=== PATIENT | male | born 1950 | race Two or more races ===

== ENCOUNTER 2017-03-24 13:59 | Emergency (ER) | payer MEDICARE, OTHER ==
[~2017-03-24] VITALS: Ht 162.6 cm; Wt 81.6 kg
[~2017-03-24 13:59] MED LIST: NOVALOG INSULIN
[2017-03-24] MEDS ORDERED: SILVER SULFADIAZINE 1% CREAM 50 GM TP ONE (14:15)
--- NOTE | 2017-03-24 14:20 | NUR ---
dressing applied to LT foot per md order.
[2017-03-24] MEDS ORDERED: SILVER SULFADIAZINE 1% CREAM 25 GM TUBE TP ONE (14:25)
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
== END 2017-03-24 14:34 | disposition home or self-care (01) ==
LOC: ER 14:02
DX: T25.232A Burn of second degree of left toe(s) (nail), initial encounter (principal); I10 Essential (primary) hypertension; F32.9 Major depressive disorder, single episode, unspecified; E11.9 Type 2 diabetes mellitus without complications; Z79.4 Long term (current) use of insulin; Z88.1 Allergy status to other antibiotic agents; Z94.0 Kidney transplant status; X11.8XXA Contact with other hot tap-water, initial encounter; Y93.G3 Activity, cooking and baking; Y92.009 Unspecified place in unspecified non-institutional (private) residence as the place of occurrence of the external cause; Y99.8 Other external cause status
CPT/HCPCS: 16020; A4663

== ENCOUNTER 2017-09-16 20:19 | Emergency (ER) | payer MEDICARE, MEDICAID ==
[~2017-09-16] VITALS: Ht 160 cm; Wt 81.6 kg
[2017-09-16] MEDS ORDERED: [UNRECOGNIZED DRUG - OTHER] (20:39)
[2017-09-16] MEDS ORDERED: PROPRANOLOL 20 MG (20:39)
[2017-09-16] MEDS ORDERED: GENGRAF (20:39)
[2017-09-16] MEDS ORDERED: SIMVASTATIN (20:39)
[2017-09-16] MEDS ORDERED: CYCLOSPORINE 25 MG (20:39)
[2017-09-16] MEDS ORDERED: EZETIMIBE (20:39)
[2017-09-16] MEDS ORDERED: MOD (20:39)
[2017-09-16] MEDS ORDERED: RANITIDINE 150 MG (20:39)
[2017-09-16] MEDS ORDERED: NIFEDIPINE 30 MG (20:39)
[2017-09-16] MEDS ORDERED: LEVEMIR (20:39)
--- NOTE | 2017-09-16 21:55 | NUR ---
PT DECIDED TO LEAVE . STATED HE WAS TIRED OF WAITING.
== END 2017-09-16 21:55 | disposition left against medical advice (07) ==
LOC: ER 20:19
DX: Z53.21 Procedure and treatment not carried out due to patient leaving prior to being seen by health care provider (principal)
CPT/HCPCS: A4663

== ENCOUNTER 2017-09-28 23:38 | Emergency (ER) | payer MEDICARE, MEDICAID ==
[~2017-09-28] VITALS: Ht 162.6 cm; Wt 81.6 kg
[~2017-09-28 23:38] MED LIST changes: +CYCLOSPORINE 25 MG; +EZETIMIBE; +GENGRAF; +LEVEMIR; +MOD; +NIFEDIPINE 30 MG; +PROPRANOLOL 20 MG; +RANITIDINE 150 MG; +SIMVASTATIN; +[UNRECOGNIZED DRUG - OTHER]
--- NOTE | 2017-09-29 00:01 | NUR ---
[id number] who stated she will dispatch officers to come take a report from the pt.
[2017-09-29] MEDS ORDERED: HYDROCODONE/APAP 10-325 MG TABLET PO ONE (00:15)
[2017-09-29] MEDS ORDERED: ONDANSETRON ODT 4 MG TAB.RAPDIS SL ONE (00:15)
[2017-09-29] MEDS ORDERED: HYDROCODONE/APAP 10-325 MG TABLET ONE (00:32)
[2017-09-29] MEDS ORDERED: ONDANSETRON ODT 4 MG TAB.RAPDIS ONE (00:32)
--- NOTE | 2017-09-29 01:24 | NUR ---
Patient does not wish to proceed with medical care recommended by Dr. Pena. Patient given information related to possible complications, up to and including , which could occur as a result of leaving the hospital at this time. Patient verbalizes understanding of risks involved due to leaving against medical advice. Patient has signed AMA form. Written and verbal after care instructions given. Patient verbalizes understanding of instructions.
== END 2017-09-29 01:33 | disposition home or self-care (01) ==
LOC: ER 23:43
DX: M54.2 Cervicalgia (principal); M25.561 Pain in right knee; I10 Essential (primary) hypertension; E66.9 Obesity, unspecified; E11.9 Type 2 diabetes mellitus without complications; Z79.4 Long term (current) use of insulin; Z88.2 Allergy status to sulfonamides; Z98.890 Other specified postprocedural states; V03.10XA Pedestrian on foot injured in collision with car, pick-up truck or van in traffic accident, initial encounter; Y92.410 Unspecified street and highway as the place of occurrence of the external cause; Y93.89 Activity, other specified; Y99.8 Other external cause status
CPT/HCPCS: 72125; 72170; 73551; 73560; A4663; Q0162

== ENCOUNTER 2017-10-15 23:24 | Inpatient (IN) | payer MEDICARE, MEDICAID ==
[~2017-10-15] VITALS: Ht 152.4 cm; Wt 95.3 kg
[2017-10-16] VITALS (23 sets, daily range): BP systolic 95–179; BP diastolic 52–96
[2017-10-16] MEDS ORDERED: LABETALOL HCL 100 MG/20 ML VIAL IV ONE ×2 (00:15→03:15)
[2017-10-16] MEDS ORDERED: IV NORMAL SALINE 500 ML BAG IV ONE (00:15)
[2017-10-16] MEDS ORDERED: ONDANSETRON IV *ER 4 MG/2 ML VIAL IV ONE (00:15)
[2017-10-16] MEDS ORDERED: TAMSULOSIN CAP 0.4MG (00:18)
[2017-10-16] MEDS ORDERED: PANTOPRAZOLE TAB 40MG (00:18)
--- NOTE | 2017-10-16 00:20 | NUR ---
ASKED FOR LIST OF MEDICATIONS AND SHE DOESN'T HAVE A LIST.WILL BRING IN MEDS
[2017-10-16 00:22] LABS: BASOPHILS # (AUTO) 0.1 K/uL (0.0-8.0); BASOPHILS % (AUTO) 0.9 % (0.0-2.0); EOSINOPHILS # (AUTO) 0.1 K/uL (0.0-0.7); EOSINOPHILS % (AUTO) 1.5 % (0.0-7.0); HEMATOCRIT 43.5 % (36.7-47.1); HEMOGLOBIN 14.2 g/dL (12.5-16.3); LYMPHOCYTES # (AUTO) 1.2 K/uL (20.0-40.0); LYMPHOCYTES % (AUTO) 22.7 % (20.5-51.5); MEAN CORPUSCULAR HEMOGLOBIN 28.4 uug (23.8-33.4); MEAN CORPUSCULAR HGB CONC 33 g/dL (32.5-36.3); MEAN CORPUSCULAR VOLUME 86.8 fL (73.0-96.2); MONOCYTES # (AUTO) 0.5 K/uL (2.0-10.0); MONOCYTES % (AUTO) 8.2 % (0.0-11.0); NEUTROPHILS # (AUTO) 3.7 K/uL (1.8-8.9); NEUTROPHILS % (AUTO) 66.7 % (38.5-71.5); PLATELET COUNT (AUTO) 194 K/uL (152-348); RED BLOOD CELL COUNT(AUTO) 5.01 MIL/uL (4.06-5.63); WHITE BLOOD COUNT (AUTO) 5.5 K/uL (3.6-10.2)
[2017-10-16] MEDS ORDERED: LORAZEPAM 2 MG/1 ML VIAL IV ONE ×3 (00:30→02:45)
[2017-10-16] MEDS ORDERED: LABETALOL HCL 100 MG/20 ML VIAL ONE (00:31)
[2017-10-16] MEDS ORDERED: ONDANSETRON 4 MG/2 ML VIAL ONE (00:31)
--- NOTE | 2017-10-16 00:33 | NUR ---
Pt seen by Dr. Mcgill. IV established, labs drawn and sent. Pt medicated for discomfort, will monitor for effects of medication. Fluid bolus infusing freely to gravity. Pt to CT via sergio
[2017-10-16 00:37] LABS: BILIRUBIN,DIRECT 0.1 mg/dL (0.0-0.2); BILIRUBIN,TOTAL 0.7 mg/dL (0.2-1.0); CREATININE 2.5 mg/dL (0.6-1.3); TOTAL PROTEIN, SERUM 7.4 g/dL (6.4-8.2)
[2017-10-16] MEDS ORDERED: LORAZEPAM 2 MG/1 ML VIAL ONE ×3 (00:37→02:49)
--- NOTE | 2017-10-16 00:45 | NUR ---
Pt returned from CT via gurney. Pt continues to be confused. Attempting to climb out of bed, pulling at lines and wires. Unable to re-direct, family at bedside. Pt placed in soft wrists restraints.
[2017-10-16 00:59] LABS: *AMPHETAMINE, URINE NEGATIVE (NEGATIVE); *BARBITURATE, URINE NEGATIVE (NEGATIVE); *CANNABINOID, URINE NEGATIVE (NEGATIVE); *COCCAINE, URINE NEGATIVE (NEGATIVE); *OPIATE, URINE NEGATIVE (NEGATIVE); *PHENCYCLIDINE SCREEN,URINE NEGATIVE (NEGATIVE)
[2017-10-16] MEDS ORDERED: INSULIN REGULAR, HUMAN 100 UNITS in IV NORMAL SALINE 100 ML IV ONE ×2 (01:00)
--- NOTE | 2017-10-16 01:00 | NUR ---
Unable to obtain accurate blood pressure due to pt moving, restless and cont pulling at lines. MD notified, awaiting further orders.
[2017-10-16] MEDS ORDERED: IV NORMAL SALINE 1000 ML BAG IV ONE (01:15)
[2017-10-16] MEDS ORDERED: diphenhydrAMINE 50 MG/1 ML VIAL IV ONE (01:30)
[2017-10-16] MEDS ORDERED: HALOPERIDOL LACTATE 5 MG/1 ML VIAL IV ONE (01:30)
--- NOTE | 2017-10-16 01:35 | NUR ---
After multiple medications, repositioning and restraints remain in place a bp was obtained. MD notified awaiting further orders.
[2017-10-16] MEDS ORDERED: HALOPERIDOL LACTATE 5 MG/1 ML VIAL ONE (01:37)
[2017-10-16] MEDS ORDERED: diphenhydrAMINE 50 MG/1 ML VIAL ONE (01:45)
[2017-10-16 01:53] LABS: ABG BASE EXCESS -3.1 mmol/L; ABG HCO3 22.6 mmol/L; ABG PCO2 42.8 mmHg (35.0-45.0); ABG PH 7.341 (7.350-7.450); ABG PO2 59.2 mmHg (75.0-100.0); ABG SITE RIGHT RADIAL; ABG TOTAL HEMOGLOBIN 14.1 G/dL (13.5-18.0); COHb 1.5 % (0.5-1.5); MetHb 0.3 % (0.0-1.5); O2Hb 87.4 % (94.0-97.0); VENT MODE ROOM AIR
[2017-10-16 01:58] LABS: *BILIRUBIN,URIN NEGATIVE (NEGATIVE); *BLOOD, URINE Trace-lysed (NEGATIVE); *CLARITY,URINE CLEAR (CLEAR); *COLOR,URINE STRAW (YELLOW); *KETONES,URINE NEGATIVE (NEGATIVE); *PROTEIN,URINE 2+ (NEGATIVE); *UROBILINOGEN,URINE 0.2 E.U./dl (NORMAL); LEUKOCYTE ESTERASE ,URINE NEGATIVE (NEGATIVE); NITRITE, URINE NEGATIVE (NEGATIVE)
[2017-10-16 02:06] LABS: UGLUCOSE 2+ (NEGATIVE)
[2017-10-16 02:08] LABS: BACTERIA,URINE NONE SEEN /HPF (NONE SEEN); RBC,URINE 0-3 /HPF (0-3); SQUAMOUS EPITHELIAL CELL,UR FEW /HPF (NONE SEEN); WBC,URINE NONE SEEN /HPF (0-3)
[2017-10-16] MEDS ORDERED: INSULIN REGULAR, HUMAN 300 UNIT/3 ML VIAL ONE (02:50)
--- NOTE | 2017-10-16 03:05 | NUR ---
Dr. Mcgill notified of pt's cont elevated bp and pt was medicated, will monitor for effects.
--- NOTE | 2017-10-16 03:25 | NUR ---
initial blood sugar from lab draw was 827. Finger stick prior to starting insulin drip was "hi"
--- NOTE | 2017-10-16 04:05 | NUR ---
Report called to JESSENIA Fowler. Preparing to transfer pt to the CCU
--- NOTE | 2017-10-16 04:48 | NUR ---
f/s done and result was 536 on insulin drip at 10 units/hr received from ER , called md service .on insulin pre -printed physician orders . PATIENT VERY CONFUSED RESTRAINTS protocol observed followed and implemented . patient maex4. doesn't follow commands .Andres to bsd . 02 nasal cannula at 3 l/min . no family noted .no belongings noted .
[2017-10-16] MEDS ORDERED: INSULIN REGULAR, HUMAN 100 UNIT in IV NORMAL SALINE 99 ML IV PRN ×2 (05:00)
--- NOTE | 2017-10-16 05:00 | NUR ---
spoked with doctor HAQUE and informed about patient mentation .,confused and fs of 536 with order to increase insulin drip to 12 units /hr and continue to follow insulin iv drip protocol .
[2017-10-16] MEDS ORDERED: ACETAMINOPHEN ES 500 MG TABLET PO PRN (05:15)
[2017-10-16] MEDS ORDERED: ONDANSETRON 4 MG/2 ML VIAL IV PRN (05:15)
[2017-10-16] MEDS ORDERED: hydrALAZINE HCL 20 MG/1 ML VIAL IV PRN (05:15)
[2017-10-16] MEDS ORDERED: IV NS 1000 ML 1,000 ML IV SCH (05:15)
[2017-10-16] MEDS ORDERED: hydrALAZINE HCL 20 MG/1 ML VIAL ONE (05:36)
[2017-10-16] MEDS: BLOOD SUGAR DIAGNOSTIC 1 EACH STRIP VI SCH ×19 (06:00→23:00)
[2017-10-16 06:32] LABS: CREATININE 2.3 mg/dL (0.6-1.3); POTASSIUM 4.5 mmol/L (3.5-5.1)
--- NOTE | 2017-10-16 07:00 | NUR ---
CONCERNING THE EMAR WITH THE ACCU CHECK AT 0600AM AND 0700AM STILL APPEARING MAGENTA. PT IS ON INSULIN DRIP. WORKERS COMPENSATION CLAIMS SPECIALIST RN DOCUMENTED THE FINGERSTICKS RESULT ON BOTH 0600A WHICH IS 408 IN HER NURSING NOTES AND HAD A COVERAGE EXTRA ORDER FROM THE MD TO CONTINUE INSULIN DRIP TO 12UNITS. AT 0700AM FS IS 232, AND WITH INSULIN DRIP PROTOCOL, THE RATE DROPPED DOWN TO 2UNITS WITH 2 RN'S SIGNATURES.
--- NOTE | 2017-10-16 07:00 | NUR ---
0448- FINGERSTICK DONE B/S IS 536 CALLED MD ,WITH ORDER TO INCREASE TO 12 UNITS/HR . 0600-FINGERSTICK B/S 408 CONTINUE WITH 12 UNITS /HR. 0700- FINGERSTICK B/S 232 DECREASE TO 2 UNITS /HR .
--- NOTE | 2017-10-16 07:25 | NUR ---
pt is noted to be agitated. Restraints are noted on the pt, open restraints to check for circulation, circulation is good. Noted insulin drip at 2 units per hour is programed in the pump. Blood sugar check being done by arelis kent. Will continue to monitor. Addendum: 10/16/17 at 1140 by BROCK VASQUES RN PT IS ON 3L NC, NO S/S OF RESPIRATORY DISTRESS NOTED. NO PAIN NOTED. ALL SAFETY NEEDS ARE MET.
--- NOTE | 2017-10-16 08:18 | NUR ---
DR CHESTER IS HERE TO ASSESS THE PT, PER DR. CHESTER PUT PICC LINE ORDER IN, POSSIBLE PLACEMENT OF NG TOMORROW.
[2017-10-16] MEDS ORDERED: ACETAMINOPHEN 650 MG SUPP.RECT RC PRN (08:30)
[2017-10-16] MEDS: IV NS 1000 ML 1,000 ML IV PRN (08:49)
--- NOTE | 2017-10-16 09:00 | NUR ---
PICC IS INSERTED BY A PICC LINE NURSE JACQUE. CONTRERAS S/S OF BLEEDING NOTED.
--- NOTE | 2017-10-16 10:24 | NUR ---
talked to the pt's stephanie bacon, asked in regards of dosage of the pt's home medication. Per the , "I will fax it over", provided Med Surg number due to the fact that CCU fax is not working
--- NOTE | 2017-10-16 11:45 | NUR ---
PER Jared LUNA "CONTINUE EVERYTHING FROM THE LIST".
--- NOTE | 2017-10-16 11:54 | NUR ---
RECEIVED FAX FROM THE PT'S WITH PT'S MEDICATIONS. PAGED COMBINATION MACHINE TENDER IN REGARDS OF THE MEDICATIONS, AWAITING RESPONSE. Addendum: 10/16/17 at 1223 by BROCK VASQUES RN the medication list is incomplete, some medication's dosage varies in its strength. Addendum: 10/16/17 at 1232 by BROCK VASQUES RN TALKED TO THE , PER "I WILL BE COMING OVER WITH HIS MEDICATIONS, THERE ARE TWO BOTTLES [OF THE SAME MEDICATION, WITH DIFFERENT DOSAGE]". "I WILL BE THERE BEFORE VISITATION HOURS IS OVER.'
[2017-10-16] MEDS ORDERED: EZET1TAB27 PO (12:01)
[2017-10-16] MEDS ORDERED: CYCL100C PO (12:01)
[2017-10-16] MEDS ORDERED: DONE10TA11 PO (12:01)
[2017-10-16] MEDS ORDERED: MYCO250C PO (12:01)
[2017-10-16] MEDS ORDERED: METO50TA16 PO (12:03)
[2017-10-16] MEDS ORDERED: PROP20TA7 PO (12:03)
[2017-10-16] MEDS ORDERED: EZET1TAB31 PO (12:03)
[2017-10-16] MEDS ORDERED: CITA20TA19 PO (12:03)
[2017-10-16] MEDS ORDERED: PRED-170 PO (12:05)
[2017-10-16] MEDS ORDERED: NIFE30TA2 PO (12:05)
[2017-10-16] MEDS ORDERED: HYDR-3326 PO (12:05)
[2017-10-16] MEDS ORDERED: CYCL25CA13 PO (12:06)
[2017-10-16] MEDS ORDERED: SULF1TAB47 PO (12:06)
[2017-10-16 12:40] LABS: CREATININE 2.3 mg/dL (0.6-1.3); POTASSIUM 3.7 mmol/L (3.5-5.1)
[2017-10-16] MEDS ORDERED: RANI150T12 PO (14:17)
[2017-10-16] MEDS ORDERED: TAMS-3 PO (14:17)
[2017-10-16] MEDS ORDERED: METO50TA7 PO (14:17)
[2017-10-16] MEDS ORDERED: INSU100V10 SQ (14:17)
[2017-10-16] MEDS ORDERED: INSU100V11 SQ (14:19)
[2017-10-16] MEDS ORDERED: LIRA0.6P2 SUBCUT (14:19)
[2017-10-16] MEDS ORDERED: HYDROCODONE/APAP 5-325MG TABLET PO PRN (15:00)
[2017-10-16] MEDS ORDERED: INSULIN ASPART 1000 UNITS/10 ML VIAL(NOVOLOG) SQ PRN (15:00)
--- NOTE | 2017-10-16 19:00 | NUR ---
restraints are removed, no skin breakdown noted Addendum: 10/16/17 at 1901 by BROCK VASQUES RN occurred at 1620
[2017-10-16] MEDS: CYCLOSPORINE 25 MG PO SCH (21:04)
[2017-10-16] MEDS: [UNRECOGNIZED DRUG - OTHER] PO SCH (21:04)
[2017-10-17] VITALS (24 sets, daily range): BP systolic 96–157; BP diastolic 41–94
[2017-10-17] MEDS: BLOOD SUGAR DIAGNOSTIC 1 EACH STRIP VI SCH ×13 (00:04→21:01)
[2017-10-17] MEDS: LORAZEPAM 2 MG/1 ML VIAL IV PRN (00:48)
[2017-10-17] MEDS: IV NS 1000 ML 1,000 ML IV PRN ×3 (02:40→23:15)
[2017-10-17 04:45] LABS: CREATININE 1.7 mg/dL (0.6-1.3); MAGNESIUM 1.9 mg/dL (1.8-2.4); PHOSPHOROUS 4.1 mg/dL (2.5-4.9); POTASSIUM 3.8 mmol/L (3.5-5.1)
[2017-10-17 05:24] LABS: BASOPHILS # (AUTO) 0.1 K/uL (0.0-8.0); BASOPHILS % (AUTO) 0.8 % (0.0-2.0); EOSINOPHILS # (AUTO) 0.1 K/uL (0.0-0.7); HEMATOCRIT 38.9 % (36.7-47.1); HEMOGLOBIN 13.1 g/dL (12.5-16.3); LYMPHOCYTES # (AUTO) 1.9 K/uL (20.0-40.0); LYMPHOCYTES % (AUTO) 25.1 % (20.5-51.5); MEAN CORPUSCULAR HEMOGLOBIN 28.5 uug (23.8-33.4); MEAN CORPUSCULAR HGB CONC 34 g/dL (32.5-36.3); MEAN CORPUSCULAR VOLUME 84.7 fL (73.0-96.2); MONOCYTES # (AUTO) 0.7 K/uL (2.0-10.0); MONOCYTES % (AUTO) 10.1 % (0.0-11.0); NEUTROPHILS # (AUTO) 4.6 K/uL (1.8-8.9); PLATELET COUNT (AUTO) 182 K/uL (152-348); RED BLOOD CELL COUNT(AUTO) 4.59 MIL/uL (4.06-5.63); WHITE BLOOD COUNT (AUTO) 7.4 K/uL (3.6-10.2)
[2017-10-17] MEDS: NIFEdipine XL 30 MG TABSR PO SCH (08:20)
[2017-10-17] MEDS: CITALOPRAM 20 MG TABLET PO SCH (08:20)
[2017-10-17] MEDS: METOPROLOL SUCCINATE XL 50 MG TAB.SR.24H PO SCH (08:21)
[2017-10-17] MEDS: DONEPEZIL 10 MG TABLET PO SCH (08:23)
[2017-10-17] MEDS: TAMSULOSIN HCL 0.4 MG CAP.SR.24H PO SCH (08:24)
[2017-10-17] MEDS: MYCOPHENOLATE MOFETIL 250 MG CAPSULE PO SCH ×2 (08:34→20:49)
[2017-10-17] MEDS: [UNRECOGNIZED DRUG - OTHER] PO SCH ×2 (08:35→20:49)
[2017-10-17] MEDS: CYCLOSPORINE PO SCH ×2 (08:35→20:49)
[2017-10-17] MEDS ORDERED: INSULIN GLARGINE,HUM 300 UNITS/3 ML CARTRIDGE SQ SCH (09:00)
[2017-10-17] MEDS ORDERED: predniSONE 5 MG TABLET PO SCH (09:00)
[2017-10-17] MEDS: [UNRECOGNIZED DRUG - OTHER] PO SCH ×2 (09:20→20:51)
[2017-10-17] MEDS: CYCLOSPORINE 25 MG PO SCH ×2 (09:20→20:51)
[2017-10-17] MEDS ORDERED: INSULIN REGULAR, HUMAN 300 UNIT/3 ML VIAL SQ ONE (12:30)
--- NOTE | 2017-10-17 12:30 | NUR ---
dr rebollar is here to assess the pt, pt report given
[2017-10-17] MEDS ORDERED: DEXTROSE 50% 50 ML DISP.SYRIN IV PRN (12:45)
[2017-10-17] MEDS: predniSONE 5 MG TABLET PO SCH (15:00)
[2017-10-17] MEDS: INSULIN REGULAR, HUMAN 300 UNIT/3 ML VIAL SQ PRN (16:59)
[2017-10-17] MEDS: [UNRECOGNIZED DRUG - OTHER] PO SCH (20:48)
[2017-10-17] MEDS: SIMVASTATIN PO SCH (20:48)
[2017-10-17] MEDS: EZETIMIBE PO SCH (20:48)
[2017-10-17] MEDS: FAMOTIDINE 20 MG TABLET PO SCH (20:51)
[2017-10-17] MEDS: INSULIN REGULAR, HUMAN 300 UNITS/3 ML VIAL SQ PRN (21:02)
[2017-10-18] VITALS (10 sets, daily range): BP systolic 103–145; BP diastolic 55–74
[2017-10-18 05:13] LABS: CREATININE 1.3 mg/dL (0.6-1.3); MAGNESIUM 1.9 mg/dL (1.8-2.4); POTASSIUM 4.7 mmol/L (3.5-5.1)
[2017-10-18 05:22] LABS: BASOPHILS % (AUTO) 0.5 % (0.0-2.0); EOSINOPHILS # (AUTO) 0.1 K/uL (0.0-0.7); EOSINOPHILS % (AUTO) 1.2 % (0.0-7.0); HEMATOCRIT 39.3 % (36.7-47.1); HEMOGLOBIN 12.8 g/dL (12.5-16.3); LYMPHOCYTES # (AUTO) 1.4 K/uL (20.0-40.0); MEAN CORPUSCULAR HEMOGLOBIN 28.1 uug (23.8-33.4); MEAN CORPUSCULAR HGB CONC 33 g/dL (32.5-36.3); MEAN CORPUSCULAR VOLUME 85.8 fL (73.0-96.2); MONOCYTES # (AUTO) 0.5 K/uL (2.0-10.0); MONOCYTES % (AUTO) 7.9 % (0.0-11.0); NEUTROPHILS # (AUTO) 4.7 K/uL (1.8-8.9); NEUTROPHILS % (AUTO) 69.4 % (38.5-71.5); PLATELET COUNT (AUTO) 179 K/uL (152-348); RED BLOOD CELL COUNT(AUTO) 4.57 MIL/uL (4.06-5.63); WHITE BLOOD COUNT (AUTO) 6.7 K/uL (3.6-10.2)
[2017-10-18] MEDS: TAMSULOSIN HCL 0.4 MG CAP.SR.24H PO SCH (07:50)
[2017-10-18] MEDS: CITALOPRAM 20 MG TABLET PO SCH (07:50)
[2017-10-18] MEDS: predniSONE 5 MG TABLET PO SCH (07:52)
[2017-10-18] MEDS: NIFEdipine XL 30 MG TABSR PO SCH (07:52)
[2017-10-18] MEDS: METOPROLOL SUCCINATE XL 50 MG TAB.SR.24H PO SCH (07:53)
[2017-10-18] MEDS: DONEPEZIL 10 MG TABLET PO SCH (07:53)
[2017-10-18] MEDS: CYCLOSPORINE 25 MG PO SCH ×2 (07:54→21:07)
[2017-10-18] MEDS: [UNRECOGNIZED DRUG - OTHER] PO SCH ×2 (07:54→21:07)
[2017-10-18] MEDS: MYCOPHENOLATE MOFETIL 250 MG CAPSULE PO SCH ×2 (07:54→20:52)
[2017-10-18] MEDS: [UNRECOGNIZED DRUG - OTHER] PO SCH ×2 (07:55→21:07)
[2017-10-18] MEDS: CYCLOSPORINE PO SCH ×2 (07:55→21:07)
[2017-10-18] MEDS: BLOOD SUGAR DIAGNOSTIC 1 EACH STRIP VI SCH ×4 (08:23→21:04)
[2017-10-18] MEDS: INSULIN REGULAR, HUMAN 300 UNIT/3 ML VIAL SQ PRN ×3 (08:25→16:05)
--- NOTE | 2017-10-18 08:55 | NUR ---
Dr. Worthy here to see pt. Full report given. New orders received. stated that it was okay to downgrade pt to telemetry status.
[2017-10-18] MEDS ORDERED: SULFAMETH/TRIMETH 800/160 MG TABLET PO SCH (09:00)
--- NOTE | 2017-10-18 09:30 | NUR ---
Physical therapy here to see pt.
[2017-10-18] MEDS: LIRAGLUTIDE SQ SCH (09:37)
[2017-10-18] MEDS: [UNRECOGNIZED DRUG - OTHER] SQ SCH (09:37)
--- NOTE | 2017-10-18 13:25 | NUR ---
Full telephone SBAR report given to BENJAMIN Mills. Pt wheeled and transferred to 220-T with telemetry box. Pt stable and nad noted upon transferring to the unit.
--- NOTE | 2017-10-18 13:30 | NUR ---
PT RECEIVED FROM CCU VIA WHEELCHAIR IN STABLE CONDITION.V/S ARE STABLE.
--- NOTE | 2017-10-18 20:15 | NUR ---
nsg: called Dr. Worthy to verify inpatient status, whether tele or regan. per Dr. Worthy, pt is a regan status.
[2017-10-18] MEDS: SIMVASTATIN PO SCH (20:53)
[2017-10-18] MEDS: FAMOTIDINE 20 MG TABLET PO SCH (20:53)
[2017-10-18] MEDS: [UNRECOGNIZED DRUG - OTHER] PO SCH (20:53)
[2017-10-18] MEDS: EZETIMIBE PO SCH (20:53)
--- NOTE | 2017-10-18 21:00 | NUR ---
nsg: pt had episode of projectile vomiting. medicated with zofran. will monitor. hs meds on hold at this time until n/v subsided.
[2017-10-18] MEDS: INSULIN REGULAR, HUMAN 300 UNITS/3 ML VIAL SQ PRN (21:05)
--- NOTE | 2017-10-18 22:00 | NUR ---
nsg: pt feels better. no episode of vomiting. gave all hs po meds.
[2017-10-18] MEDS: LORAZEPAM 2 MG/1 ML VIAL IV PRN (22:13)
[2017-10-19 00:08] VITALS: BP 132/63
[2017-10-19] MEDS: LORAZEPAM 2 MG/1 ML VIAL IV PRN (03:52)
[2017-10-19 04:00] VITALS: BP 186/81
--- NOTE | 2017-10-19 05:30 | NUR ---
NSG: pt awake but confused. a/o x 1, needs reorientation that he is in the hospital. received 2mg ativan ivp. pt unsteady, needs a sitter for safety. called , talked to pt but refused to come at this time. per to just medicate pt so he wont be anxious. explained to that ativan has been given, and that pt still wanders in the hallway, unsteady, wants to leave the hospital. cont to monitor. notified charge nurse and metal hanging supervisor that pt needs a 1:1 sitter for safety.
[2017-10-19 06:20] VITALS: BP 156/62
--- NOTE | 2017-10-19 06:55 | NUR ---
nsg: pt is still confused, a/o x 1. spoke with , upset that she's been called several times. pt also called 911. pt needs sitter.
[2017-10-19] MEDS: BLOOD SUGAR DIAGNOSTIC 1 EACH STRIP VI SCH ×2 (07:46→11:07)
[2017-10-19] MEDS: INSULIN REGULAR, HUMAN 300 UNIT/3 ML VIAL SQ PRN ×2 (07:48→11:08)
[2017-10-19 08:00] VITALS: BP 138/82
--- NOTE | 2017-10-19 08:10 | NUR ---
SEEN BY DR JIMENEZ MADE AWARE ABOUT SEVERE CONFUSION AND WONDERS AROUND CONTINUE 1:1 SITTER, CHANGE STATUS TO TELE, PLAN DC TODAY IF LESS CONFUSE
[2017-10-19] MEDS: NIFEdipine XL 30 MG TABSR PO SCH (08:30)
[2017-10-19] MEDS: TAMSULOSIN HCL 0.4 MG CAP.SR.24H PO SCH (08:30)
[2017-10-19] MEDS: CITALOPRAM 20 MG TABLET PO SCH (08:30)
[2017-10-19] MEDS: DONEPEZIL 10 MG TABLET PO SCH (08:30)
[2017-10-19] MEDS: METOPROLOL SUCCINATE XL 50 MG TAB.SR.24H PO SCH (08:30)
[2017-10-19] MEDS: predniSONE 5 MG TABLET PO SCH (08:30)
[2017-10-19] MEDS: [UNRECOGNIZED DRUG - OTHER] PO SCH (08:31)
[2017-10-19] MEDS: CYCLOSPORINE PO SCH (08:31)
[2017-10-19] MEDS: [UNRECOGNIZED DRUG - OTHER] PO SCH (08:32)
[2017-10-19] MEDS: CYCLOSPORINE 25 MG PO SCH (08:32)
[2017-10-19 09:44] LABS: BILIRUBIN,TOTAL 0.9 mg/dL (0.2-1.0); CREATININE 1.5 mg/dL (0.6-1.3); MAGNESIUM 1.8 mg/dL (1.8-2.4); PHOSPHOROUS 3.1 mg/dL (2.5-4.9); POTASSIUM 4.2 mmol/L (3.5-5.1); TOTAL PROTEIN, SERUM 6.9 g/dL (6.4-8.2)
[2017-10-19 09:58] LABS: BASOPHILS % (AUTO) 0.4 % (0.0-2.0); EOSINOPHILS # (AUTO) 0.1 K/uL (0.0-0.7); EOSINOPHILS % (AUTO) 1.9 % (0.0-7.0); HEMATOCRIT 40.9 % (36.7-47.1); HEMOGLOBIN 13.3 g/dL (12.5-16.3); LYMPHOCYTES # (AUTO) 1.4 K/uL (20.0-40.0); LYMPHOCYTES % (AUTO) 19.5 % (20.5-51.5); MEAN CORPUSCULAR HEMOGLOBIN 27.8 uug (23.8-33.4); MEAN CORPUSCULAR HGB CONC 32 g/dL (32.5-36.3); MEAN CORPUSCULAR VOLUME 85.9 fL (73.0-96.2); MONOCYTES # (AUTO) 0.7 K/uL (2.0-10.0); MONOCYTES % (AUTO) 9.8 % (0.0-11.0); NEUTROPHILS # (AUTO) 4.9 K/uL (1.8-8.9); NEUTROPHILS % (AUTO) 68.4 % (38.5-71.5); PLATELET COUNT (AUTO) 197 K/uL (152-348); RED BLOOD CELL COUNT(AUTO) 4.76 MIL/uL (4.06-5.63); WHITE BLOOD COUNT (AUTO) 7.2 K/uL (3.6-10.2)
[2017-10-19] MEDS: MYCOPHENOLATE MOFETIL 250 MG CAPSULE PO SCH (11:05)
[2017-10-19] MEDS: [UNRECOGNIZED DRUG - OTHER] SQ SCH (11:07)
[2017-10-19] MEDS: LIRAGLUTIDE SQ SCH (11:07)
[2017-10-19 11:47] VITALS: BP 149/87
--- NOTE | 2017-10-19 12:00 | NUR ---
UPDATED OF PATIENT STATUS WITH DISCHARGE ORDER
--- NOTE | 2017-10-19 13:00 | NUR ---
MADE DC ORDER SO WITH SCOUT SNIPER
[2017-10-19 16:00] VITALS: BP 167/97
--- NOTE | 2017-10-19 16:08 | NUR ---
DISCHARGED HOME STABLE ACCOMPANIED BY WITH HOME INSTRUCTION
== END 2017-10-19 16:08 | disposition home or self-care (01) | DRG 637 ==
LOC: ER 23:26 → CCU 10-16 04:00 → TELE 10-18 13:24 → TELE-TD 10-18 20:15 → TELE 10-19 08:02
PROVIDERS: ADMIT Internal Medicine Nephrology; ATTEND Internal Medicine Nephrology
PROC: 02HV33Z Insertion of Infusion Device into Superior Vena Cava, Percutaneous Approach (ICD-10-PCS; principal; 2017-10-16)
PROC: B548ZZA Ultrasonography of Superior Vena Cava, Guidance (ICD-10-PCS; 2017-10-16)
DX: E11.00 Type 2 diabetes mellitus with hyperosmolarity without nonketotic hyperglycemic-hyperosmolar coma (NKHHC) (principal); G93.41 Metabolic encephalopathy; T86.12 Kidney transplant failure; E66.01 Morbid (severe) obesity due to excess calories; R13.10 Dysphagia, unspecified; Z68.41 Body mass index [BMI] 40.0-44.9, adult; E87.1 Hypo-osmolality and hyponatremia; Z79.4 Long term (current) use of insulin; E86.9 Volume depletion, unspecified; D64.9 Anemia, unspecified; Z79.899 Other long term (current) drug therapy; R09.02 Hypoxemia; R47.1 Dysarthria and anarthria; K29.70 Gastritis, unspecified, without bleeding
CPT/HCPCS: 36415; 36569; 36600; 70030-TC; 70450; 71045; 80307; 83735; 84100; 85025; 85730; 87040; 92507; 92523; 93005; 97116; A4663; J0360; J1200; J1630; J1815; J2060; J2405; J3490; J7030; J7040; J7512; J7515; J7517

== ENCOUNTER 2019-05-13 00:09 | Emergency (ER) | payer MEDICARE, MEDICAID ==
[~2019-05-13] VITALS: Ht 162.6 cm; Wt 86.2 kg
[~2019-05-13 00:09] MED LIST changes: +CITA20TA19 PO; +CYCL100C PO; +CYCL25CA13 PO; -CYCLOSPORINE 25 MG; +DONE10TA11 PO; +EZET1TAB27 PO; -EZETIMIBE; -GENGRAF; +HYDR-3326 PO; +INSU100V11 SQ; -LEVEMIR; +LIRA0.6P2 SUBCUT; +METO50TA7 PO; -MOD; +MYCO250C PO; +NIFE30TA2 PO; -NIFEDIPINE 30 MG; -NOVALOG INSULIN; +PRED-170 PO; -PROPRANOLOL 20 MG; +RANI-655 PO; -RANITIDINE 150 MG; -SIMVASTATIN; +SULF1TAB47 PO; +TAMS-3 PO; -[UNRECOGNIZED DRUG - OTHER]
--- NOTE | 2019-05-13 00:32 | NUR ---
Patient ambulated with stable gait. Speech clear, speaks in complete sentences. No neuro deficits noted. Patient came for c/o n/v since this AM. Respiratory even and unlabored no cough no sob. No cardiovascular distress noted, all pulses palpable. Denies any constipation and has been able to move his bowels.
[2019-05-13] MEDS ORDERED: ONDANSETRON 4 MG/2 ML VIAL ONE ×2 (00:40→02:56)
[2019-05-13] MEDS ORDERED: PANTOPRAZOLE SODIUM 40 MG VIAL ONE (00:41)
[2019-05-13] MEDS: ONDANSETRON 4 MG/2 ML VIAL IV ONE ×2 (00:56→02:56)
[2019-05-13] MEDS: IV NORMAL SALINE 1000 ML BAG IV ONE ×2 (00:56→01:41)
[2019-05-13] MEDS: PANTOPRAZOLE SODIUM 40 MG VIAL IV ONE (00:56)
[2019-05-13 01:02] LABS: CREATININE 1.8 mg/dL (0.6-1.3); POTASSIUM 4.7 mmol/L (3.5-5.1)
[2019-05-13 01:10] LABS: BASOPHILS # (AUTO) 0.1 K/uL (0.0-8.0); BASOPHILS % (AUTO) 0.7 % (0.0-2.0); EOSINOPHILS # (AUTO) 0.1 K/uL (0.0-0.7); HEMOGLOBIN 14.2 g/dL (12.5-16.3); LYMPHOCYTES # (AUTO) 1.3 K/uL (20.0-40.0); LYMPHOCYTES % (AUTO) 16.8 % (20.5-51.5); MEAN CORPUSCULAR HEMOGLOBIN 27.2 uug (23.8-33.4); MEAN CORPUSCULAR HGB CONC 33 g/dL (32.5-36.3); MEAN CORPUSCULAR VOLUME 82.1 fL (73.0-96.2); MONOCYTES # (AUTO) 0.6 K/uL (2.0-10.0); MONOCYTES % (AUTO) 7.7 % (0.0-11.0); NEUTROPHILS # (AUTO) 5.8 K/uL (1.8-8.9); NEUTROPHILS % (AUTO) 73.8 % (38.5-71.5); PLATELET COUNT (AUTO) 237 K/uL (152-348); RED BLOOD CELL COUNT(AUTO) 5.24 MIL/uL (4.06-5.63); WHITE BLOOD COUNT (AUTO) 7.9 K/uL (3.6-10.2)
[2019-05-13 01:13] LABS: BILIRUBIN,DIRECT 0.1 mg/dL (0.0-0.2); BILIRUBIN,TOTAL 0.8 mg/dL (0.2-1.0); TOTAL PROTEIN, SERUM 7.7 g/dL (6.4-8.2)
--- NOTE | 2019-05-13 03:09 | NUR ---
PO challenge initiated, few spoonfuls of ice provided to patient. Awaiting to re-evaluate patient progress.
[2019-05-13 03:18] LABS: *BILIRUBIN,URIN NEGATIVE (NEGATIVE); *BLOOD, URINE 1+ (NEGATIVE); *CLARITY,URINE CLEAR (CLEAR); *COLOR,URINE YELLOW (YELLOW); *KETONES,URINE NEGATIVE (NEGATIVE); *UROBILINOGEN,URINE 0.2 E.U./dl (NORMAL); LEUKOCYTE ESTERASE ,URINE NEGATIVE (NEGATIVE); NITRITE, URINE NEGATIVE (NEGATIVE); UGLUCOSE NEGATIVE (NEGATIVE)
[2019-05-13 03:26] LABS: BACTERIA,URINE NONE SEEN /HPF (NONE SEEN); SQUAMOUS EPITHELIAL CELL,UR NONE SEEN /HPF (NONE SEEN); WBC,URINE 0-3 /HPF (0-3)
--- NOTE | 2019-05-13 03:32 | NUR ---
Patient discharged to home in stable conditon. Written and verbal after care instructions given. Patient verbalizes understanding of instructions. Denies any NAD, no n/v. Patient ambulated with stable gait.
[2019-05-13 03:53] VITALS: BP 139/85
== END 2019-05-13 03:40 | disposition home or self-care (01) ==
LOC: ER 00:13
DX: N28.9 Disorder of kidney and ureter, unspecified (principal); R11.2 Nausea with vomiting, unspecified; E11.9 Type 2 diabetes mellitus without complications; Z87.891 Personal history of nicotine dependence; Z88.8 Allergy status to other drugs, medicaments and biological substances; Z79.4 Long term (current) use of insulin; Z79.899 Other long term (current) drug therapy
CPT/HCPCS: 36415; 80048; 80076; 81000; 81001; 84484; 85025; 87086; 93005; 96361; 96374; 96375; 96376; 99284; C9113; J2405 ×2; 70030-TC; A4663; J7030

== ENCOUNTER 2019-07-06 11:53 | Inpatient (IN) | payer MEDICARE, MEDICAID ==
[~2019-07-06] VITALS: Ht 160 cm; Wt 86.2 kg
[2019-07-06 12:44] LABS: BASOPHILS # (AUTO) 0.1 K/uL (0.0-8.0); EOSINOPHILS # (AUTO) 0.2 K/uL (0.0-0.7); EOSINOPHILS % (AUTO) 2.9 % (0.0-7.0); HEMATOCRIT 36.9 % (36.7-47.1); HEMOGLOBIN 11.8 g/dL (12.5-16.3); LYMPHOCYTES # (AUTO) 1.3 K/uL (20.0-40.0); LYMPHOCYTES % (AUTO) 20.2 % (20.5-51.5); MEAN CORPUSCULAR HEMOGLOBIN 27.4 uug (23.8-33.4); MEAN CORPUSCULAR HGB CONC 32 g/dL (32.5-36.3); MEAN CORPUSCULAR VOLUME 85.8 fL (73.0-96.2); MONOCYTES # (AUTO) 0.6 K/uL (2.0-10.0); NEUTROPHILS # (AUTO) 4.2 K/uL (1.8-8.9); NEUTROPHILS % (AUTO) 65.9 % (38.5-71.5); PLATELET COUNT (AUTO) 185 K/uL (152-348); RED BLOOD CELL COUNT(AUTO) 4.31 MIL/uL (4.06-5.63); WHITE BLOOD COUNT (AUTO) 6.4 K/uL (3.6-10.2)
[2019-07-06 12:53] LABS: CREATININE 2.2 mg/dL (0.6-1.3); POTASSIUM 4.6 mmol/L (3.5-5.1)
[2019-07-06] MEDS ORDERED: ASPIRIN 81 MG TAB.CHEW PO ONE (13:00)
[2019-07-06] MEDS ORDERED: NITROGLYCERIN OINT 1 GM PACKET TP ONE ×2 (13:00→13:16)
[2019-07-06 13:06] LABS: BILIRUBIN,DIRECT 0.1 mg/dL (0.0-0.2); BILIRUBIN,TOTAL 0.6 mg/dL (0.2-1.0); TOTAL PROTEIN, SERUM 6.9 g/dL (6.4-8.2)
[2019-07-06] MEDS ORDERED: ASPIRIN 81 MG TAB.CHEW ONE (13:15)
[2019-07-06] MEDS ORDERED: FUROSEMIDE 40 MG/4 ML VIAL IV ONE (13:30)
[2019-07-06] MEDS ORDERED: FUROSEMIDE 40 MG/4 ML VIAL ONE (13:48)
[2019-07-06 14:17] VITALS: BP 152/66
[2019-07-06 16:00] VITALS: BP 155/61
[2019-07-06] MEDS ORDERED: INSULIN ASPART 1000 UNITS/10 ML VIAL(NOVOLOG) SQ PRN (17:30)
[2019-07-06] MEDS ORDERED: HYDROCODONE/APAP 5-325MG TABLET PO PRN (17:30)
[2019-07-06] MEDS ORDERED: CORT25TA LEFTEYE (17:49)
[2019-07-06] MEDS ORDERED: [UNRECOGNIZED DRUG - OTHER] LEFTEYE (17:49)
[2019-07-06] MEDS ORDERED: ASPI-605 PO (17:49)
[2019-07-06] MEDS ORDERED: PRED5DRO16 LEFTEYE (18:48)
[2019-07-06] MEDS ORDERED: CYCL25CA PO (18:49)
[2019-07-06] MEDS ORDERED: BROM3DRO LEFTEYE (18:50)
[2019-07-06] MEDS ORDERED: INSU100V10 SQ (18:51)
[2019-07-06] MEDS ORDERED: NIFE60TA2 PO (19:00)
[2019-07-06] MEDS ORDERED: INSULIN REGULAR, HUMAN 300 UNITS/3 ML VIAL SQ PRN (19:00)
[2019-07-06] MEDS ORDERED: DEXTROSE 50% 50 ML DISP.SYRIN IV PRN (19:00)
[2019-07-06] MEDS ORDERED: CYCL100C PO (19:50)
[2019-07-06 20:05] VITALS: BP 135/68
[2019-07-06] MEDS ORDERED: EZETIMIBE PO SCH (21:00)
[2019-07-06] MEDS ORDERED: SIMVASTATIN PO SCH (21:00)
[2019-07-06] MEDS: prednisoLONE ACET 1% OPHT DROP 5 ML BOTTLE LEFTEYE SCH (21:08)
[2019-07-06] MEDS: BLOOD SUGAR DIAGNOSTIC 1 EACH STRIP VI SCH (21:08)
[2019-07-06] MEDS: EZETIMIBE 10 MG TABLET PO SCH (21:08)
[2019-07-06] MEDS: MYCOPHENOLATE MOFETIL 250 MG CAPSULE PO SCH (21:08)
[2019-07-06] MEDS: INSULIN GLARGINE,HUM 300 UNITS/3 ML CARTRIDGE SQ SCH (21:18)
[2019-07-06] MEDS ORDERED: cycloSPORINE 25 MG CAPSULE PO ONE (22:45)
[2019-07-07 00:20] VITALS: BP 165/83
[2019-07-07] MEDS ORDERED: NIFEdipine XL 60 MG TABSR PO ONE (00:30)
[2019-07-07 04:00] VITALS: BP 140/72
[2019-07-07] MEDS: BLOOD SUGAR DIAGNOSTIC 1 EACH STRIP VI SCH ×4 (06:39→21:05)
[2019-07-07 06:47] LABS: CREATININE 2.2 mg/dL (0.6-1.3); POTASSIUM 4.3 mmol/L (3.5-5.1)
[2019-07-07 06:48] LABS: BASOPHILS # (AUTO) 0.1 K/uL (0.0-8.0); BASOPHILS % (AUTO) 0.8 % (0.0-2.0); EOSINOPHILS # (AUTO) 0.2 K/uL (0.0-0.7); EOSINOPHILS % (AUTO) 3.1 % (0.0-7.0); HEMATOCRIT 35.9 % (36.7-47.1); HEMOGLOBIN 11.5 g/dL (12.5-16.3); LYMPHOCYTES # (AUTO) 1.6 K/uL (20.0-40.0); LYMPHOCYTES % (AUTO) 21.9 % (20.5-51.5); MEAN CORPUSCULAR HEMOGLOBIN 27.5 uug (23.8-33.4); MEAN CORPUSCULAR HGB CONC 32 g/dL (32.5-36.3); MEAN CORPUSCULAR VOLUME 85.5 fL (73.0-96.2); MONOCYTES # (AUTO) 0.6 K/uL (2.0-10.0); MONOCYTES % (AUTO) 8.5 % (0.0-11.0); NEUTROPHILS # (AUTO) 4.9 K/uL (1.8-8.9); NEUTROPHILS % (AUTO) 65.7 % (38.5-71.5); PLATELET COUNT (AUTO) 192 K/uL (152-348); WHITE BLOOD COUNT (AUTO) 7.5 K/uL (3.6-10.2)
[2019-07-07] MEDS: INSULIN REGULAR, HUMAN 300 UNIT/3 ML VIAL SQ PRN ×3 (08:29→17:12)
[2019-07-07] MEDS: CITALOPRAM 20 MG TABLET PO SCH (08:30)
[2019-07-07] MEDS: predniSONE 5 MG TABLET PO SCH (08:30)
[2019-07-07] MEDS: ASPIRIN EC 81 MG TABLET.DR PO SCH (08:30)
[2019-07-07] MEDS: FAMOTIDINE 20 MG TABLET PO SCH (08:31)
[2019-07-07] MEDS: prednisoLONE ACET 1% OPHT DROP 5 ML BOTTLE LEFTEYE SCH ×4 (08:35→20:55)
[2019-07-07] MEDS: NIFEdipine XL 60 MG TABSR PO SCH (08:39)
[2019-07-07] MEDS ORDERED: HOME MED MISCELLANEOUS LEFTEYE SCH (09:00)
[2019-07-07] MEDS ORDERED: CYCLOSPORINE MODIFIED 100 MG PO SCH (09:00)
[2019-07-07] MEDS ORDERED: VICTOZA 1.8 MG SQ SCH (09:00)
[2019-07-07] MEDS ORDERED: cycloSPORINE 25 MG CAPSULE PO ONE (09:00)
[2019-07-07] MEDS ORDERED: NIFEdipine XL 30 MG TABSR PO SCH (09:00)
[2019-07-07] MEDS: MYCOPHENOLATE MOFETIL 250 MG CAPSULE PO SCH ×2 (09:27→20:55)
[2019-07-07 11:49] VITALS: BP 128/50
[2019-07-07] MEDS ORDERED: FUROSEMIDE 40 MG/4 ML VIAL IV ONE ×2 (13:45→20:00)
[2019-07-07 16:09] VITALS: BP 117/48
[2019-07-07 20:00] VITALS: BP 138/62
[2019-07-07] MEDS: EZETIMIBE 10 MG TABLET PO SCH (20:56)
[2019-07-07] MEDS: INSULIN GLARGINE,HUM 300 UNITS/3 ML CARTRIDGE SQ SCH (21:04)
[2019-07-08 00:16] VITALS: BP 147/67
[2019-07-08 05:09] VITALS: BP 114/57
[2019-07-08] MEDS: BLOOD SUGAR DIAGNOSTIC 1 EACH STRIP VI SCH ×4 (06:36→21:15)
[2019-07-08] MEDS ORDERED: BUMETANIDE INJ 2 MG in IV DEXTROSE 5% 32 ML IV ONE (08:30)
[2019-07-08] MEDS: prednisoLONE ACET 1% OPHT DROP 5 ML BOTTLE LEFTEYE SCH ×4 (09:00→21:27)
[2019-07-08] MEDS: MYCOPHENOLATE MOFETIL 250 MG CAPSULE PO SCH ×2 (09:39→21:27)
[2019-07-08] MEDS: CITALOPRAM 20 MG TABLET PO SCH (09:39)
[2019-07-08] MEDS: ASPIRIN EC 81 MG TABLET.DR PO SCH (09:40)
[2019-07-08] MEDS: predniSONE 5 MG TABLET PO SCH (09:41)
[2019-07-08] MEDS: FAMOTIDINE 20 MG TABLET PO SCH (09:41)
[2019-07-08] MEDS: NIFEdipine XL 60 MG TABSR PO SCH (09:42)
[2019-07-08 11:44] VITALS: BP 146/65
[2019-07-08 15:33] VITALS: BP 135/67
[2019-07-08 15:35] VITALS: BP 135/67
[2019-07-08] MEDS: INSULIN REGULAR, HUMAN 300 UNIT/3 ML VIAL SQ PRN ×2 (17:43→21:31)
[2019-07-08 20:57] VITALS: BP 144/72
[2019-07-08] MEDS ORDERED: SIMVASTATIN 20 MG TABLET PO SCH (21:00)
[2019-07-08] MEDS: EZETIMIBE 10 MG TABLET PO SCH (21:26)
[2019-07-08] MEDS: INSULIN GLARGINE,HUM 300 UNITS/3 ML CARTRIDGE SQ SCH (21:29)
[2019-07-09 00:48] VITALS: BP 159/76
[2019-07-09 05:01] VITALS: BP 135/69
[2019-07-09] MEDS: BLOOD SUGAR DIAGNOSTIC 1 EACH STRIP VI SCH ×2 (06:16→11:47)
[2019-07-09 07:17] LABS: BASOPHILS # (AUTO) 0.1 K/uL (0.0-8.0); BASOPHILS % (AUTO) 1.2 % (0.0-2.0); EOSINOPHILS # (AUTO) 0.2 K/uL (0.0-0.7); EOSINOPHILS % (AUTO) 3.1 % (0.0-7.0); HEMATOCRIT 40.1 % (36.7-47.1); HEMOGLOBIN 13.1 g/dL (12.5-16.3); LYMPHOCYTES # (AUTO) 1.9 K/uL (20.0-40.0); LYMPHOCYTES % (AUTO) 33.6 % (20.5-51.5); MEAN CORPUSCULAR HEMOGLOBIN 27.6 uug (23.8-33.4); MEAN CORPUSCULAR HGB CONC 33 g/dL (32.5-36.3); MEAN CORPUSCULAR VOLUME 84.3 fL (73.0-96.2); MONOCYTES # (AUTO) 0.7 K/uL (2.0-10.0); MONOCYTES % (AUTO) 11.4 % (0.0-11.0); NEUTROPHILS # (AUTO) 2.9 K/uL (1.8-8.9); NEUTROPHILS % (AUTO) 50.7 % (38.5-71.5); PLATELET COUNT (AUTO) 222 K/uL (152-348); RED BLOOD CELL COUNT(AUTO) 4.76 MIL/uL (4.06-5.63); WHITE BLOOD COUNT (AUTO) 5.8 K/uL (3.6-10.2)
[2019-07-09 07:40] LABS: CREATININE 2.3 mg/dL (0.6-1.3); MAGNESIUM 1.5 mg/dL (1.8-2.4); PHOSPHOROUS 5.7 mg/dL (2.5-4.9); POTASSIUM 4.6 mmol/L (3.5-5.1)
[2019-07-09] MEDS: prednisoLONE ACET 1% OPHT DROP 5 ML BOTTLE LEFTEYE SCH (09:00)
[2019-07-09] MEDS ORDERED: PROLENSA 0.07% LEFTEYE SCH (09:00)
[2019-07-09] MEDS: MYCOPHENOLATE MOFETIL 250 MG CAPSULE PO SCH (09:40)
[2019-07-09] MEDS: CITALOPRAM 20 MG TABLET PO SCH (09:40)
[2019-07-09] MEDS: ASPIRIN EC 81 MG TABLET.DR PO SCH (09:41)
[2019-07-09] MEDS: FAMOTIDINE 20 MG TABLET PO SCH (09:41)
[2019-07-09] MEDS: predniSONE 5 MG TABLET PO SCH (09:41)
[2019-07-09] MEDS: NIFEdipine XL 60 MG TABSR PO SCH (09:42)
[2019-07-09 11:10] VITALS: BP 151/70
[2019-07-09] MEDS ORDERED: INFLUENZA VACCINE 2019-2020 0.5 ML DISP.SYRIN IM ONE (11:30)
[2019-07-09] MEDS: INSULIN REGULAR, HUMAN 300 UNIT/3 ML VIAL SQ PRN (11:49)
== END 2019-07-09 12:45 | disposition home or self-care (01) | DRG 291 ==
LOC: ER 11:53 → TELE3 13:55
PROVIDERS: ADMIT Internal Medicine Nephrology; ATTEND Internal Medicine Nephrology
DX: I13.0 Hypertensive heart and chronic kidney disease with heart failure and stage 1 through stage 4 chronic kidney disease, or unspecified chronic kidney disease (principal); I50.33 Acute on chronic diastolic (congestive) heart failure; Z94.0 Kidney transplant status; T86.12 Kidney transplant failure; E11.22 Type 2 diabetes mellitus with diabetic chronic kidney disease; N18.9 Chronic kidney disease, unspecified; Z79.4 Long term (current) use of insulin; Z87.891 Personal history of nicotine dependence; Z86.73 Personal history of transient ischemic attack (TIA), and cerebral infarction without residual deficits; Z79.899 Other long term (current) drug therapy; Z79.52 Long term (current) use of systemic steroids; E78.5 Hyperlipidemia, unspecified
CPT/HCPCS: 36415; 70030-TC; 71045; 71046; 83605; 83735; 84100; 85025; 87040; 90686; 93005; 93307; A4663; G0378; J1815; J1940; J2650; J3490; J7050; J7060; J7512; J7515; J7517

== ENCOUNTER 2019-09-26 12:27 | Inpatient (IN) | payer MEDICARE, OTHER ==
[~2019-09-26] VITALS: Ht 162.6 cm; Wt 81.6 kg
[~2019-09-26 12:27] MED LIST changes: +ASPI-605 PO; +BROM3DRO LEFTEYE; -CYCL25CA13 PO; -DONE10TA11 PO; +INSU100V10 SQ; -METO50TA7 PO; -NIFE30TA2 PO; +NIFE60TA2 PO; +PRED5DRO16 LEFTEYE; -SULF1TAB47 PO; -TAMS-3 PO
--- NOTE | 2019-09-26 12:50 | NUR ---
Patient BIB RA100 from home for c/o hypoglycemia. On the field patient B/S was reported 41, EMS administered D10 and B/S upon recheck ADVANCED CLINICAL SPECIALIST was 141. Respiratory even and unlabored no cough no sob. Patient A/Ox3. Speech is clear, speaks in complete sentences. No acute neuro deficits noted.
[2019-09-26] MEDS ORDERED: IV NORMAL SALINE 500 ML BAG IV ONE (13:15)
[2019-09-26 13:29] LABS: BASOPHILS # (AUTO) 0.1 K/uL (0.0-8.0); BASOPHILS % (AUTO) 0.8 % (0.0-2.0); EOSINOPHILS # (AUTO) 0.1 K/uL (0.0-0.7); EOSINOPHILS % (AUTO) 0.6 % (0.0-7.0); HEMATOCRIT 39.4 % (36.7-47.1); HEMOGLOBIN 12.3 g/dL (12.5-16.3); LYMPHOCYTES # (AUTO) 1.1 K/uL (20.0-40.0); LYMPHOCYTES % (AUTO) 13.3 % (20.5-51.5); MEAN CORPUSCULAR HEMOGLOBIN 27.3 uug (23.8-33.4); MEAN CORPUSCULAR HGB CONC 31 g/dL (32.5-36.3); MEAN CORPUSCULAR VOLUME 87.2 fL (73.0-96.2); MONOCYTES # (AUTO) 0.6 K/uL (2.0-10.0); MONOCYTES % (AUTO) 7.6 % (0.0-11.0); NEUTROPHILS # (AUTO) 6.4 K/uL (1.8-8.9); NEUTROPHILS % (AUTO) 77.7 % (38.5-71.5); PLATELET COUNT (AUTO) 231 K/uL (152-348); RED BLOOD CELL COUNT(AUTO) 4.52 MIL/uL (4.06-5.63); WHITE BLOOD COUNT (AUTO) 8.3 K/uL (3.6-10.2)
[2019-09-26 13:34] LABS: CARBON DIOXIDE 22 mmol/L (21-32); CHLORIDE 106 mmol/L (98-107); CREATININE 2.3 mg/dL (0.6-1.3); GLUCOSE 92 mg/dL (74-106); POTASSIUM 6.1 mmol/L (3.5-5.1); UREA NITROGEN, BLOOD 43 mg/dL (7-18)
[2019-09-26 13:40] LABS: ALANINE AMINOTRANSFERASE 14 U/L (16-63); ALKALINE PHOSPHATASE 104 U/L (50-136); ASPARTATE AMINOTRANSFERASE 9 U/L (15-37); BILIRUBIN,DIRECT 0.1 mg/dL (0.0-0.2); BILIRUBIN,TOTAL 0.4 mg/dL (0.2-1.0); TOTAL PROTEIN, SERUM 7.5 g/dL (6.4-8.2)
[2019-09-26] MEDS ORDERED: FUROSEMIDE 20 MG/2 ML VIAL ONE (13:55)
[2019-09-26] MEDS ORDERED: SODIUM POLYSTYRENE SULF POWDER 15 GM UDC ONE (13:55)
[2019-09-26] MEDS ORDERED: LOVA20TA2 PO (13:57)
[2019-09-26] MEDS ORDERED: FUROSEMIDE 20 MG/2 ML VIAL IV ONE (14:00)
[2019-09-26] MEDS ORDERED: SODIUM POLYSTYRENE SULFONATE 15 G/60 ML LIQUID UDC PO ONE (14:00)
[2019-09-26 14:47] LABS: *BILIRUBIN,URIN NEGATIVE (NEGATIVE); *CLARITY,URINE CLEAR (CLEAR); *COLOR,URINE YELLOW (YELLOW); *KETONES,URINE NEGATIVE (NEGATIVE); *UROBILINOGEN,URINE 0.2 E.U./dl (NORMAL); LEUKOCYTE ESTERASE ,URINE NEGATIVE (NEGATIVE); NITRITE, URINE NEGATIVE (NEGATIVE); PH,URINE 5.5 (5.0-8.0); UGLUCOSE NEGATIVE (NEGATIVE)
[2019-09-26 14:49] LABS: *BLOOD, URINE TRACE (NEGATIVE)
[2019-09-26 14:53] LABS: BACTERIA,URINE NONE SEEN /HPF (NONE SEEN); RBC,URINE 0-3 /HPF (0-3); SQUAMOUS EPITHELIAL CELL,UR FEW /HPF (NONE SEEN); WBC,URINE 0-3 /HPF (0-3)
[2019-09-26 14:54] LABS: MUCUS,URINE FEW /LPF (0-FEW)
[2019-09-26] MEDS ORDERED: ASPIRIN 81 MG TAB.CHEW PO ONE (15:00)
--- NOTE | 2019-09-26 15:09 | NUR ---
Report given to JESSENIA Gunn
[2019-09-26 16:13] VITALS: BP 186/83
--- NOTE | 2019-09-26 16:16 | NUR ---
Patient transported to TELE in stable condition.
[2019-09-26] MEDS ORDERED: ASPIRIN 81 MG TAB.CHEW ONE (16:17)
[2019-09-26] MEDS ORDERED: HOME MED MISCELLANEOUS XX SCH ×2 (18:45→21:00)
--- NOTE | 2019-09-26 19:00 | NUR ---
PATIENT ALERT ORIENTED, IN THE ROOM RESTING NO SOB NO CHEST PAIN, TELE MONITOR SINUS RHYTHM NO S/S OF HYPOGLYCEMIA NOTED. CONT TO MONITOR.
[2019-09-26] MEDS ORDERED: DEXTROSE 50% 50 ML DISP.SYRIN IV PRN (19:15)
[2019-09-26] MEDS ORDERED: INSULIN REGULAR, HUMAN 300 UNIT/3 ML VIAL SQ PRN (19:15)
[2019-09-26 20:29] VITALS: BP 175/84
--- NOTE | 2019-09-26 20:54 | NUR ---
PATIENT ALERT ORIENTED, NO SOB NO CHEST PAIN, BS 229 REFUSED INSULIN COVERAGE, STATED HE WILL TAKE HIS INSULIN AT HOME. PATIENT WANTS TO GO HOME, CALLED DR. ETHAN Bojorquez AND LEFT MESSAGE TO EXCHANGE. PATIENT STATED HE WILL BE RN HOSPICE BY HIS , IV LINE WAS REMOVED.
[2019-09-26] MEDS ORDERED: BLOOD SUGAR DIAGNOSTIC 1 EACH STRIP VI SCH (21:00)
[2019-09-26] MEDS ORDERED: prednisoLONE ACET 1% OPHT DROP 5 ML BOTTLE LEFTEYE SCH (21:00)
[2019-09-26] MEDS ORDERED: MYCOPHENOLATE MOFETIL 250 MG CAPSULE PO SCH (21:00)
--- NOTE | 2019-09-26 22:55 | NUR ---
PATIENT WENT AMA, ELECTRIC BLASTING CAP ASSEMBLER BY VIA PRIVATE CAR.
[2019-09-27] MEDS ORDERED: [UNRECOGNIZED DRUG - OTHER] SQ SCH (09:00)
[2019-09-27] MEDS ORDERED: LOVASTATIN 60 MG PO SCH (09:00)
[2019-09-27] MEDS ORDERED: predniSONE 5 MG TABLET PO SCH (09:00)
[2019-09-27] MEDS ORDERED: CITALOPRAM 20 MG TABLET PO SCH (09:00)
[2019-09-27] MEDS ORDERED: FAMOTIDINE 20 MG TABLET PO SCH (09:00)
[2019-09-27] MEDS ORDERED: ASPIRIN EC 81 MG TABLET.DR PO SCH (09:00)
[2019-09-27] MEDS ORDERED: BROMFENAC LEFTEYE SCH (09:00)
== END 2019-09-26 21:00 | disposition left against medical advice (07) | DRG 637 ==
LOC: ER 12:29 → TELE3 15:54
PROVIDERS: ADMIT Internal Medicine; ATTEND Internal Medicine Nephrology
DX: E11.649 Type 2 diabetes mellitus with hypoglycemia without coma (principal); G93.41 Metabolic encephalopathy; T86.12 Kidney transplant failure; Z79.4 Long term (current) use of insulin; E11.22 Type 2 diabetes mellitus with diabetic chronic kidney disease; E87.5 Hyperkalemia; Z79.899 Other long term (current) drug therapy; I67.2 Cerebral atherosclerosis; Z87.891 Personal history of nicotine dependence; Z86.73 Personal history of transient ischemic attack (TIA), and cerebral infarction without residual deficits
CPT/HCPCS: 36415; 70030-TC; 70450; 71045; 85025; 85730; 93005; A4663; G0378; J1815; J1940; J2650; J7040; J7515; J7517

== ENCOUNTER 2019-10-08 17:09 | Inpatient (IN) | payer MEDICARE, OTHER ==
[~2019-10-08] VITALS: Ht 165.1 cm; Wt 79.4 kg
[~2019-10-08 17:09] MED LIST changes: -EZET1TAB27 PO; -HYDR-3326 PO; -INSU100V10 SQ; -INSU100V11 SQ; +LOVA20TA2 PO; -NIFE60TA2 PO
[2019-10-08] MEDS ORDERED: MORPHINE SULFATE 2 MG/1 ML DISP.SYRIN IV ONE (18:15)
[2019-10-08] MEDS ORDERED: PANTOPRAZOLE SODIUM 40 MG VIAL IV ONE (18:15)
[2019-10-08] MEDS ORDERED: ONDANSETRON 4 MG/2 ML VIAL IV ONE (18:15)
[2019-10-08] MEDS ORDERED: ONDANSETRON 4 MG/2 ML VIAL ONE (18:33)
[2019-10-08] MEDS ORDERED: MORPHINE SULFATE 2 MG/1 ML DISP.SYRIN ONE (18:34)
[2019-10-08] MEDS ORDERED: PANTOPRAZOLE SODIUM 40 MG VIAL ONE (18:34)
[2019-10-08 18:35] LABS: BASOPHILS # (AUTO) 0.1 K/uL (0.0-8.0); BASOPHILS % (AUTO) 1.3 % (0.0-2.0); EOSINOPHILS # (AUTO) 0.2 K/uL (0.0-0.7); EOSINOPHILS % (AUTO) 3.1 % (0.0-7.0); HEMATOCRIT 35.8 % (36.7-47.1); HEMOGLOBIN 11.6 g/dL (12.5-16.3); LYMPHOCYTES # (AUTO) 1.8 K/uL (20.0-40.0); LYMPHOCYTES % (AUTO) 24.7 % (20.5-51.5); MEAN CORPUSCULAR HEMOGLOBIN 28.1 uug (23.8-33.4); MEAN CORPUSCULAR HGB CONC 33 g/dL (32.5-36.3); MEAN CORPUSCULAR VOLUME 86.5 fL (73.0-96.2); MONOCYTES # (AUTO) 0.6 K/uL (2.0-10.0); MONOCYTES % (AUTO) 7.7 % (0.0-11.0); NEUTROPHILS # (AUTO) 4.7 K/uL (1.8-8.9); NEUTROPHILS % (AUTO) 63.2 % (38.5-71.5); PLATELET COUNT (AUTO) 190 K/uL (152-348); RED BLOOD CELL COUNT(AUTO) 4.14 MIL/uL (4.06-5.63); WHITE BLOOD COUNT (AUTO) 7.4 K/uL (3.6-10.2)
[2019-10-08 18:48] LABS: CARBON DIOXIDE 24 mmol/L (21-32); CHLORIDE 105 mmol/L (98-107); CREATININE 2.5 mg/dL (0.6-1.3); GLUCOSE 196 mg/dL (74-106); UREA NITROGEN, BLOOD 54 mg/dL (7-18)
[2019-10-08 18:51] LABS: POTASSIUM 6.2 mmol/L (3.5-5.1)
--- NOTE | 2019-10-08 18:52 | NUR ---
PT IS IN ROOM #1A. DR JUSTICE EVALUATED THE PT.
[2019-10-08 18:54] LABS: ALANINE AMINOTRANSFERASE 18 U/L (16-63); ALKALINE PHOSPHATASE 107 U/L (50-136); ASPARTATE AMINOTRANSFERASE 14 U/L (15-37); BILIRUBIN,DIRECT 0.1 mg/dL (0.0-0.2); BILIRUBIN,TOTAL 0.4 mg/dL (0.2-1.0); LIPASE 207 U/L (73-393)
[2019-10-08] MEDS ORDERED: FUROSEMIDE 40 MG/4 ML VIAL IV ONE ×2 (19:00→19:15)
[2019-10-08] MEDS ORDERED: SODIUM POLYSTYRENE SULFONATE 15 G/60 ML LIQUID UDC PO ONE (19:00)
[2019-10-08] MEDS ORDERED: FUROSEMIDE 40 MG/4 ML VIAL ONE (19:12)
[2019-10-08] MEDS ORDERED: SODIUM POLYSTYRENE SULFONATE 15 G/60 ML LIQUID UDC ONE (19:14)
--- NOTE | 2019-10-08 19:14 | NUR ---
PT TRANSPORTED TO CT BY MEDICAL PRACTICE ADMINISTRATOR VIA [facility]
[2019-10-08 20:44] LABS: *BILIRUBIN,URIN NEGATIVE (NEGATIVE); *BLOOD, URINE NEGATIVE (NEGATIVE); *CLARITY,URINE CLEAR (CLEAR); *COLOR,URINE YELLOW (YELLOW); *KETONES,URINE NEGATIVE (NEGATIVE); *UROBILINOGEN,URINE 0.2 E.U./dl (NORMAL); LEUKOCYTE ESTERASE ,URINE NEGATIVE (NEGATIVE); NITRITE, URINE NEGATIVE (NEGATIVE); UGLUCOSE NEGATIVE (NEGATIVE)
--- NOTE | 2019-10-08 21:29 | NUR ---
HAND OFF AND SBAR GIVEN TO SOCO RN PT TO ADMIT TO TELE RM 312 DX: CHF/RENAL FAILURE/HYPERKALEMIA UNDER : DR LONG ORDERS GIVEN
--- NOTE | 2019-10-08 21:38 | NUR ---
TRANSPORTED BY DANIELA VIA [facility]
[2019-10-08] MEDS ORDERED: DEXTROSE 50% 50 ML DISP.SYRIN IV PRN ×2 (21:45→22:00)
[2019-10-08 21:55] VITALS: BP 175/75
[2019-10-08] MEDS ORDERED: INSULIN REGULAR, HUMAN 300 UNIT/3 ML VIAL SQ PRN (22:00)
[2019-10-08] MEDS ORDERED: BLOOD SUGAR DIAGNOSTIC 1 EACH STRIP VI SCH (22:00)
[2019-10-08] MEDS: INSULIN REGULAR, HUMAN 300 UNIT/3 ML VIAL SQ PRN (22:17)
[2019-10-08] MEDS: BLOOD SUGAR DIAGNOSTIC 1 EACH STRIP VI SCH (22:22)
[2019-10-08] MEDS ORDERED: NITROGLYCERIN OINT 1 GM PACKET TP PRN (22:30)
[2019-10-08] MEDS ORDERED: ACETAMINOPHEN 325 MG TABLET PO PRN (22:30)
[2019-10-08] MEDS ORDERED: ONDANSETRON 4 MG/2 ML VIAL IV PRN (22:30)
[2019-10-08] MEDS ORDERED: TEMAZEPAM 7.5 MG CAPSULE PO PRN (22:30)
[2019-10-08] MEDS: MYCOPHENOLATE MOFETIL 250 MG CAPSULE PO SCH (23:38)
[2019-10-08] MEDS: TRAZODONE 50 MG TABLET PO SCH (23:59)
[2019-10-09 00:44] VITALS: BP 173/76
[2019-10-09 04:56] VITALS: BP 145/77
[2019-10-09] MEDS ORDERED: HOME MED MISCELLANEOUS XX SCH ×2 (07:00)
[2019-10-09] MEDS ORDERED: MISCELLANEOUS MED XX PRN (07:00)
--- NOTE | 2019-10-09 07:16 | NUR ---
ADMITTED TO ROOM 312 VIA GURNEY; PT AAOX4 AMBULATORY; NO ACUTE DISTRESS; BP ELEVATED AND REFERRED TO DR LONG WITH ORDERS FOR PRNS AND NITROPASTE; SBP BETTER AT 140s BUT C/O HEADACHE; NITROPASTE REMOVED AND TYLENOL GIVEN; CONTINUE TO MONITOR; CONTINUE PLAN OF CARE.
[2019-10-09] MEDS: BLOOD SUGAR DIAGNOSTIC 1 EACH STRIP VI SCH ×4 (07:19→21:11)
--- NOTE | 2019-10-09 07:37 | NUR ---
RECEIVED PATIENT AWAKE ALERT AND ORIENTED AMBULATORY SEEN IN THE HALLWAY WALKING BY SELF WITH SLOW STEADY GAIT ON ROOM AIR AT THIS TIME WITH NO SHORTNESS OF BREATH. CALL LIGHTS AND PERSONAL BELONGINGS PLACED WITHIN EASY REACH WILL CONTINUE TO OBSERVE.
[2019-10-09] MEDS: INSULIN REGULAR, HUMAN 300 UNIT/3 ML VIAL SQ PRN ×4 (08:07→21:13)
[2019-10-09] MEDS: CITALOPRAM 20 MG TABLET PO SCH (08:09)
[2019-10-09] MEDS: ASPIRIN EC 81 MG TABLET.DR PO SCH (08:09)
[2019-10-09] MEDS: prednisoLONE ACET 1% OPHT DROP 5 ML BOTTLE LEFTEYE SCH ×4 (08:09→21:14)
[2019-10-09] MEDS: predniSONE 5 MG TABLET PO SCH (08:09)
[2019-10-09] MEDS: MYCOPHENOLATE MOFETIL 250 MG CAPSULE PO SCH ×2 (08:10→21:14)
[2019-10-09] MEDS ORDERED: MYCOPHENOLATE MOFETIL 250 MG CAPSULE PO SCH (09:00)
[2019-10-09] MEDS: PROLENSA EYE LEFTEYE SCH (09:25)
--- NOTE | 2019-10-09 11:29 | NUR ---
DR LONG HERE TO SEE PATIENT AWARE OF BLOOD PRESSURE BEING ELEVATED AT 167/80 WITH NEW ORDERS AND NOTED
[2019-10-09] MEDS: NIFEdipine XL 60 MG TABSR PO SCH (11:42)
[2019-10-09 12:08] VITALS: BP 167/80
[2019-10-09 12:31] LABS: BASOPHILS # (AUTO) 0.1 K/uL (0.0-8.0); BASOPHILS % (AUTO) 0.8 % (0.0-2.0); EOSINOPHILS # (AUTO) 0.2 K/uL (0.0-0.7); EOSINOPHILS % (AUTO) 2.2 % (0.0-7.0); HEMATOCRIT 33.5 % (36.7-47.1); HEMOGLOBIN 10.9 g/dL (12.5-16.3); LYMPHOCYTES # (AUTO) 1.1 K/uL (20.0-40.0); MEAN CORPUSCULAR HEMOGLOBIN 28.4 uug (23.8-33.4); MEAN CORPUSCULAR HGB CONC 33 g/dL (32.5-36.3); MONOCYTES # (AUTO) 0.4 K/uL (2.0-10.0); MONOCYTES % (AUTO) 5.9 % (0.0-11.0); NEUTROPHILS # (AUTO) 5.3 K/uL (1.8-8.9); NEUTROPHILS % (AUTO) 76.1 % (38.5-71.5); PLATELET COUNT (AUTO) 173 K/uL (152-348); RED BLOOD CELL COUNT(AUTO) 3.85 MIL/uL (4.06-5.63)
--- NOTE | 2019-10-09 12:56 | NUR ---
RESTING EATING LUNCH DENIES PAIN OR DISCOMFORTS NO S/S OF HYPERGLYCEMIC REACTIONS AT THIS TIME.
[2019-10-09 13:31] LABS: CARBON DIOXIDE 23 mmol/L (21-32); CHLORIDE 98 mmol/L (98-107); CREATININE 2.4 mg/dL (0.6-1.3); MAGNESIUM 1.4 mg/dL (1.8-2.4); PHOSPHOROUS 5.6 mg/dL (2.5-4.9); POTASSIUM 5.2 mmol/L (3.5-5.1); UREA NITROGEN, BLOOD 53 mg/dL (7-18)
[2019-10-09 13:35] LABS: GLUCOSE 331 mg/dL (74-106)
[2019-10-09 15:50] VITALS: BP 133/69
--- NOTE | 2019-10-09 16:22 | NUR ---
CALLED AND NOTIFIED DR LONG RE MAG LEVEL IS 1.4 WITH NEW ORDERS AND NOTED
[2019-10-09] MEDS ORDERED: MAGNESIUM SULFATE 2 GM in IV DEXTROSE 5% 100 ML IV ONE (16:30)
[2019-10-09] MEDS: MAGNESIUM SULFATE/D5W 100 ML IV SCH ×2 (16:48→18:13)
--- NOTE | 2019-10-09 17:47 | NUR ---
RESTING EATING DINNER INSULIN PER SLIDING SCALE NO S/S OF HYPERGLYCEMIC REACTIONS AT THIS TIME WILL CONTINUE TO OBSERVE.
[2019-10-09 20:00] VITALS: BP 128/62
--- NOTE | 2019-10-09 20:00 | NUR ---
RECEIVED PATIENT AWAKE IN BED. A/O X4. DENIES PAIN OR DISCOMFORT. NO RESP. DISTRESS NOTED. H/L INTACT AND PATENT. VS WNL. ON TELE SR. CALL LIGHT IN REACH. ALL NEEDS ATTENDED. WILL CONTINUE TO MONITOR AND ASSESS.
[2019-10-09] MEDS: TRAZODONE 50 MG TABLET PO SCH (21:13)
[2019-10-09] MEDS: ATORVASTATIN 10 MG TABLET PO SCH (21:13)
[2019-10-10] VITALS: BP 134/67
[2019-10-10 04:00] VITALS: BP 140/65
--- NOTE | 2019-10-10 05:44 | NUR ---
PATIENT ASLEEP IN BED. SLEPT AT SMALL INTERVALS. VSS. DENIES PAIN OR DISCOMFORT. NO RESP. DISTRESS NOTED. ON TELE SR. CALL LIGHT IN REACH. ALL NEEDS ATTENDED. WILL CONTINUE TO MONITOR AND ASSESS.
[2019-10-10] MEDS: PANTOPRAZOLE SODIUM 40 MG TABLET.DR PO SCH (06:08)
[2019-10-10] MEDS: BLOOD SUGAR DIAGNOSTIC 1 EACH STRIP VI SCH ×4 (06:30→21:03)
--- NOTE | 2019-10-10 07:34 | NUR ---
RECEIVED PATIENT IN BED AWAKE ALERT AND ORIENTED HE IS ON ROOM AIR WITH NO SHORTNESS OF BREATH DENIES PAIN OR DISCOMFORTS AT THIS TIME CALL LIGHTS AND PERSONAL BELONGINGS ARE WITHIN EASY REACH MADE COMFORTABLE AND WILL CONTINUE TO OBSERVE.
[2019-10-10] MEDS: ASPIRIN EC 81 MG TABLET.DR PO SCH (08:38)
[2019-10-10] MEDS: CITALOPRAM 20 MG TABLET PO SCH (08:38)
[2019-10-10] MEDS: predniSONE 5 MG TABLET PO SCH (08:38)
[2019-10-10] MEDS: MYCOPHENOLATE MOFETIL 250 MG CAPSULE PO SCH ×2 (08:39→20:43)
[2019-10-10] MEDS: NIFEdipine XL 60 MG TABSR PO SCH (08:39)
[2019-10-10] MEDS: PROLENSA EYE LEFTEYE SCH (08:41)
[2019-10-10] MEDS: prednisoLONE ACET 1% OPHT DROP 5 ML BOTTLE LEFTEYE SCH ×4 (08:41→21:00)
--- NOTE | 2019-10-10 09:54 | NUR ---
PATIENT SEEN AND EXAMINED BY DR GRADY WITH ORDER TO DISCHARGE PATIENT HOME TODAY PATIENT AWARE AND STATED WILL LEAVE AFTER LUNCH. Addendum: 10/10/19 at 1254 by JULIA ZHU RN ERROR IN CHARTING WRONG PATIENT
[2019-10-10 11:32] VITALS: BP 126/74
[2019-10-10 12:03] LABS: BASOPHILS % (AUTO) 0.7 % (0.0-2.0); EOSINOPHILS # (AUTO) 0.1 K/uL (0.0-0.7); HEMATOCRIT 33.7 % (36.7-47.1); HEMOGLOBIN 10.8 g/dL (12.5-16.3); LYMPHOCYTES % (AUTO) 16.7 % (20.5-51.5); MEAN CORPUSCULAR HEMOGLOBIN 27.7 uug (23.8-33.4); MEAN CORPUSCULAR HGB CONC 32 g/dL (32.5-36.3); MEAN CORPUSCULAR VOLUME 86.7 fL (73.0-96.2); MONOCYTES # (AUTO) 0.4 K/uL (2.0-10.0); MONOCYTES % (AUTO) 5.8 % (0.0-11.0); NEUTROPHILS # (AUTO) 4.5 K/uL (1.8-8.9); NEUTROPHILS % (AUTO) 74.8 % (38.5-71.5); PLATELET COUNT (AUTO) 165 K/uL (152-348); RED BLOOD CELL COUNT(AUTO) 3.88 MIL/uL (4.06-5.63)
[2019-10-10] MEDS: INSULIN REGULAR, HUMAN 300 UNIT/3 ML VIAL SQ PRN ×2 (12:06→16:15)
[2019-10-10 12:14] LABS: CARBON DIOXIDE 23 mmol/L (21-32); CHLORIDE 100 mmol/L (98-107); CREATININE 2.3 mg/dL (0.6-1.3); MAGNESIUM 1.8 mg/dL (1.8-2.4); PHOSPHOROUS 5.8 mg/dL (2.5-4.9); UREA NITROGEN, BLOOD 55 mg/dL (7-18)
--- NOTE | 2019-10-10 12:55 | NUR ---
LAB CALLED TO COME AND DRAW BLOOD ON THIS PATIENT BECAUSE HE HAD REFUSED EARLIER SO LABS DONE NOW AWAITING FOR RESULTS.
[2019-10-10 12:58] LABS: GLUCOSE 306 mg/dL (74-106)
[2019-10-10] MEDS ORDERED: ZOLPIDEM 5 MG TABLET PO PRN (13:15)
[2019-10-10] MEDS ORDERED: FUROSEMIDE 20 MG/2 ML VIAL IV SCH ×2 (13:15→17:00)
--- NOTE | 2019-10-10 13:45 | NUR ---
DR JIMENEZ HERE TO SEE PATIENT WITH NEW ORDERS AND NOTED.
--- NOTE | 2019-10-10 15:00 | NUR ---
DR POLLARD HERE AND SEEN PATIENT WITH NEW ORDERS AND NOTED.
[2019-10-10 15:39] VITALS: BP 136/70
--- NOTE | 2019-10-10 18:00 | NUR ---
PATIENT IS WALKING AROUND IN THE HALLWAY WITH NO SOB AT THIS TIME WILL CONTINUE TO OBSERVE.
--- NOTE | 2019-10-10 19:00 | NUR ---
PATIENT ALERT ORIENTED, NO SOB NO CHEST PAIN. PATIENT ON TELE MONITOR. SINUS RHYTHM AT THIS TIME. PATIENT ON ROOM AIR TOLERATE WELL, PATIENT AMBULATE IN HALLWAYS, CONT TO MONITOR.
[2019-10-10 20:00] VITALS: BP 157/75
[2019-10-10] MEDS: FUROSEMIDE 40 MG/4 ML VIAL IVP SCH (20:42)
[2019-10-10] MEDS: TRAZODONE 50 MG TABLET PO SCH (20:44)
[2019-10-10] MEDS: ATORVASTATIN 10 MG TABLET PO SCH (20:44)
[2019-10-10] MEDS ORDERED: INSULIN GLARGINE,HUM 300 UNITS/3 ML CARTRIDGE SQ SCH (21:00)
--- NOTE | 2019-10-10 21:04 | NUR ---
PATIENT REFUSED PRED FORTE EYE DROP AND REGULAR INSULIN SLIDING SCALE.
[2019-10-11] VITALS: BP 140/65
[2019-10-11 05:00] VITALS: BP 153/74
[2019-10-11] MEDS: PANTOPRAZOLE SODIUM 40 MG TABLET.DR PO SCH (06:15)
[2019-10-11] MEDS: BLOOD SUGAR DIAGNOSTIC 1 EACH STRIP VI SCH ×4 (06:32→16:36)
--- NOTE | 2019-10-11 06:45 | NUR ---
PATIENT SLEPT APROX 4 TP 5 HRS, PATIENT GIVEN SNACK BEFORE GOING TO SLEEP, BLOOD SUGAR 58, GIVEN OJ, PATIENT ASYMPTOMATIC, NO HEADACHES, NO SWEATING, NOT IN COLD CLAMMY SKIN, CONT TO MONITOR.
[2019-10-11 07:14] LABS: BASOPHILS % (AUTO) 0.9 % (0.0-2.0); EOSINOPHILS # (AUTO) 0.2 K/uL (0.0-0.7); EOSINOPHILS % (AUTO) 3.2 % (0.0-7.0); HEMATOCRIT 34.1 % (36.7-47.1); HEMOGLOBIN 11.1 g/dL (12.5-16.3); LYMPHOCYTES # (AUTO) 1.5 K/uL (20.0-40.0); LYMPHOCYTES % (AUTO) 30.6 % (20.5-51.5); MEAN CORPUSCULAR HGB CONC 32 g/dL (32.5-36.3); MEAN CORPUSCULAR VOLUME 83.4 fL (73.0-96.2); MONOCYTES # (AUTO) 0.5 K/uL (2.0-10.0); NEUTROPHILS # (AUTO) 2.7 K/uL (1.8-8.9); NEUTROPHILS % (AUTO) 55.3 % (38.5-71.5); PLATELET COUNT (AUTO) 188 K/uL (152-348); RED BLOOD CELL COUNT(AUTO) 4.09 MIL/uL (4.06-5.63); WHITE BLOOD COUNT (AUTO) 4.9 K/uL (3.6-10.2)
[2019-10-11 07:33] LABS: ALANINE AMINOTRANSFERASE 13 U/L (16-63); ALKALINE PHOSPHATASE 89 U/L (50-136); ASPARTATE AMINOTRANSFERASE 7 U/L (15-37); BILIRUBIN,TOTAL 0.4 mg/dL (0.2-1.0); CARBON DIOXIDE 25 mmol/L (21-32); CHLORIDE 105 mmol/L (98-107); CREATININE 2.2 mg/dL (0.6-1.3); GLUCOSE 62 mg/dL (74-106); MAGNESIUM 1.7 mg/dL (1.8-2.4); POTASSIUM 3.7 mmol/L (3.5-5.1); TOTAL PROTEIN, SERUM 6.8 g/dL (6.4-8.2); UREA NITROGEN, BLOOD 56 mg/dL (7-18)
--- NOTE | 2019-10-11 08:00 | NUR ---
RECEIVED PATIENT IN BED AWAKE ALERT AND ORIENTED. PT IS ON ROOM AIR WITH SATS OF 95%. NO SHORTNESS OF BREATH OR ACUTE DISTRESS NOTED. DENIES PAIN OR DISCOMFORT AT THIS TIME. CALL LIGHT AND PERSONAL BELONGINGS ARE WITHIN EASY REACH. PT COMFORTABLE. PT ON TELEMETRY MONITORING WITH SINUS RHYTHM. WILL CONTINUE TO MONITOR FOR SAFETY AND COMFORT.
[2019-10-11] MEDS: PROLENSA EYE LEFTEYE SCH (08:53)
[2019-10-11] MEDS: prednisoLONE ACET 1% OPHT DROP 5 ML BOTTLE LEFTEYE SCH ×3 (08:53→17:19)
[2019-10-11] MEDS: CITALOPRAM 20 MG TABLET PO SCH (08:57)
[2019-10-11] MEDS: ASPIRIN EC 81 MG TABLET.DR PO SCH (08:57)
[2019-10-11] MEDS: MYCOPHENOLATE MOFETIL 250 MG CAPSULE PO SCH (08:57)
[2019-10-11] MEDS: predniSONE 5 MG TABLET PO SCH (08:57)
[2019-10-11] MEDS: NIFEdipine XL 60 MG TABSR PO SCH (08:59)
[2019-10-11] MEDS: FUROSEMIDE 40 MG/4 ML VIAL IVP SCH (08:59)
[2019-10-11 11:46] VITALS: BP 151/73
[2019-10-11] MEDS ORDERED: MAGNESIUM SULFATE/D5W 100 ML IV SCH (12:00)
[2019-10-11] MEDS ORDERED: POTASSIUM CHLORIDE 20 MEQ POWDER PACKET GT ONE (12:00)
[2019-10-11] MEDS: INSULIN REGULAR, HUMAN 300 UNIT/3 ML VIAL SQ PRN ×2 (12:17→16:40)
[2019-10-11 15:32] VITALS: BP 134/63
[2019-10-11] MEDS ORDERED: NIFE60TA2 PO (17:08)
[2019-10-11] MEDS ORDERED: POTA10CA43 PO (17:08)
[2019-10-11] MEDS ORDERED: Insulin Glargine,Hum SQ (17:08)
[2019-10-11] MEDS ORDERED: FURO-151 PO (17:08)
--- NOTE | 2019-10-11 18:07 | NUR ---
PT'S BG POC WAS 377. 10 UNITS OF INSULIN GIVEN PER SLIDING SCALE. DR ZIMMERMAN AWARE. ORDER FOR DISCHARGE GIVEN. AT THIS TIME AWAITING FINALIZATION OF MEDS PER DR ZIMMERMAN. PT ALERT AND ORIENTED X4. PT PLEASANT AND COOPERATIVE. NO ACUTE DISTRESS OR SOB NOTED. WILL GIVE REPORT ACCORDINGLY.
--- NOTE | 2019-10-11 19:36 | NUR ---
1899 received patient alert oriented, no sob no chest pain, patient ready for discharge. 1935 Dr Babcock discharge the patient, given all discharge papers, and patient eye gtss, took out the tele monitor and iv heplock, patient drive himself to go home, patient accompanied by gunner's mate m to his car. took all belongings.
== END 2019-10-11 19:36 | disposition home or self-care (01) | DRG 291 ==
LOC: ER 17:19 → TELE3 20:55
PROVIDERS: ADMIT Internal Medicine Nephrology; ATTEND Internal Medicine Nephrology
DX: I13.2 Hypertensive heart and chronic kidney disease with heart failure and with stage 5 chronic kidney disease, or end stage renal disease (principal); I50.33 Acute on chronic diastolic (congestive) heart failure; N17.0 Acute kidney failure with tubular necrosis; T86.12 Kidney transplant failure; E11.22 Type 2 diabetes mellitus with diabetic chronic kidney disease; N18.9 Chronic kidney disease, unspecified; I50.9 Heart failure, unspecified; Z79.4 Long term (current) use of insulin; E87.5 Hyperkalemia; M89.8X9 Other specified disorders of bone, unspecified site; Z86.73 Personal history of transient ischemic attack (TIA), and cerebral infarction without residual deficits; K21.9 Gastro-esophageal reflux disease without esophagitis; Z79.899 Other long term (current) drug therapy; E11.649 Type 2 diabetes mellitus with hypoglycemia without coma
CPT/HCPCS: 36415; 70030-TC; 71045; 83690; 83735; 84100; 85025; 85730; 87086; 93005; A4663; C9113; G0378; J1815; J1940; J2270; J2405; J2650; J3475; J7050; J7512; J7515; J7517

== ENCOUNTER 2020-03-10 00:09 | Inpatient (IN) | payer MEDICARE, OTHER ==
[2020-03-10] VITALS (7 sets, daily range): BP systolic 117–188; BP diastolic 48–84
[~2020-03-10] VITALS: Ht 162.6 cm; Wt 84.8 kg
[~2020-03-10 00:09] MED LIST changes: +FURO-151 PO; +Insulin Glargine,Hum SQ; +NIFE60TA2 PO; +POTA10CA43 PO
--- NOTE | 2020-03-10 00:24 | NUR ---
Dr. Bower at bedside for MSE.
[2020-03-10 00:39] LABS: BASOPHILS # (AUTO) 0.1 K/uL (0.0-8.0); BASOPHILS % (AUTO) 0.8 % (0.0-2.0); EOSINOPHILS % (AUTO) 0.4 % (0.0-7.0); HEMATOCRIT 37.2 % (36.7-47.1); LYMPHOCYTES # (AUTO) 0.8 K/uL (20.0-40.0); LYMPHOCYTES % (AUTO) 9.8 % (20.5-51.5); MEAN CORPUSCULAR HEMOGLOBIN 28.1 uug (23.8-33.4); MEAN CORPUSCULAR HGB CONC 32 g/dL (32.5-36.3); MEAN CORPUSCULAR VOLUME 86.9 fL (73.0-96.2); MONOCYTES # (AUTO) 0.6 K/uL (2.0-10.0); MONOCYTES % (AUTO) 7.4 % (0.0-11.0); NEUTROPHILS # (AUTO) 6.8 K/uL (1.8-8.9); NEUTROPHILS % (AUTO) 81.6 % (38.5-71.5); PLATELET COUNT (AUTO) 214 K/uL (152-348); RED BLOOD CELL COUNT(AUTO) 4.28 MIL/uL (4.06-5.63); WHITE BLOOD COUNT (AUTO) 8.3 K/uL (3.6-10.2)
--- NOTE | 2020-03-10 00:44 | NUR ---
Patient provided urine sample, sent to lab.
[2020-03-10] MEDS ORDERED: IV NORMAL SALINE 1000 ML BAG IV ONE ×2 (00:45→01:15)
--- NOTE | 2020-03-10 00:45 | NUR ---
Xray at bedside.
[2020-03-10 00:52] LABS: ALANINE AMINOTRANSFERASE 15 U/L (16-63); ALKALINE PHOSPHATASE 122 U/L (50-136); ASPARTATE AMINOTRANSFERASE 17 U/L (15-37); BILIRUBIN,DIRECT < 0.1 mg/dL (0.0-0.2); BILIRUBIN,TOTAL 0.4 mg/dL (0.2-1.0); CARBON DIOXIDE 21 mmol/L (21-32); CHLORIDE 95 mmol/L (98-107); CREATININE 2.9 mg/dL (0.6-1.3); POTASSIUM 5.8 mmol/L (3.5-5.1); TOTAL PROTEIN, SERUM 6.9 g/dL (6.4-8.2); UREA NITROGEN, BLOOD 57 mg/dL (7-18)
[2020-03-10 00:56] LABS: GLUCOSE 499 mg/dL (74-106)
[2020-03-10 01:02] LABS: *BILIRUBIN,URIN NEGATIVE (NEGATIVE); *BLOOD, URINE 1+ (NEGATIVE); *CLARITY,URINE CLEAR (CLEAR); *COLOR,URINE YELLOW (YELLOW); *KETONES,URINE NEGATIVE (NEGATIVE); *UROBILINOGEN,URINE 0.2 E.U./dl (NORMAL); LEUKOCYTE ESTERASE ,URINE NEGATIVE (NEGATIVE); NITRITE, URINE NEGATIVE (NEGATIVE); UGLUCOSE 1+ (NEGATIVE)
[2020-03-10 01:10] LABS: BACTERIA,URINE NONE SEEN /HPF (NONE SEEN); SQUAMOUS EPITHELIAL CELL,UR FEW /HPF (NONE SEEN); WBC,URINE 0-3 /HPF (0-3)
[2020-03-10] MEDS ORDERED: INSULIN REGULAR, HUMAN 300 UNIT/3 ML VIAL IV ONE (01:15)
[2020-03-10] MEDS ORDERED: INSULIN REGULAR, HUMAN 300 UNIT/3 ML VIAL ONE (01:27)
[2020-03-10 02:09] LABS: CARBON DIOXIDE 22 mmol/L (21-32); CHLORIDE 96 mmol/L (98-107); CREATININE 2.8 mg/dL (0.6-1.3); POTASSIUM 5.7 mmol/L (3.5-5.1); UREA NITROGEN, BLOOD 57 mg/dL (7-18)
[2020-03-10 02:13] LABS: GLUCOSE 453 mg/dL (74-106)
[2020-03-10] MEDS ORDERED: SODIUM POLYSTYRENE SULFONATE 15 G/60 ML LIQUID UDC PO ONE (02:15)
[2020-03-10] MEDS ORDERED: SODIUM POLYSTYRENE SULFONATE 15 G/60 ML LIQUID UDC ONE (02:22)
--- NOTE | 2020-03-10 02:27 | NUR ---
Called [facility] Nephrology to page Dr. Barba.
--- NOTE | 2020-03-10 02:29 | NUR ---
Dr. Bower speaking with Dr. Barba.
--- NOTE | 2020-03-10 02:35 | NUR ---
Patient accepted by Dr. Barba for admission to [facility], diagnosis: acute/chronic renal insufficiency.
--- NOTE | 2020-03-10 03:09 | NUR ---
Report given to Phyllis RUELAS Medsurg.
[2020-03-10 03:41] LABS: ABG BASE EXCESS -7.4 mmol/L; ABG HCO3 18.2 mmol/L; ABG PCO2 37.4 mmHg (35.0-45.0); ABG PH 7.306 (7.350-7.450); ABG PO2 92.6 mmHg (75.0-100.0); ABG SITE RIGHT RADIAL; ABG TOTAL HEMOGLOBIN 12.8 G/dL (13.5-18.0); COHb 0.8 % (0.5-1.5); MetHb 0.3 % (0.0-1.5); VENT MODE ROOM AIR
--- NOTE | 2020-03-10 04:14 | NUR ---
Pt arrived in the unit at 0315. No acute distress noted. No dizziness. Denies pain/ discomfort. Notified Dr. Barba of admission, MD will put in admission orders, and new order for Renal diet, Accucheck with regular insulin moderate sliding scale, and to continue home meds. Faxed home meds paper to the pharmacy. Pt is AAO x4. Ambulatory. Pt requested to put money in the safe, counted money in front of the patient with witness, paper signed, and gave copy to the pt. Pertinent assessment done. Safety measures maintained. Call light and personal items within reach. Will continue to monitor.
[2020-03-10] MEDS ORDERED: DEXTROSE 50% 50 ML DISP.SYRIN IV PRN ×2 (04:15→04:30)
[2020-03-10] MEDS ORDERED: INSULIN REGULAR, HUMAN 300 UNITS/3 ML VIAL SQ PRN ×2 (04:15→04:30)
[2020-03-10] MEDS ORDERED: INSULIN REGULAR, HUMAN 300 UNIT/3 ML VIAL SQ PRN (04:15)
[2020-03-10] MEDS ORDERED: HOME MED MISCELLANEOUS XX SCH ×2 (06:15)
[2020-03-10] MEDS: BLOOD SUGAR DIAGNOSTIC 1 EACH STRIP VI SCH ×4 (06:36→20:47)
[2020-03-10] MEDS ORDERED: BLOOD SUGAR DIAGNOSTIC 1 EACH STRIP VI SCH (07:30)
[2020-03-10] MEDS: ASPIRIN EC 81 MG TABLET.DR PO SCH (08:03)
[2020-03-10] MEDS: CITALOPRAM 20 MG TABLET PO SCH (08:03)
[2020-03-10] MEDS: predniSONE 5 MG TABLET PO SCH (08:03)
[2020-03-10] MEDS: MYCOPHENOLATE MOFETIL 250 MG CAPSULE PO SCH ×2 (08:04→20:38)
[2020-03-10] MEDS: INSULIN REGULAR, HUMAN 300 UNIT/3 ML VIAL SQ PRN ×3 (08:06→20:42)
[2020-03-10] MEDS ORDERED: prednisoLONE ACET 1% OPHT DROP 5 ML BOTTLE LEFTEYE SCH (09:00)
[2020-03-10] MEDS ORDERED: IV NS 1000 ML 1,000 ML IV PRN (10:49)
[2020-03-10] MEDS: SODIUM BICARBONATE 8.4% 100 MEQ in IV 1/2NS 1000 ML 1,000 ML IV PRN (20:12)
[2020-03-10] MEDS: ATORVASTATIN 10 MG TABLET PO SCH (20:36)
[2020-03-10] MEDS: FAMOTIDINE 20 MG TABLET PO SCH (20:36)
[2020-03-10] MEDS: AMLODIPINE 5 MG TABLET PO SCH (20:37)
[2020-03-10] MEDS: INSULIN GLARGINE,HUM 300 UNITS/3 ML CARTRIDGE SQ SCH (20:42)
[2020-03-10] MEDS ORDERED: INSULIN GLARGINE,HUM 300 UNITS/3 ML CARTRIDGE SQ SCH (21:00)
[2020-03-10] MEDS: LORAZEPAM 0.5 MG TABLET PO PRN (23:50)
[2020-03-11] VITALS (7 sets, daily range): BP systolic 158–185; BP diastolic 67–88
[2020-03-11] MEDS: AMLODIPINE 5 MG TABLET PO SCH ×2 (06:18→20:53)
[2020-03-11] MEDS: BLOOD SUGAR DIAGNOSTIC 1 EACH STRIP VI SCH ×4 (06:36→20:55)
[2020-03-11] MEDS: SODIUM BICARBONATE 8.4% 100 MEQ in IV 1/2NS 1000 ML 1,000 ML IV PRN ×2 (06:59→21:43)
[2020-03-11 07:26] LABS: BASOPHILS # (AUTO) 0.1 K/uL (0.0-8.0); BASOPHILS % (AUTO) 0.8 % (0.0-2.0); EOSINOPHILS # (AUTO) 0.2 K/uL (0.0-0.7); EOSINOPHILS % (AUTO) 3.1 % (0.0-7.0); HEMATOCRIT 36.4 % (36.7-47.1); HEMOGLOBIN 12.2 g/dL (12.5-16.3); LYMPHOCYTES # (AUTO) 1.4 K/uL (20.0-40.0); LYMPHOCYTES % (AUTO) 21.4 % (20.5-51.5); MEAN CORPUSCULAR HEMOGLOBIN 28.5 uug (23.8-33.4); MEAN CORPUSCULAR HGB CONC 34 g/dL (32.5-36.3); MONOCYTES # (AUTO) 0.5 K/uL (2.0-10.0); MONOCYTES % (AUTO) 7.2 % (0.0-11.0); NEUTROPHILS # (AUTO) 4.5 K/uL (1.8-8.9); NEUTROPHILS % (AUTO) 67.5 % (38.5-71.5); PLATELET COUNT (AUTO) 200 K/uL (152-348); RED BLOOD CELL COUNT(AUTO) 4.28 MIL/uL (4.06-5.63); WHITE BLOOD COUNT (AUTO) 6.7 K/uL (3.6-10.2)
[2020-03-11 07:37] LABS: ALANINE AMINOTRANSFERASE 13 U/L (16-63); ALKALINE PHOSPHATASE 86 U/L (50-136); ASPARTATE AMINOTRANSFERASE 12 U/L (15-37); BILIRUBIN,TOTAL 0.3 mg/dL (0.2-1.0); CARBON DIOXIDE 27 mmol/L (21-32); CHLORIDE 104 mmol/L (98-107); CREATINE KINASE, TOTAL 314 U/L (39-308); CREATININE 1.9 mg/dL (0.6-1.3); GLUCOSE 155 mg/dL (74-106); MAGNESIUM 1.8 mg/dL (1.8-2.4); PHOSPHOROUS 4.3 mg/dL (2.5-4.9); POTASSIUM 3.8 mmol/L (3.5-5.1); TOTAL PROTEIN, SERUM 6.3 g/dL (6.4-8.2); UREA NITROGEN, BLOOD 36 mg/dL (7-18)
[2020-03-11 07:45] LABS: THYROID STIMULATING HORMONE 0.965 mIU/mL (0.358-3.740)
[2020-03-11 08:02] LABS: URIC ACID 8.1 mg/dL (3.5-7.2)
[2020-03-11] MEDS: predniSONE 5 MG TABLET PO SCH (08:38)
[2020-03-11] MEDS: ASPIRIN EC 81 MG TABLET.DR PO SCH (08:38)
[2020-03-11] MEDS: CITALOPRAM 20 MG TABLET PO SCH (08:38)
[2020-03-11] MEDS: MYCOPHENOLATE MOFETIL 250 MG CAPSULE PO SCH ×2 (08:41→20:54)
[2020-03-11] MEDS: INSULIN REGULAR, HUMAN 300 UNIT/3 ML VIAL SQ PRN ×3 (08:43→16:42)
[2020-03-11] MEDS: LOSARTAN POTASSIUM 25 MG TABLET PO SCH (10:01)
[2020-03-11] MEDS: LORAZEPAM 0.5 MG TABLET PO PRN (12:17)
--- NOTE | 2020-03-11 18:51 | NUR ---
PATIENT CALM AND COMFORTABLE THROUGH OUT SHIFT WITH NO SIGNS OF DISTRESS ; PATIENT WITH NO SIGNS OF DISTRESS; PATIENT WILL CONTINUE TO MONITORED.
--- NOTE | 2020-03-11 19:30 | NUR ---
RECEIVED PT AWAKE, ALERT AND ORIENTEDX4. PT IN NO ACUTE DISTRESS.IV INTACT. SAFETY AND COMFORT PROVIDED. WILL CONTINUE TO MONITOR.
[2020-03-11] MEDS: FAMOTIDINE 20 MG TABLET PO SCH (20:52)
[2020-03-11] MEDS: ATORVASTATIN 10 MG TABLET PO SCH (20:53)
[2020-03-11] MEDS: INSULIN GLARGINE,HUM 300 UNITS/3 ML CARTRIDGE SQ SCH (20:58)
[2020-03-12] MEDS: LORAZEPAM 0.5 MG TABLET PO PRN (01:32)
--- NOTE | 2020-03-12 02:35 | NUR ---
AT 0132H ATIVAN GIVEN TO PT . PT IS ANXIOUS AND WANTS TO SLEEP. PT TOLERATED IT WELL. PT NOW RESTING AND SLEEPING. PT IN NO ACUTE DISTRESS. WILL CONTINUE TO MONITOR.
[2020-03-12 06:11] VITALS: BP 145/62
--- NOTE | 2020-03-12 06:14 | NUR ---
PT SLEPT INTERMITTENTLY. PRESCRIBED MEDICATION GIVEN AND PT TOLERATED IT WELL. SAFETY AND COMFORT PROVIDED. ALL NEEDS ARE MET. WILL ENDORSE TO INCOMING NURSE FOR CONTINUITY OF CARE.
[2020-03-12 06:41] LABS: BASOPHILS # (AUTO) 0.1 K/uL (0.0-8.0); EOSINOPHILS # (AUTO) 0.2 K/uL (0.0-0.7); EOSINOPHILS % (AUTO) 3.8 % (0.0-7.0); HEMATOCRIT 35.9 % (36.7-47.1); HEMOGLOBIN 11.8 g/dL (12.5-16.3); LYMPHOCYTES # (AUTO) 1.6 K/uL (20.0-40.0); LYMPHOCYTES % (AUTO) 26.5 % (20.5-51.5); MEAN CORPUSCULAR HEMOGLOBIN 27.9 uug (23.8-33.4); MEAN CORPUSCULAR HGB CONC 33 g/dL (32.5-36.3); MEAN CORPUSCULAR VOLUME 85.1 fL (73.0-96.2); MONOCYTES # (AUTO) 0.6 K/uL (2.0-10.0); MONOCYTES % (AUTO) 9.3 % (0.0-11.0); NEUTROPHILS # (AUTO) 3.6 K/uL (1.8-8.9); NEUTROPHILS % (AUTO) 59.4 % (38.5-71.5); PLATELET COUNT (AUTO) 186 K/uL (152-348); RED BLOOD CELL COUNT(AUTO) 4.22 MIL/uL (4.06-5.63)
[2020-03-12] MEDS: BLOOD SUGAR DIAGNOSTIC 1 EACH STRIP VI SCH ×4 (06:41→21:48)
[2020-03-12 06:43] LABS: ALANINE AMINOTRANSFERASE 13 U/L (16-63); ALKALINE PHOSPHATASE 91 U/L (50-136); ASPARTATE AMINOTRANSFERASE 13 U/L (15-37); BILIRUBIN,TOTAL 0.3 mg/dL (0.2-1.0); CARBON DIOXIDE 34 mmol/L (21-32); CHLORIDE 107 mmol/L (98-107); CREATININE 1.8 mg/dL (0.6-1.3); GLUCOSE 78 mg/dL (74-106); MAGNESIUM 1.7 mg/dL (1.8-2.4); POTASSIUM 4.4 mmol/L (3.5-5.1); TOTAL PROTEIN, SERUM 6.1 g/dL (6.4-8.2); UREA NITROGEN, BLOOD 28 mg/dL (7-18)
[2020-03-12] MEDS: CITALOPRAM 20 MG TABLET PO SCH (08:42)
[2020-03-12] MEDS: predniSONE 5 MG TABLET PO SCH (08:43)
[2020-03-12] MEDS: AMLODIPINE 5 MG TABLET PO SCH (08:43)
[2020-03-12] MEDS: LOSARTAN POTASSIUM 25 MG TABLET PO SCH (08:43)
[2020-03-12] MEDS: ASPIRIN EC 81 MG TABLET.DR PO SCH (08:43)
[2020-03-12] MEDS: MYCOPHENOLATE MOFETIL 250 MG CAPSULE PO SCH ×2 (08:44→21:43)
[2020-03-12 11:30] VITALS: BP 172/78
[2020-03-12] MEDS ORDERED: MAGNESIUM OXIDE 400 MG TABLET PO ONE (11:30)
[2020-03-12] MEDS ORDERED: CLONIDINE HCL 0.1 MG TABLET PO PRN (11:30)
[2020-03-12] MEDS ORDERED: LOSARTAN POTASSIUM 25 MG TABLET PO ONE (12:15)
[2020-03-12] MEDS ORDERED: AMLODIPINE 5 MG TABLET PO ONE (12:15)
[2020-03-12] MEDS: INSULIN REGULAR, HUMAN 300 UNIT/3 ML VIAL SQ PRN ×3 (12:36→20:57)
[2020-03-12] MEDS: SODIUM BICARBONATE 8.4% 100 MEQ in IV 1/2NS 1000 ML 1,000 ML IV PRN (12:37)
[2020-03-12 16:00] VITALS: BP 176/85
[2020-03-12] MEDS: NIFEdipine XL 60 MG TABSR PO SCH (18:34)
[2020-03-12 20:00] VITALS: BP 154/68
--- NOTE | 2020-03-12 20:27 | NUR ---
awake,alertx4 ,ambulatory no complaints made,in an acute ditress,
[2020-03-12] MEDS: INSULIN GLARGINE,HUM 300 UNITS/3 ML CARTRIDGE SQ SCH (20:59)
[2020-03-12] MEDS: ATORVASTATIN 10 MG TABLET PO SCH (21:43)
[2020-03-12] MEDS: FAMOTIDINE 20 MG TABLET PO SCH (21:44)
[2020-03-13] MEDS: SODIUM BICARBONATE 8.4% 100 MEQ in IV 1/2NS 1000 ML 1,000 ML IV PRN (01:43)
[2020-03-13 05:06] LABS: A/G RATIO 1.1 (0.7-1.7); ALPHA-1-GLOBULIN 0.2 g/dL (0.0-0.4); ALPHA-2-GLOBULIN 0.8 g/dL (0.4-1.0); BETA GLOBULIN 0.9 g/dL (0.7-1.3); GAMMA GLOBULIN 0.7 g/dL (0.4-1.8); GLOBULIN, TOTAL 2.7 g/dL (2.2-3.9); M-SPIKE Not Observed g/dL (Not Observed)
[2020-03-13 05:33] VITALS: BP 135/69
--- NOTE | 2020-03-13 05:42 | NUR ---
slept at short intervals
[2020-03-13] MEDS: BLOOD SUGAR DIAGNOSTIC 1 EACH STRIP VI SCH ×2 (06:28→11:44)
[2020-03-13 06:47] LABS: BASOPHILS # (AUTO) 0.1 K/uL (0.0-8.0); BASOPHILS % (AUTO) 0.9 % (0.0-2.0); EOSINOPHILS # (AUTO) 0.2 K/uL (0.0-0.7); EOSINOPHILS % (AUTO) 2.9 % (0.0-7.0); HEMATOCRIT 35.8 % (36.7-47.1); HEMOGLOBIN 11.8 g/dL (12.5-16.3); LYMPHOCYTES # (AUTO) 1.6 K/uL (20.0-40.0); LYMPHOCYTES % (AUTO) 28.8 % (20.5-51.5); MEAN CORPUSCULAR HEMOGLOBIN 28.1 uug (23.8-33.4); MEAN CORPUSCULAR HGB CONC 33 g/dL (32.5-36.3); MEAN CORPUSCULAR VOLUME 85.1 fL (73.0-96.2); MONOCYTES # (AUTO) 0.5 K/uL (2.0-10.0); MONOCYTES % (AUTO) 8.6 % (0.0-11.0); NEUTROPHILS # (AUTO) 3.3 K/uL (1.8-8.9); NEUTROPHILS % (AUTO) 58.8 % (38.5-71.5); PLATELET COUNT (AUTO) 197 K/uL (152-348); RED BLOOD CELL COUNT(AUTO) 4.21 MIL/uL (4.06-5.63); WHITE BLOOD COUNT (AUTO) 5.5 K/uL (3.6-10.2)
[2020-03-13 06:56] LABS: CARBON DIOXIDE 29 mmol/L (21-32); CHLORIDE 102 mmol/L (98-107); CREATININE 1.9 mg/dL (0.6-1.3); GLUCOSE 208 mg/dL (74-106); MAGNESIUM 1.7 mg/dL (1.8-2.4); POTASSIUM 3.8 mmol/L (3.5-5.1); UREA NITROGEN, BLOOD 30 mg/dL (7-18)
[2020-03-13] MEDS ORDERED: MAGNESIUM OXIDE 400 MG TABLET PO ONE (07:30)
[2020-03-13] MEDS: CITALOPRAM 20 MG TABLET PO SCH (08:12)
[2020-03-13] MEDS: predniSONE 5 MG TABLET PO SCH (08:12)
[2020-03-13] MEDS: ASPIRIN EC 81 MG TABLET.DR PO SCH (08:12)
[2020-03-13] MEDS: MYCOPHENOLATE MOFETIL 250 MG CAPSULE PO SCH (08:14)
[2020-03-13] MEDS: NIFEdipine XL 60 MG TABSR PO SCH (08:14)
[2020-03-13] MEDS: LOSARTAN POTASSIUM 25 MG TABLET PO SCH (08:16)
[2020-03-13] MEDS: INSULIN REGULAR, HUMAN 300 UNIT/3 ML VIAL SQ PRN ×2 (08:19→12:06)
[2020-03-13] MEDS ORDERED: NIFE60TA2 PO (11:18)
[2020-03-13] MEDS ORDERED: LOSA25TA3 PO (11:18)
[2020-03-13 11:19] VITALS: BP 144/72
--- NOTE | 2020-03-13 15:23 | NUR ---
pt. discharged home. pt. picked up by . walked pt. downstairs. pt. is stable. vital signs stable. IV removed. ID band removed. Belongings list signed. all valuables with pt. medication returned to pt.
== END 2020-03-13 15:20 | disposition home or self-care (01) | DRG 698 ==
LOC: ER 00:12 → MEDSURG3 03:11
PROVIDERS: ADMIT Internal Medicine; ATTEND Internal Medicine
DX: T86.12 Kidney transplant failure (principal); N17.0 Acute kidney failure with tubular necrosis; E87.1 Hypo-osmolality and hyponatremia; E44.0 Moderate protein-calorie malnutrition; E87.2 Acidosis; E11.22 Type 2 diabetes mellitus with diabetic chronic kidney disease; E11.65 Type 2 diabetes mellitus with hyperglycemia; I12.9 Hypertensive chronic kidney disease with stage 1 through stage 4 chronic kidney disease, or unspecified chronic kidney disease; N18.3 Chronic kidney disease, stage 3 (moderate); E83.42 Hypomagnesemia; E87.5 Hyperkalemia; F17.210 Nicotine dependence, cigarettes, uncomplicated; F32.9 Major depressive disorder, single episode, unspecified; Z86.73 Personal history of transient ischemic attack (TIA), and cerebral infarction without residual deficits; Z79.4 Long term (current) use of insulin; N25.0 Renal osteodystrophy; E86.1 Hypovolemia; E88.09 Other disorders of plasma-protein metabolism, not elsewhere classified; Z68.32 Body mass index [BMI] 32.0-32.9, adult; N40.0 Benign prostatic hyperplasia without lower urinary tract symptoms; Y83.0 Surgical operation with transplant of whole organ as the cause of abnormal reaction of the patient, or of later complication, without mention of misadventure at the time of the procedure; Z98.1 Arthrodesis status; Y92.009 Unspecified place in unspecified non-institutional (private) residence as the place of occurrence of the external cause
CPT/HCPCS: 36415; 36600; 71045; 76770; 83605; 83735; 83970; 84100; 84155; 84165; 84443; 84550; 85025; 87040; 93005; A4663; G0378; J1815; J3490; J7030; J7040; J7512; J7515; J7517

== ENCOUNTER 2020-05-07 18:36 | Emergency (ER) | payer MEDICARE, MEDICAID ==
[~2020-05-07] VITALS: Ht 162.6 cm; Wt 83.5 kg
[~2020-05-07 18:36] MED LIST changes: -BROM3DRO LEFTEYE; -FURO-151 PO; +LOSA25TA3 PO; -POTA10CA43 PO
--- NOTE | 2020-05-07 19:07 | NUR ---
Received report from JESSENIA Jiménez pt aa/ox4. able to speak in complete sentences no s/s of distress respirations even and unlabored safety precautions in place. bed locked, lowest position. instructed pt to call nurse for assistance
[2020-05-07] MEDS ORDERED: ACETAMINOPHEN ES 500 MG TABLET PO ONE (19:15)
[2020-05-07] MEDS ORDERED: ACETAMINOPHEN ES 500 MG TABLET ONE (19:20)
--- NOTE | 2020-05-07 19:37 | NUR ---
Patient does not wish to proceed with medical care recommended by Dr. Farias. Patient given information related to possible complications, up to and including , which could occur as a result of leaving the hospital at this time. Patient verbalizes understanding of risks involved due to leaving against medical advice. Patient has signed AMA form. aa/ox4. able to speak in complete sentences ambulatory with steady gait all belongings with pt
[2020-05-07 19:52] VITALS: BP 150/94
== END 2020-05-07 19:38 | disposition left against medical advice (07) ==
LOC: ER 18:38
DX: Z04.89 Encounter for examination and observation for other specified reasons (principal); Y09 Assault by unspecified means; Z86.73 Personal history of transient ischemic attack (TIA), and cerebral infarction without residual deficits; Z94.0 Kidney transplant status; E11.9 Type 2 diabetes mellitus without complications; Z79.4 Long term (current) use of insulin; K21.9 Gastro-esophageal reflux disease without esophagitis; Z87.891 Personal history of nicotine dependence; Z79.82 Long term (current) use of aspirin; Z79.52 Long term (current) use of systemic steroids; Z79.899 Other long term (current) drug therapy
CPT/HCPCS: A4663; A9150

== ENCOUNTER 2020-06-03 12:43 | Inpatient (IN) | payer MEDICARE, OTHER ==
[~2020-06-03] VITALS: Ht 162.6 cm; Wt 81.6 kg
--- NOTE | 2020-06-03 13:31 | NUR ---
PT IS IN ROOM #1A. DR MCCANN EVALUATED THE PT.
[2020-06-03 13:40] LABS: BASOPHILS # (AUTO) 0.1 K/uL (0.0-8.0); BASOPHILS % (AUTO) 0.6 % (0.0-2.0); EOSINOPHILS # (AUTO) 0.1 K/uL (0.0-0.7); EOSINOPHILS % (AUTO) 0.7 % (0.0-7.0); HEMATOCRIT 39.1 % (36.7-47.1); HEMOGLOBIN 12.8 g/dL (12.5-16.3); LYMPHOCYTES # (AUTO) 1.5 K/uL (20.0-40.0); LYMPHOCYTES % (AUTO) 16.9 % (20.5-51.5); MEAN CORPUSCULAR HGB CONC 33 g/dL (32.5-36.3); MEAN CORPUSCULAR VOLUME 82.8 fL (73.0-96.2); MONOCYTES # (AUTO) 0.5 K/uL (2.0-10.0); MONOCYTES % (AUTO) 5.8 % (0.0-11.0); NEUTROPHILS # (AUTO) 6.7 K/uL (1.8-8.9); PLATELET COUNT (AUTO) 246 K/uL (152-348); RED BLOOD CELL COUNT(AUTO) 4.72 MIL/uL (4.06-5.63); WHITE BLOOD COUNT (AUTO) 8.8 K/uL (3.6-10.2)
[2020-06-03 13:42] LABS: CARBON DIOXIDE 22 mmol/L (21-32); CHLORIDE 101 mmol/L (98-107); CREATININE 2.9 mg/dL (0.6-1.3); GLUCOSE 81 mg/dL (74-106); POTASSIUM 4.2 mmol/L (3.5-5.1); UREA NITROGEN, BLOOD 78 mg/dL (7-18)
[2020-06-03 13:54] LABS: ALANINE AMINOTRANSFERASE 12 U/L (16-63); ALKALINE PHOSPHATASE 120 U/L (50-136); ASPARTATE AMINOTRANSFERASE 13 U/L (15-37); BILIRUBIN,DIRECT 0.1 mg/dL (0.0-0.2); BILIRUBIN,TOTAL 0.3 mg/dL (0.2-1.0); TOTAL PROTEIN, SERUM 7.9 g/dL (6.4-8.2)
[2020-06-03] MEDS ORDERED: levoFLOXacin 500 MG/D5W 100ML PIGGYBACK IV ONE (14:15)
[2020-06-03] MEDS ORDERED: levoFLOXacin 500 MG/D5W 100 ML ONE (14:37)
[2020-06-03] MEDS ORDERED: INSU100V7 SQ (14:53)
--- NOTE | 2020-06-03 17:14 | NUR ---
REPORT WAS GIVEN TO VALVE ASSEMBLER. PT WAS TRANSFERED TO ROOM #321.
--- NOTE | 2020-06-03 17:30 | NUR ---
ADMITTED FROM HOME A 69 YO MALE WITH ADMITTING DX OF PLEURAL EFFUSION, AWAKE ALERT AND ORIENTED X3, SLIGHT SOB ON EXERTION. ROUTINE ADMISSION ASSESSMENT INITIATED. NOTIFIED OF ADMISSION
[2020-06-03 18:16] VITALS: BP 140/69
--- NOTE | 2020-06-03 18:38 | NUR ---
DR ZIMMERMAN CALLED BACK AND SAID WILL PUT ADMISSION ORDERS IN THE COMPUTER
--- NOTE | 2020-06-03 19:30 | NUR ---
RECEIVED PT AWAKE, ALERT AND ORIENTEDX4. PT IN NO ACUTE DISTRESS. IV INTACT. SAFETY AND COMFORT PROVIDED. WAITING FOR DR ORDERS. WILL CONTINUE TO MONITOR.
[2020-06-03 20:00] VITALS: BP 134/67
[2020-06-03] MEDS ORDERED: ZOLPIDEM 5 MG TABLET PO PRN (20:15)
[2020-06-03] MEDS ORDERED: HYDROCODONE/APAP 5-325MG TABLET PO PRN (20:15)
[2020-06-03] MEDS ORDERED: Z GUARD REMEDY PASTE 57 GM TUBE TOP PRN (20:15)
[2020-06-03] MEDS ORDERED: ONDANSETRON 4 MG/2 ML VIAL IV PRN (20:15)
[2020-06-03] MEDS ORDERED: DEXTROSE 50% 50 ML DISP.SYRIN IV PRN (20:15)
[2020-06-03] MEDS ORDERED: ACETAMINOPHEN 325 MG TABLET PO PRN (20:15)
[2020-06-03] MEDS ORDERED: MAGNESIUM HYDROXIDE 30 ML LIQUID UDC PO PRN (20:15)
[2020-06-03] MEDS ORDERED: INSULIN GLARGINE,HUM 300 UNITS/3 ML CARTRIDGE SQ ONE (21:38)
[2020-06-03] MEDS: BLOOD SUGAR DIAGNOSTIC 1 EACH STRIP VI SCH (21:48)
[2020-06-03] MEDS: INSULIN GLARGINE,HUM 300 UNITS/3 ML CARTRIDGE SQ SCH (21:48)
[2020-06-03] MEDS: INSULIN REGULAR, HUMAN 300 UNITS/3 ML VIAL SQ PRN (21:49)
[2020-06-03] MEDS: MYCOPHENOLATE MOFETIL 250 MG CAPSULE PO SCH (22:36)
--- NOTE | 2020-06-03 22:36 | NUR ---
CELLCEPT LATE ADMINISTERED JUST GOT IT FROM THE PHARMACIST FROM [place]. PT IN NO ACUTE DISTRESS. WILL CONTINUE TO MONITOR.
[2020-06-04] VITALS: BP 136/69
[2020-06-04 04:00] VITALS: BP 140/73
--- NOTE | 2020-06-04 06:17 | NUR ---
PT SLEPT INTERMITTENTLY. PRESCRIBED MEDICATION GIVEN AND PT TOLERATED IT WELL. PT REQUESTED TO HAVE FOOD HE SAID HE THINK HIS BLOOD SUGAR LOW. CHECKED BLOOD SUGAR AND IT WAS 61. GAVE ORANGE JUICE AFTER SEVERAL MINUTES BLOOD SUGAR IS 124. PT IN NO ACUTE DISTRESS. SAFETY AND COMFORT PROVIDED. ALL NEEDS ARE MET. WILL ENDORSE TO INCOMING NURSE FOR CONTINUITY OF CARE.
[2020-06-04] MEDS: BLOOD SUGAR DIAGNOSTIC 1 EACH STRIP VI SCH ×4 (06:36→21:37)
[2020-06-04 07:30] VITALS: BP 146/70
--- NOTE | 2020-06-04 08:00 | NUR ---
AWAKE ALERT AND ORIENTED X3, NO SS OF PAIN OR ACUTE SOB. PATIENT TOLERATING RA WITH SATURATION OF 98% RA
[2020-06-04 08:02] LABS: BASOPHILS # (AUTO) 0.1 K/uL (0.0-8.0); BASOPHILS % (AUTO) 0.8 % (0.0-2.0); EOSINOPHILS # (AUTO) 0.1 K/uL (0.0-0.7); EOSINOPHILS % (AUTO) 1.7 % (0.0-7.0); HEMATOCRIT 37.7 % (36.7-47.1); HEMOGLOBIN 12.2 g/dL (12.5-16.3); LYMPHOCYTES # (AUTO) 1.3 K/uL (20.0-40.0); LYMPHOCYTES % (AUTO) 20.1 % (20.5-51.5); MEAN CORPUSCULAR HEMOGLOBIN 26.9 uug (23.8-33.4); MEAN CORPUSCULAR HGB CONC 32 g/dL (32.5-36.3); MEAN CORPUSCULAR VOLUME 83.3 fL (73.0-96.2); MONOCYTES # (AUTO) 0.7 K/uL (2.0-10.0); MONOCYTES % (AUTO) 9.9 % (0.0-11.0); NEUTROPHILS # (AUTO) 4.4 K/uL (1.8-8.9); NEUTROPHILS % (AUTO) 67.5 % (38.5-71.5); PLATELET COUNT (AUTO) 220 K/uL (152-348); RED BLOOD CELL COUNT(AUTO) 4.52 MIL/uL (4.06-5.63); WHITE BLOOD COUNT (AUTO) 6.6 K/uL (3.6-10.2)
[2020-06-04 08:22] LABS: CARBON DIOXIDE 23 mmol/L (21-32); CHLORIDE 105 mmol/L (98-107); CHOLESTEROL 130 mg/dL (<200); CREATININE 2.4 mg/dL (0.6-1.3); GLUCOSE 146 mg/dL (74-106); HDL CHOLESTEROL 48 mg/dL (40-60); MAGNESIUM 2.1 mg/dL (1.8-2.4); PHOSPHOROUS 4.6 mg/dL (2.5-4.9); POTASSIUM 4.1 mmol/L (3.5-5.1); TRIGLYCERIDES 114 MG/DL (30-150); UREA NITROGEN, BLOOD 67 mg/dL (7-18)
[2020-06-04] MEDS ORDERED: CYCLOSPORINE MODIFIED 100 MG PO SCH (09:00)
--- NOTE | 2020-06-04 09:00 | NUR ---
SEEN BY DR LI FOR CARDIO FOLLOW-UP, SEE NOTES. REMAINS SR ON MONITOR
[2020-06-04] MEDS: ASPIRIN EC 81 MG TABLET.DR PO SCH (09:12)
[2020-06-04] MEDS: CITALOPRAM 20 MG TABLET PO SCH (09:12)
[2020-06-04] MEDS: predniSONE 5 MG TABLET PO SCH (09:12)
[2020-06-04] MEDS: NIFEdipine XL 60 MG TABSR PO SCH ×2 (09:13→16:17)
[2020-06-04] MEDS: MYCOPHENOLATE MOFETIL 250 MG CAPSULE PO SCH ×2 (09:14→21:35)
[2020-06-04] MEDS: INSULIN REGULAR, HUMAN 300 UNIT/3 ML VIAL SQ PRN ×2 (12:06→16:16)
--- NOTE | 2020-06-04 13:13 | NUR ---
SEEN BY DR ZIMMERMAN FOR FOLLOW-UP. PLAN US GUIDED THORACENTESIS TODAY. DR ARTIS NOTIFIED PER DR ZIMMERMAN
--- NOTE | 2020-06-04 15:20 | NUR ---
seen by dr gray with order for us guided thoracentesis, US tech notified., consent signed by patient after talking with dr gray
[2020-06-04 15:58] VITALS: BP 137/71
--- NOTE | 2020-06-04 16:42 | NUR ---
us guide thoracentesis started at bed bedside under local anesthesis
--- NOTE | 2020-06-04 17:02 | NUR ---
RIGHT SIDE THORACENTESIS PROCEDURE COMPLETED FOLLOWED WITH STAT CXR..
[2020-06-04 17:05] VITALS: BP 156/70
--- NOTE | 2020-06-04 17:28 | NUR ---
MEDICATED WITH NORCO FOR PAIN ON MOVEMENT, O2 2L NC ADMINISTERED. SATURATION 100%, WARM AND DRY SKIN, SR ON MONITOR AT A RATE OF 76. CONTINUE TO OBSERVE
--- NOTE | 2020-06-04 20:00 | NUR ---
Received patient in bed alert and verbally responsive.No s/s of distress noted.Denies pain or discomfort at this time.IV site on right AC intact , no s/s of infiltration.Compliant with medication.Call light with in reach.Continue safety measures.Will continue to monitor.
[2020-06-04] MEDS ORDERED: ATORVASTATIN 20 MG TABLET PO SCH (21:00)
[2020-06-04 21:09] VITALS: BP 119/62
[2020-06-04] MEDS: INSULIN REGULAR, HUMAN 300 UNITS/3 ML VIAL SQ PRN (21:42)
[2020-06-04] MEDS: INSULIN GLARGINE,HUM 300 UNITS/3 ML CARTRIDGE SQ SCH (21:44)
[2020-06-04] MEDS ORDERED: OXCARBAZEPINE 300 MG TABLET PO SCH (22:15)
[2020-06-04] MEDS ORDERED: OLANZAPINE 5 MG TABLET PO SCH (22:15)
[2020-06-05 00:36] VITALS: BP 122/65
[2020-06-05 04:58] VITALS: BP 139/72
[2020-06-05] MEDS: BLOOD SUGAR DIAGNOSTIC 1 EACH STRIP VI SCH ×3 (06:32→16:16)
--- NOTE | 2020-06-05 06:54 | NUR ---
Patient awake ,verbally responsive.S/P Rt side thoracentesis .Denies pain or discomfort at this time.No SOB.Snacks given earlier d/t BS was 64. Received BS went up 204.Call light with in reach.Will endorse to oncoming nurse.
--- NOTE | 2020-06-05 07:30 | NUR ---
UP ON CHAIR SITTING COMFORTABLY NO SS OF PAIN OR SOB SATURATING 98% ON RA. UP AROUND THE ROOM WITHOUT ANY DIFFICULTY. SR ON MONITOR. CONTINUE WITH TELE MONITORING
[2020-06-05] MEDS: INSULIN REGULAR, HUMAN 300 UNIT/3 ML VIAL SQ PRN ×3 (08:08→16:17)
[2020-06-05] MEDS: CITALOPRAM 20 MG TABLET PO SCH (08:10)
[2020-06-05] MEDS: ASPIRIN EC 81 MG TABLET.DR PO SCH (08:10)
[2020-06-05] MEDS: predniSONE 5 MG TABLET PO SCH (08:11)
[2020-06-05] MEDS: MYCOPHENOLATE MOFETIL 250 MG CAPSULE PO SCH (08:11)
[2020-06-05] MEDS: NIFEdipine XL 60 MG TABSR PO SCH ×2 (08:12→16:22)
[2020-06-05] MEDS ORDERED: Liraglutide (Victoza 3-Pak) 1.8 MG XX SCH (09:00)
--- NOTE | 2020-06-05 10:58 | NUR ---
SEEN BY DR LI WITH ORDER TO TRANSFER PATIENT STATUS TO TELE Addendum: 06/05/20 at 1103 by FUENTES GAINES RN PATIENT STATUS CHANGED TO MEDSURG PER DR LI
[2020-06-05] MEDS ORDERED: FUROSEMIDE 20 MG TABLET PO SCH (11:00)
[2020-06-05 12:00] VITALS: BP 123/64
--- NOTE | 2020-06-05 15:14 | NUR ---
SEEN BY DR VALDEZ, WILL FOLLOW-UP CXR IN AM
[2020-06-05 16:06] VITALS: BP 132/63
--- NOTE | 2020-06-05 16:07 | NUR ---
SEEN BY DR ZIMMERMAN, CALLED DR ARTIS RE: BOTH AGREED OKAY TO GO HOME TODAY.
[2020-06-05] MEDS ORDERED: FURO20TA4 PO (16:08)
[2020-06-05] MEDS ORDERED: ATOR20TA PO (16:08)
[2020-06-05 16:22] VITALS: BP 138/68
[2020-06-05 16:57] LABS: BASOPHILS # (AUTO) 0.1 K/uL (0.0-8.0); BASOPHILS % (AUTO) 1.1 % (0.0-2.0); EOSINOPHILS # (AUTO) 0.1 K/uL (0.0-0.7); EOSINOPHILS % (AUTO) 1.1 % (0.0-7.0); HEMATOCRIT 38.5 % (36.7-47.1); HEMOGLOBIN 12.5 g/dL (12.5-16.3); LYMPHOCYTES # (AUTO) 1.2 K/uL (20.0-40.0); LYMPHOCYTES % (AUTO) 13.6 % (20.5-51.5); MEAN CORPUSCULAR HEMOGLOBIN 26.8 uug (23.8-33.4); MEAN CORPUSCULAR HGB CONC 32 g/dL (32.5-36.3); MEAN CORPUSCULAR VOLUME 82.9 fL (73.0-96.2); MONOCYTES # (AUTO) 0.7 K/uL (2.0-10.0); MONOCYTES % (AUTO) 7.6 % (0.0-11.0); NEUTROPHILS # (AUTO) 6.7 K/uL (1.8-8.9); NEUTROPHILS % (AUTO) 76.6 % (38.5-71.5); PLATELET COUNT (AUTO) 232 K/uL (152-348); RED BLOOD CELL COUNT(AUTO) 4.65 MIL/uL (4.06-5.63); WHITE BLOOD COUNT (AUTO) 8.8 K/uL (3.6-10.2)
[2020-06-05 17:04] LABS: ALANINE AMINOTRANSFERASE 15 U/L (16-63); ALKALINE PHOSPHATASE 110 U/L (50-136); ASPARTATE AMINOTRANSFERASE 7 U/L (15-37); BILIRUBIN,TOTAL 0.4 mg/dL (0.2-1.0); CARBON DIOXIDE 21 mmol/L (21-32); CHLORIDE 103 mmol/L (98-107); CREATININE 2.6 mg/dL (0.6-1.3); GLUCOSE 158 mg/dL (74-106); MAGNESIUM 2.1 mg/dL (1.8-2.4); PHOSPHOROUS 4.3 mg/dL (2.5-4.9); POTASSIUM 4.8 mmol/L (3.5-5.1); TOTAL PROTEIN, SERUM 7.2 g/dL (6.4-8.2); UREA NITROGEN, BLOOD 64 mg/dL (7-18)
--- NOTE | 2020-06-05 18:15 | NUR ---
DISCHARGE HOME AMBULATORY ACCOMPANIED BY WITH FOLLOW-UP INSTRUCTION WITH PCP.
[2020-06-05] MEDS ORDERED: CLOZAPINE 25 MG TABLET PO SCH (21:00)
== END 2020-06-05 18:16 | disposition home or self-care (01) | DRG 291 ==
LOC: ER 12:43 → TELE3 17:16 → MEDSURG3 06-05 11:05
PROVIDERS: ADMIT Internal Medicine; ATTEND Internal Medicine
PROC: 0W993ZZ Drainage of Right Pleural Cavity, Percutaneous Approach (ICD-10-PCS; principal; 2020-06-04)
DX: I13.0 Hypertensive heart and chronic kidney disease with heart failure and stage 1 through stage 4 chronic kidney disease, or unspecified chronic kidney disease (principal); N17.0 Acute kidney failure with tubular necrosis; I50.33 Acute on chronic diastolic (congestive) heart failure; T86.12 Kidney transplant failure; J91.8 Pleural effusion in other conditions classified elsewhere; Z86.73 Personal history of transient ischemic attack (TIA), and cerebral infarction without residual deficits; E78.5 Hyperlipidemia, unspecified; F17.210 Nicotine dependence, cigarettes, uncomplicated; N18.9 Chronic kidney disease, unspecified; I25.10 Atherosclerotic heart disease of native coronary artery without angina pectoris; E11.22 Type 2 diabetes mellitus with diabetic chronic kidney disease; Y83.8 Other surgical procedures as the cause of abnormal reaction of the patient, or of later complication, without mention of misadventure at the time of the procedure; Y92.009 Unspecified place in unspecified non-institutional (private) residence as the place of occurrence of the external cause; Z79.4 Long term (current) use of insulin; J98.4 Other disorders of lung; E11.649 Type 2 diabetes mellitus with hypoglycemia without coma; Y83.0 Surgical operation with transplant of whole organ as the cause of abnormal reaction of the patient, or of later complication, without mention of misadventure at the time of the procedure; Z91.14 Patient's other noncompliance with medication regimen
CPT/HCPCS: 32555; 36415; 70030-TC; 71045; 71250; 83615; 83735; 83986; 84100; 84155; 85025; 85730; 87040; 87070; 87205; 93005; 93307; A4663; G0378; J1815; J1956; J7512; J7517

== ENCOUNTER 2021-02-15 00:36 | Inpatient (IN) | payer MEDICARE, OTHER ==
[~2021-02-15] VITALS: Ht 162.6 cm; Wt 81.6 kg
[~2021-02-15 00:36] MED LIST changes: +ATOR20TA PO; +FURO20TA4 PO; -Insulin Glargine,Hum SQ; -LOSA25TA3 PO; -LOVA20TA2 PO; -PRED5DRO16 LEFTEYE; -RANI-655 PO
[2021-02-15] MEDS ORDERED: IV NORMAL SALINE 1000 ML BAG IV ONE (00:45)
--- NOTE | 2021-02-15 01:00 | NUR ---
awake , oriented , iv started right hand 20 ga , av shunt bruit and thrill present on left upper arm
[2021-02-15 01:02] LABS: BASOPHILS # (AUTO) 0.1 K/uL (0.0-8.0); BASOPHILS % (AUTO) 1.1 % (0.0-2.0); EOSINOPHILS # (AUTO) 0.1 K/uL (0.0-0.7); EOSINOPHILS % (AUTO) 1.4 % (0.0-7.0); HEMATOCRIT 38.2 % (36.7-47.1); HEMOGLOBIN 12.3 g/dL (12.5-16.3); LYMPHOCYTES # (AUTO) 1.5 K/uL (20.0-40.0); LYMPHOCYTES % (AUTO) 24.2 % (20.5-51.5); MEAN CORPUSCULAR HEMOGLOBIN 27.1 uug (23.8-33.4); MEAN CORPUSCULAR HGB CONC 32 g/dL (32.5-36.3); MEAN CORPUSCULAR VOLUME 83.9 fL (73.0-96.2); MONOCYTES # (AUTO) 0.6 K/uL (2.0-10.0); MONOCYTES % (AUTO) 9.3 % (0.0-11.0); PLATELET COUNT (AUTO) 212 K/uL (152-348); RED BLOOD CELL COUNT(AUTO) 4.56 MIL/uL (4.06-5.63); WHITE BLOOD COUNT (AUTO) 6.2 K/uL (3.6-10.2)
[2021-02-15 01:16] LABS: ALANINE AMINOTRANSFERASE 21 U/L (16-63); ALKALINE PHOSPHATASE 107 U/L (50-136); ASPARTATE AMINOTRANSFERASE 11 U/L (15-37); BILIRUBIN,DIRECT 0.1 mg/dL (0.0-0.2); BILIRUBIN,TOTAL 0.3 mg/dL (0.2-1.0); CARBON DIOXIDE 24 mmol/L (21-32); CHLORIDE 95 mmol/L (98-107); CREATININE 3.8 mg/dL (0.6-1.3); GLUCOSE 227 mg/dL (74-106); LIPASE 253 U/L (73-393); POTASSIUM 4.7 mmol/L (3.5-5.1); TOTAL PROTEIN, SERUM 7.2 g/dL (6.4-8.2)
[2021-02-15 01:18] LABS: UREA NITROGEN, BLOOD 93 mg/dL (7-18)
[2021-02-15] MEDS ORDERED: hydrALAZINE HCL 20 MG/1 ML VIAL IV ONE (01:30)
[2021-02-15] MEDS ORDERED: ATOR10TA PO (01:34)
[2021-02-15] MEDS ORDERED: FURO20TA4 PO (01:34)
--- NOTE | 2021-02-15 01:35 | NUR ---
dr rebollar called and talked to er doctor about patient , cxr done , gave admitting orders to primary nurse
[2021-02-15] MEDS ORDERED: hydrALAZINE HCL 20 MG/1 ML VIAL ONE (01:48)
--- NOTE | 2021-02-15 02:14 | NUR ---
received call from Samanta Shoes , negative for rapid covid
--- NOTE | 2021-02-15 03:00 | NUR ---
Admitted a 70 male on Telemetry with an admitting diagnosis of Acute renal failure. Pt is ambulatory, transferred to bed on his own. Head to toe assessment done. Pt is A&Ox4, verbally responsive, able to make needs known. Pt denies any pain or discomfort, no s/s of respiratory distress. NSR on tele at 72/min. IV access on R hand intact and patent. Belongings checked and placed at bedside. Safety measures in place, call light within reach, will continue to monitor.
--- NOTE | 2021-02-15 03:15 | NUR ---
given report to geena , patient is awake oriented , all belongings sent , history and dx and medications given and endorsed
[2021-02-15 03:18] VITALS: BP 146/71
[2021-02-15 04:00] VITALS: BP 106/73
[2021-02-15 05:46] LABS: BASOPHILS # (AUTO) 0.1 K/uL (0.0-8.0); BASOPHILS % (AUTO) 0.9 % (0.0-2.0); EOSINOPHILS # (AUTO) 0.1 K/uL (0.0-0.7); HEMATOCRIT 37.1 % (36.7-47.1); HEMOGLOBIN 11.9 g/dL (12.5-16.3); LYMPHOCYTES # (AUTO) 1.9 K/uL (20.0-40.0); LYMPHOCYTES % (AUTO) 30.5 % (20.5-51.5); MEAN CORPUSCULAR HEMOGLOBIN 26.7 uug (23.8-33.4); MEAN CORPUSCULAR HGB CONC 32 g/dL (32.5-36.3); MEAN CORPUSCULAR VOLUME 83.3 fL (73.0-96.2); MONOCYTES # (AUTO) 0.6 K/uL (2.0-10.0); MONOCYTES % (AUTO) 9.8 % (0.0-11.0); NEUTROPHILS # (AUTO) 3.5 K/uL (1.8-8.9); NEUTROPHILS % (AUTO) 56.8 % (38.5-71.5); PLATELET COUNT (AUTO) 194 K/uL (152-348); RED BLOOD CELL COUNT(AUTO) 4.46 MIL/uL (4.06-5.63); WHITE BLOOD COUNT (AUTO) 6.1 K/uL (3.6-10.2)
[2021-02-15 06:06] LABS: ALANINE AMINOTRANSFERASE 19 U/L (16-63); ALKALINE PHOSPHATASE 95 U/L (50-136); ASPARTATE AMINOTRANSFERASE 12 U/L (15-37); BILIRUBIN,TOTAL 0.2 mg/dL (0.2-1.0); CARBON DIOXIDE 25 mmol/L (21-32); CHLORIDE 99 mmol/L (98-107); CREATININE 3.5 mg/dL (0.6-1.3); GLUCOSE 129 mg/dL (74-106); POTASSIUM 4.6 mmol/L (3.5-5.1); TOTAL PROTEIN, SERUM 6.7 g/dL (6.4-8.2)
[2021-02-15 06:12] LABS: UREA NITROGEN, BLOOD 89 mg/dL (7-18)
--- NOTE | 2021-02-15 06:38 | NUR ---
Pt in bed, slept intermittently through the night. IV access intact and patent. No s/s of acute distress. Denies chest pain. NSR on tele with first AV block at 65/min. Pt decided to be on a DNR/DNI status. Instructed pt to discuss status with the doctor in AM. Will endorse to incoming nurse.
[2021-02-15 08:00] VITALS: BP 102/41
[2021-02-15] MEDS ORDERED: IV NS 1000 ML 1,000 ML IV PRN (08:00)
[2021-02-15] MEDS: CITALOPRAM 20 MG TABLET PO SCH (08:21)
[2021-02-15] MEDS: predniSONE 5 MG TABLET PO SCH (08:22)
[2021-02-15] MEDS: MYCOPHENOLATE MOFETIL 250 MG CAPSULE PO SCH ×2 (08:22→20:32)
[2021-02-15] MEDS: ASPIRIN EC 81 MG TABLET.DR PO SCH (08:22)
[2021-02-15] MEDS: NIFEdipine XL 60 MG TABSR PO SCH ×2 (08:22→20:31)
[2021-02-15] MEDS ORDERED: DEXTROSE 50% 50 ML DISP.SYRIN IV PRN (08:30)
--- NOTE | 2021-02-15 08:51 | NUR ---
alert, oriented, in bed, no complaint. requested status to DNR/DNI, his dr on round, made aware and paperwork signed.
[2021-02-15] MEDS ORDERED: LIRAGLUTIDE 1.8 MG XX SCH (09:00)
[2021-02-15] MEDS ORDERED: ERGOCALCIFEROL 50,000 UNIT CAPSULE PO SCH (09:00)
[2021-02-15] MEDS ORDERED: ASPIRIN 81 MG TAB.CHEW PO SCH (09:00)
[2021-02-15] MEDS ORDERED: FUROSEMIDE 20 MG TABLET PO SCH (09:00)
[2021-02-15] MEDS: BLOOD SUGAR DIAGNOSTIC 1 EACH STRIP VI SCH ×3 (11:07→20:45)
[2021-02-15] MEDS: INSULIN REGULAR, HUMAN 300 UNIT/3 ML VIAL SQ PRN ×2 (11:08→16:27)
[2021-02-15 12:00] VITALS: BP 114/55
--- NOTE | 2021-02-15 14:23 | NUR ---
seen by his own dr, Samuel Lock, code status changed to FULL. awake, alert, appropriate, on gentle hydration ivf, NS at 50cc ( hx of chf). Blood sugar initiated prior to lunch today. \ family brought in 2 drugs (Gengraft, and Victoza, both for his kidney transplant), drugs sent to [facility] for verification, so patient can get what he needs
[2021-02-15 14:57] VITALS: BP 104/52
[2021-02-15] MEDS: CYCLOSPORINE MODIFIED 100 MG PO SCH ×2 (16:15→22:49)
[2021-02-15] MEDS ORDERED: CLOP75TA33 PO (17:43)
[2021-02-15] MEDS ORDERED: PRIM50TA5 GT (17:44)
[2021-02-15] MEDS ORDERED: CLON1PAT2 TD (17:45)
[2021-02-15] MEDS ORDERED: HYDR100T27 PO (17:45)
[2021-02-15 20:24] LABS: *BILIRUBIN,URIN NEGATIVE (NEGATIVE); *BLOOD, URINE NEGATIVE (NEGATIVE); *COLOR,URINE YELLOW (YELLOW); *KETONES,URINE NEGATIVE (NEGATIVE); *UROBILINOGEN,URINE 0.2 E.U./dl (NORMAL); LEUKOCYTE ESTERASE ,URINE NEGATIVE (NEGATIVE); NITRITE, URINE NEGATIVE (NEGATIVE); UGLUCOSE NEGATIVE (NEGATIVE)
--- NOTE | 2021-02-15 20:30 | NUR ---
RECEIVED PATIENT IN ROOM SITTING IN THE CHAIR . PATIENT WITH IVF INFUSING NORMAL SALINE AT 50 ML/HR ,VIA THE RIGHT HAND #20.h/L
[2021-02-15] MEDS: ATORVASTATIN 10 MG TABLET PO SCH (20:32)
[2021-02-15 20:34] LABS: *CLARITY,URINE SLIGHTLY HAZY (CLEAR); BACTERIA,URINE FEW /HPF (NONE SEEN); SQUAMOUS EPITHELIAL CELL,UR FEW /HPF (NONE SEEN)
[2021-02-15] MEDS: INSULIN REGULAR, HUMAN 300 UNITS/3 ML VIAL SQ PRN (20:47)
[2021-02-15 20:56] VITALS: BP 121/63
[2021-02-15] MEDS: LORAZEPAM 1 MG TABLET PO PRN (22:49)
--- NOTE | 2021-02-15 22:50 | NUR ---
PATIENT CALLED AND REQUESTING FOR HIS HOME MEDICATION GENGRAF PER PATIENT HE TAKES IT TWICE A DAY AND HE DONT WANT TO MISSED IT .ATIVAN PO GIVEN PER REQUEST .
[2021-02-16 00:05] VITALS: BP 110/52
--- NOTE | 2021-02-16 01:40 | NUR ---
PATIENT CALLED AND VERBALIZED HIS SUGAR IS LOW NOTED PATIENT HANDS SHAKING . FINGERSTICK DONE BLOOD SUGAR 62MG/DL. GIVEN CRACKERS AND TUNA SANDWICH PATIENT DONT WANT ORANGE JUICE HE SAID ITS HIGH IN POTASSIUM WANTS APPLE JUICE INSTEAD,PATIENT ABLE TO FEED SELF .
--- NOTE | 2021-02-16 02:21 | NUR ---
RECHECKED BLOOD SUGAR 141 MG/DL ,THIS TIME PATIENT VERBALIZED HE FEELS BETTER .
[2021-02-16 04:35] VITALS: BP 124/59
[2021-02-16 06:09] LABS: BASOPHILS % (AUTO) 0.7 % (0.0-2.0); EOSINOPHILS # (AUTO) 0.1 K/uL (0.0-0.7); EOSINOPHILS % (AUTO) 1.6 % (0.0-7.0); HEMATOCRIT 32.4 % (36.7-47.1); HEMOGLOBIN 10.7 g/dL (12.5-16.3); LYMPHOCYTES # (AUTO) 1.1 K/uL (20.0-40.0); LYMPHOCYTES % (AUTO) 16.9 % (20.5-51.5); MEAN CORPUSCULAR HEMOGLOBIN 27.7 uug (23.8-33.4); MEAN CORPUSCULAR HGB CONC 33 g/dL (32.5-36.3); MEAN CORPUSCULAR VOLUME 83.9 fL (73.0-96.2); MONOCYTES # (AUTO) 0.5 K/uL (2.0-10.0); MONOCYTES % (AUTO) 7.6 % (0.0-11.0); NEUTROPHILS # (AUTO) 4.7 K/uL (1.8-8.9); NEUTROPHILS % (AUTO) 73.2 % (38.5-71.5); PLATELET COUNT (AUTO) 202 K/uL (152-348); RED BLOOD CELL COUNT(AUTO) 3.86 MIL/uL (4.06-5.63); WHITE BLOOD COUNT (AUTO) 6.5 K/uL (3.6-10.2)
[2021-02-16 06:21] LABS: CARBON DIOXIDE 19 mmol/L (21-32); CHLORIDE 96 mmol/L (98-107); CREATININE 3.4 mg/dL (0.6-1.3); GLUCOSE 296 mg/dL (74-106); MAGNESIUM 1.6 mg/dL (1.8-2.4); PHOSPHOROUS 6.6 mg/dL (2.5-4.9)
[2021-02-16 06:23] LABS: UREA NITROGEN, BLOOD 92 mg/dL (7-18)
[2021-02-16] MEDS: INSULIN REGULAR, HUMAN 300 UNIT/3 ML VIAL SQ PRN ×4 (07:48→16:48)
[2021-02-16 08:00] VITALS: BP 116/51
[2021-02-16] MEDS: CITALOPRAM 20 MG TABLET PO SCH (08:20)
[2021-02-16] MEDS: ASPIRIN EC 81 MG TABLET.DR PO SCH (08:20)
[2021-02-16] MEDS: BLOOD SUGAR DIAGNOSTIC 1 EACH STRIP VI SCH ×4 (08:20→20:32)
[2021-02-16] MEDS: predniSONE 5 MG TABLET PO SCH (08:20)
[2021-02-16] MEDS: MYCOPHENOLATE MOFETIL 250 MG CAPSULE PO SCH ×2 (08:21→20:43)
[2021-02-16] MEDS: NIFEdipine XL 60 MG TABSR PO SCH ×2 (08:25→20:44)
[2021-02-16] MEDS: CYCLOSPORINE MODIFIED 100 MG PO SCH ×2 (08:55→16:46)
[2021-02-16] MEDS: VICTOZA 18 MG/3 ML SQ SCH (08:56)
[2021-02-16] MEDS: CLOPIDOGREL 75 MG TABLET PO SCH (08:58)
[2021-02-16 12:00] VITALS: BP 144/65
[2021-02-16] MEDS ORDERED: MIRALAX 17 GM POWD.PACK PO PRN (12:00)
[2021-02-16] MEDS ORDERED: DOCUSATE SODIUM 100 MG/10 ML LIQUID UDC GT SCH (12:00)
[2021-02-16] MEDS ORDERED: MAGNESIUM SULFATE/D5W 100 ML IV SCH (12:00)
[2021-02-16] MEDS: DOCUSATE SODIUM 100 MG CAPSULE PO SCH ×2 (12:15→20:44)
--- NOTE | 2021-02-16 16:00 | NUR ---
200 cc Bladder Scan done. Pt denies any distention.
[2021-02-16 16:14] VITALS: BP 122/58
[2021-02-16] MEDS ORDERED: FUROSEMIDE 40 MG/4 ML VIAL IV ONE (18:30)
--- NOTE | 2021-02-16 18:45 | NUR ---
Called and Notified DR Phillips re: pt c/o sob. IVF stopped per pt's request. Listened to lungs no change from am. Lower parul quadrant diminished. o2 sat r/a @97% after ambulating around hallway. New orders received and carried out.
--- NOTE | 2021-02-16 19:30 | NUR ---
Report received. Patient AAO, ambulating in the jiang way. States he's feeling better. Denies SOB. Plan of care discussed. Awaiting for CXR result. Spoke to Luke thomason, he will follow up report.
--- NOTE | 2021-02-16 20:20 | NUR ---
Call placed to Dr. Phillips re: CXR results; awaiting call back.
[2021-02-16 20:21] VITALS: BP 133/64
--- NOTE | 2021-02-16 20:40 | NUR ---
Dr. Phillips called back; informed of CXR results. Order received to DC IV NS at 50 ml/H.
[2021-02-16] MEDS: INSULIN REGULAR, HUMAN 300 UNITS/3 ML VIAL SQ PRN (20:46)
[2021-02-16] MEDS: ATORVASTATIN 10 MG TABLET PO SCH (20:46)
[2021-02-16] MEDS: LORAZEPAM 1 MG TABLET PO PRN (20:46)
--- NOTE | 2021-02-16 20:50 | NUR ---
Accu check [id number]; patient refused to receive 6 units Hum R as coverage and wants 4 units instead. As per patient he had shakes in the morning when he received the coverage and states 6units is too much. Call placed to Dr. Phillips's exchange again.
--- NOTE | 2021-02-16 21:38 | NUR ---
Dr. Phillips called back; informed of patient's status and refusal of HS Hum R coverage. Order received to give 4 units Hum R one dose as coverage for BS 265. Dose given. Snacks provided per patient's request.
[2021-02-16] MEDS ORDERED: INSULIN REGULAR, HUMAN 300 UNIT/3 ML VIAL SQ SCH (21:45)
[2021-02-17 00:21] VITALS: BP 144/67
[2021-02-17 04:16] VITALS: BP 126/74
--- NOTE | 2021-02-17 04:45 | NUR ---
Patient called; states he feels like he's hypoglycemic and wants a candy. Accu check [id number]. Hermann crackers and apple juice given per patient's request.
[2021-02-17] MEDS: BLOOD SUGAR DIAGNOSTIC 1 EACH STRIP VI SCH ×4 (06:11→21:45)
[2021-02-17 06:35] LABS: BASOPHILS % (AUTO) 0.7 % (0.0-2.0); EOSINOPHILS # (AUTO) 0.1 K/uL (0.0-0.7); EOSINOPHILS % (AUTO) 2.2 % (0.0-7.0); HEMATOCRIT 35.9 % (36.7-47.1); HEMOGLOBIN 11.7 g/dL (12.5-16.3); LYMPHOCYTES # (AUTO) 1.5 K/uL (20.0-40.0); LYMPHOCYTES % (AUTO) 23.3 % (20.5-51.5); MEAN CORPUSCULAR HEMOGLOBIN 27.1 uug (23.8-33.4); MEAN CORPUSCULAR HGB CONC 33 g/dL (32.5-36.3); MEAN CORPUSCULAR VOLUME 83.3 fL (73.0-96.2); MONOCYTES # (AUTO) 0.6 K/uL (2.0-10.0); MONOCYTES % (AUTO) 9.5 % (0.0-11.0); NEUTROPHILS % (AUTO) 64.3 % (38.5-71.5); PLATELET COUNT (AUTO) 204 K/uL (152-348); RED BLOOD CELL COUNT(AUTO) 4.31 MIL/uL (4.06-5.63); WHITE BLOOD COUNT (AUTO) 6.3 K/uL (3.6-10.2)
--- NOTE | 2021-02-17 06:39 | NUR ---
Slept well during the night. VS stable. Am accu [id number]=[id number]
[2021-02-17 06:58] LABS: IRON, SERUM 42 ug/dL (50-175)
[2021-02-17 07:29] LABS: FERRITIN 57 ng/mL (26-388)
[2021-02-17 08:00] VITALS: BP 158/74
--- NOTE | 2021-02-17 08:00 | NUR ---
RECEIVED PATIENT AWAKE ALERT AND ORIENTED AMBULATORY TO DESIRED DESTINATIONS DENIES PAIN OR DISCOMFORTS AT THIS TIME CALL LIGHTS AND PERSONAL BELONGINGS ARE WITHIN EASY REACH WILL CONTINUE TO OBSERVE.
[2021-02-17] MEDS: INSULIN REGULAR, HUMAN 300 UNIT/3 ML VIAL SQ PRN ×4 (08:06→21:46)
[2021-02-17] MEDS: ASPIRIN EC 81 MG TABLET.DR PO SCH (08:08)
[2021-02-17] MEDS: CLOPIDOGREL 75 MG TABLET PO SCH (08:08)
[2021-02-17] MEDS: predniSONE 5 MG TABLET PO SCH (08:08)
[2021-02-17] MEDS: DOCUSATE SODIUM 100 MG CAPSULE PO SCH ×2 (08:08→21:21)
[2021-02-17] MEDS: CYCLOSPORINE MODIFIED 100 MG PO SCH (08:09)
[2021-02-17] MEDS: NIFEdipine XL 60 MG TABSR PO SCH ×2 (08:09→21:20)
[2021-02-17] MEDS: MYCOPHENOLATE MOFETIL 250 MG CAPSULE PO SCH ×2 (08:10→21:21)
[2021-02-17] MEDS: CITALOPRAM 20 MG TABLET PO SCH (08:10)
[2021-02-17] MEDS: VICTOZA 18 MG/3 ML SQ SCH (08:16)
[2021-02-17] MEDS ORDERED: TAMSULOSIN HCL 0.4 MG CAP.SR.24H PO SCH ×2 (08:23→21:00)
[2021-02-17 08:38] LABS: ALANINE AMINOTRANSFERASE 12 U/L (16-63); ALKALINE PHOSPHATASE 93 U/L (50-136); ASPARTATE AMINOTRANSFERASE 10 U/L (15-37); BILIRUBIN,TOTAL 0.3 mg/dL (0.2-1.0); CARBON DIOXIDE 23 mmol/L (21-32); CHLORIDE 101 mmol/L (98-107); CREATININE 3.2 mg/dL (0.6-1.3); GLUCOSE 179 mg/dL (74-106); POTASSIUM 4.4 mmol/L (3.5-5.1); TOTAL PROTEIN, SERUM 6.8 g/dL (6.4-8.2)
[2021-02-17 08:43] LABS: UREA NITROGEN, BLOOD 91 mg/dL (7-18)
[2021-02-17] MEDS: FINASTERIDE 5 MG TABLET PO SCH (08:58)
[2021-02-17] MEDS ORDERED: IV NS 1000 ML 1,000 ML IV PRN (09:00)
--- NOTE | 2021-02-17 11:30 | NUR ---
PATIENT SEEN AND EXAMINED BY DR ZIMMERMAN WITH NEW ORDERS AND NOTED.NO S/S OF HYPO/HYPERGLYCEMIC REACTIONS AT THIS TIME REMAIN ON BLOOD SUGAR CHECKS WITH INSULIN PER SLIDING SCALE COVERAGE ORDERED.
[2021-02-17 12:00] VITALS: BP 141/72
--- NOTE | 2021-02-17 12:00 | NUR ---
DR ARTIS HERE AND SEEN PATIENT WITH NEW ORDERS AND NOTED.
[2021-02-17] MEDS ORDERED: CYCLOSPORINE MODIFIED PO SCH (14:36)
--- NOTE | 2021-02-17 15:28 | NUR ---
PATIENT IS UP AND AMBULATORY IN THE HALLWAY WALKING WITH THE IV POLE WITH IVF OF NS AT 50ML/H WITH NO S/S OF INFILTERATION ON SITE NOT IN DISTRESS AT THIS TIME.
[2021-02-17 16:32] VITALS: BP 132/74
[2021-02-17] MEDS: CYCLOSPORINE MODIFIED PO SCH ×3 (16:39→21:22)
--- NOTE | 2021-02-17 17:16 | NUR ---
PATIENT STATED TAKES GENGRAFT EVERY 12 HOURS NOT BID WILL INFORM THE PHARMACIST.
--- NOTE | 2021-02-17 19:00 | NUR ---
received patient awake , ambulatory , ns at 50 ml / hr running ,denies distress
[2021-02-17 20:00] VITALS: BP_SYST 135; BP_SYST 140; BP_DIAS 54; BP_DIAS 63
[2021-02-17] MEDS: ATORVASTATIN 10 MG TABLET PO SCH (21:20)
[2021-02-17] MEDS: LORAZEPAM 1 MG TABLET PO PRN (23:05)
[2021-02-18] VITALS: BP_SYST 133; BP_SYST 140; BP_DIAS 54; BP_DIAS 63
[2021-02-18 04:00] VITALS: BP 144/74
[2021-02-18] MEDS: BLOOD SUGAR DIAGNOSTIC 1 EACH STRIP VI SCH (05:58)
[2021-02-18] MEDS: INSULIN REGULAR, HUMAN 300 UNIT/3 ML VIAL SQ PRN (05:59)
[2021-02-18] MEDS ORDERED: Ergocalciferol PO (06:56)
[2021-02-18] MEDS ORDERED: CALC0.5C11 PO (06:56)
[2021-02-18] MEDS ORDERED: TAMS-3 PO (06:56)
[2021-02-18] MEDS ORDERED: FINA5TAB11 PO (06:56)
--- NOTE | 2021-02-18 07:40 | NUR ---
Received patient in bed awake and sitting on chair. Denies pain. Patient was seen walking in the hallway earlier. Denies sob. IV on right arm intact and patent, hydration tolerated. Patient verbalized he's feeling much better. No complaints. He's comfortable. Call light in reach. Continue to be monitored.
[2021-02-18 08:36] VITALS: BP 147/63
[2021-02-18] MEDS: FINASTERIDE 5 MG TABLET PO SCH (08:37)
[2021-02-18] MEDS: DOCUSATE SODIUM 100 MG CAPSULE PO SCH (08:37)
[2021-02-18] MEDS: ASPIRIN EC 81 MG TABLET.DR PO SCH (08:37)
[2021-02-18] MEDS: CITALOPRAM 20 MG TABLET PO SCH (08:37)
[2021-02-18 08:38] VITALS: BP 147/63
[2021-02-18] MEDS: CLOPIDOGREL 75 MG TABLET PO SCH (08:38)
[2021-02-18] MEDS: predniSONE 5 MG TABLET PO SCH (08:38)
[2021-02-18] MEDS: NIFEdipine XL 60 MG TABSR PO SCH (08:38)
[2021-02-18] MEDS: MYCOPHENOLATE MOFETIL 250 MG CAPSULE PO SCH (08:41)
[2021-02-18] MEDS: CYCLOSPORINE MODIFIED PO SCH (08:51)
[2021-02-18 09:06] LABS: COMPLEMENT, C3 SERUM 101 mg/dL (82-167); COMPLEMENT, C4 SERUM 18 mg/dL (12-38)
[2021-02-18] MEDS: VICTOZA 18 MG/3 ML SQ SCH (09:06)
--- NOTE | 2021-02-18 10:44 | NUR ---
Patient is discharged to home. Alert oriented x4. Afebrile. Denies pain or shortness of breath. Denies chills, nausea or vomiting. He is looking forward to going home. Patient teaching on medications done. He verbalized understanding of medications, verbalized will continue with old medications as ordered. He said he will go to his primary doctor tomorrow. Belongings are inventoried by both hospital cna and patient, all in good condition. Patient was given back his medications Cyclosporine and Victoza verified by patient. Skin check noted intact. Patient verbalized he received both pneumonia and flu vaccines last year. Removed IV on right arm, minimal bleeding. Removed name tag. Patient said his was supposed to pick him up but she ended up working. He insisted he is able to drive and that his vehicle is in the parking lot downstairs. Patient discharged in stable condition. Charge nurse aware.
[2021-02-18 14:32] LABS: CALCITRIOL VIT D,1,25 DIHYDROX 29.8
== END 2021-02-18 10:45 | disposition home or self-care (01) | DRG 683 ==
LOC: ER 00:38 → TELE3 02:24
PROVIDERS: ADMIT Internal Medicine Nephrology; ATTEND Internal Medicine
DX: N17.0 Acute kidney failure with tubular necrosis (principal); I50.32 Chronic diastolic (congestive) heart failure; J90 Pleural effusion, not elsewhere classified; J98.11 Atelectasis; D84.9 Immunodeficiency, unspecified; D62 Acute posthemorrhagic anemia; I13.2 Hypertensive heart and chronic kidney disease with heart failure and with stage 5 chronic kidney disease, or end stage renal disease; N18.6 End stage renal disease; N18.9 Chronic kidney disease, unspecified; E11.22 Type 2 diabetes mellitus with diabetic chronic kidney disease; Z86.73 Personal history of transient ischemic attack (TIA), and cerebral infarction without residual deficits; Z20.822 Contact with and (suspected) exposure to COVID-19; Z88.1 Allergy status to other antibiotic agents; Z88.2 Allergy status to sulfonamides; Z79.82 Long term (current) use of aspirin; Z79.899 Other long term (current) drug therapy; D63.8 Anemia in other chronic diseases classified elsewhere; E78.5 Hyperlipidemia, unspecified; E11.65 Type 2 diabetes mellitus with hyperglycemia; E83.51 Hypocalcemia; I70.0 Atherosclerosis of aorta; K21.9 Gastro-esophageal reflux disease without esophagitis; Z82.3 Family history of stroke; Z99.2 Dependence on renal dialysis; Z66 Do not resuscitate; E86.1 Hypovolemia; F17.200 Nicotine dependence, unspecified, uncomplicated; Z79.84 Long term (current) use of oral hypoglycemic drugs; Z80.9 Family history of malignant neoplasm, unspecified
CPT/HCPCS: 36415; 70030-TC; 71045; 76604; 76770; 82652; 83550; 83690; 83735; 83970; 84100; 85025; 86160; 87086; 93005; G0378; J0360; J1815; J1940; J3475; J7030; J7512; J7517

== ENCOUNTER 2021-08-12 14:09 | Inpatient (IN) | payer MEDICARE, OTHER ==
[~2021-08-12] VITALS: Ht 162.6 cm; Wt 78.5 kg
[~2021-08-12 14:09] MED LIST changes: +ATOR10TA PO; -ATOR20TA PO; +CALC0.5C11 PO; +CLON1PAT2 TD; +CLOP75TA33 PO; +Ergocalciferol PO; +FINA5TAB11 PO; -FURO20TA4 PO; +HYDR100T27 PO; +PRIM50TA5 GT; +TAMS-3 PO
[2021-08-12 15:25] LABS: HEMATOCRIT 24.1 % (36.7-47.1); MEAN CORPUSCULAR HEMOGLOBIN 28.7 uug (23.8-33.4); MEAN CORPUSCULAR VOLUME 86.6 fL (73.0-96.2); PLATELET COUNT (AUTO) 264 K/uL (152-348)
[2021-08-12 15:47] LABS: CARBON DIOXIDE 17 mmol/L (21-32); CHLORIDE 99 mmol/L (98-107); CREATININE 3.7 mg/dL (0.6-1.3); GLUCOSE 110 mg/dL (74-106); POTASSIUM 4.6 mmol/L (3.5-5.1)
[2021-08-12 15:49] LABS: UREA NITROGEN, BLOOD 108 mg/dL (7-18)
--- NOTE | 2021-08-12 16:00 | NUR ---
PT IS IN ROOM #1A. DR RODRIGUEZ EVALUATED THE PT.
[2021-08-12] MEDS ORDERED: FUROSEMIDE 40 MG/4 ML VIAL IV ONE ×2 (16:15→16:45)
[2021-08-12] MEDS ORDERED: FUROSEMIDE 40 MG/4 ML VIAL ONE ×2 (18:00)
--- NOTE | 2021-08-12 20:14 | NUR ---
Pt refusing wood catheter at the time, states he is able to use the restroom.
[2021-08-12] MEDS ORDERED: ERGOCALCIFEROL 50000 UNIT PO SCH (22:30)
[2021-08-12] MEDS ORDERED: hydrALAZINE HCL 25 MG TABLET PO PRN (22:30)
[2021-08-12] MEDS ORDERED: ONDANSETRON 4 MG/2 ML VIAL IV PRN (22:30)
[2021-08-12 23:57] VITALS: BP 159/80
--- NOTE | 2021-08-13 | NUR ---
patient arrived onto unit from ED. A&Ox4 upon assessemeny
--- NOTE | 2021-08-13 | NUR ---
patient arrived onto unit from ED. A/Ox4 upon initial assessment. On 4L O2 via NC, saturating at 97%. Acute dyspnea noted. Right AC IV 18 gauge patent and flushed. Assisted to the restroom and needs. Sukhi light within reach, will continue to monitor
[2021-08-13] MEDS: CITALOPRAM 20 MG TABLET PO SCH ×2 (00:15→09:15)
[2021-08-13] MEDS ORDERED: CITALOPRAM 20 MG TABLET ONE (00:55)
[2021-08-13] MEDS: PRIMIDONE 50 MG TABLET PO SCH ×2 (01:44→09:42)
[2021-08-13] MEDS: MORPHINE SULFATE 2 MG/1 ML DISP.SYRIN IV PRN (03:19)
[2021-08-13 04:20] VITALS: BP 164/73
[2021-08-13] MEDS: ACETAMINOPHEN 325 MG TABLET PO PRN ×2 (06:09→16:46)
[2021-08-13] MEDS: PANTOPRAZOLE SODIUM 40 MG TABLET.DR PO SCH (06:09)
[2021-08-13 06:43] LABS: HEMATOCRIT 25.6 % (36.7-47.1); MEAN CORPUSCULAR HEMOGLOBIN 28.2 uug (23.8-33.4); MEAN CORPUSCULAR VOLUME 86.1 fL (73.0-96.2); PLATELET COUNT (AUTO) 285 K/uL (152-348)
[2021-08-13 07:26] LABS: ALANINE AMINOTRANSFERASE 20 U/L (16-63); ALKALINE PHOSPHATASE 89 U/L (50-136); ASPARTATE AMINOTRANSFERASE 14 U/L (15-37); BILIRUBIN,TOTAL 0.4 mg/dL (0.2-1.0); CARBON DIOXIDE 17 mmol/L (21-32); CHLORIDE 99 mmol/L (98-107); CHOLESTEROL 187 mg/dL (<200); CREATININE 3.2 mg/dL (0.6-1.3); GLUCOSE 119 mg/dL (74-106); HDL CHOLESTEROL 49 mg/dL (40-60); MAGNESIUM 1.9 mg/dL (1.8-2.4); PHOSPHOROUS 6.6 mg/dL (2.5-4.9); POTASSIUM 4.8 mmol/L (3.5-5.1); TOTAL PROTEIN, SERUM 7.4 g/dL (6.4-8.2); TRIGLYCERIDES 107 MG/DL (30-150)
[2021-08-13 07:50] LABS: UREA NITROGEN, BLOOD 105 mg/dL (7-18)
[2021-08-13] MEDS ORDERED: BISACODYL 5 MG TABLET.DR PO PRN (08:15)
[2021-08-13 08:18] LABS: THYROID STIMULATING HORMONE 1.151 mIU/mL (0.358-3.740)
[2021-08-13] MEDS ORDERED: CYCLOSPORINE MODIFIED 100 MG PO SCH (09:00)
--- NOTE | 2021-08-13 09:00 | NUR ---
RECEIVED AWAKE ALERT AND ORIENTED DENIES PAIN OR DISCOMFORTS HE IS ON O2 AT 4L/M BY NASAL CANULA WITH NO S/S OF SOB AT THIS TIME.CALL LIGHTS AND HIS PERSONAL BELONGINGS ARE WITHIN EASY REACH WILL CONTINUE TO OBSERVE.
[2021-08-13] MEDS: CLOPIDOGREL 75 MG TABLET PO SCH (09:15)
[2021-08-13] MEDS: ASPIRIN EC 81 MG TABLET.DR PO SCH (09:16)
[2021-08-13] MEDS: predniSONE 5 MG TABLET PO SCH (09:16)
[2021-08-13] MEDS: FINASTERIDE 5 MG TABLET PO SCH (09:16)
[2021-08-13] MEDS: DOCUSATE SODIUM 100 MG CAPSULE PO SCH ×2 (09:16→20:25)
[2021-08-13] MEDS: CALCITRIOL 0.25 MCG CAPSULE PO SCH (09:16)
[2021-08-13] MEDS: FUROSEMIDE 40 MG/4 ML VIAL IV SCH ×2 (09:17→20:24)
[2021-08-13] MEDS: MYCOPHENOLATE MOFETIL 250 MG CAPSULE PO SCH ×2 (09:17→20:25)
[2021-08-13] MEDS: NIFEdipine XL 60 MG TABSR PO SCH ×2 (09:18→16:45)
[2021-08-13] MEDS: [UNRECOGNIZED DRUG - OTHER] PO SCH ×2 (10:48→17:36)
[2021-08-13] MEDS: CYCLOSPORINE 100 MG PO SCH ×2 (10:48→17:36)
[2021-08-13 11:44] VITALS: BP 147/70
[2021-08-13] MEDS ORDERED: CLONIDINE TTS 2 PATCH TD SCH ×2 (12:00→21:15)
--- NOTE | 2021-08-13 13:00 | NUR ---
CALLED DR PERFECTO GARIBAY PATIENT IS ASKING FOR INSULIN STATED THAT HE TAKES INSULIN AND BLOOD SUGAR CHECKS AT HOME MD STATED OK WILL ORDER.
[2021-08-13 16:00] VITALS: BP 114/58
--- NOTE | 2021-08-13 16:46 | NUR ---
PATIENT C/O HAS MILD PAIN MEDICATED WITH TYLENOL ORDERED HE IS SITTING UP ON THE CHAIR AT THIS TIME WILL OBSERVE.
--- NOTE | 2021-08-13 18:23 | NUR ---
ORDER NOTED FOR BLOOD SUGAR CHECKIS FROM DR GROVE WILL ENDORSE.NO S/S OF HYPO/HYPERGLYCEMIC REACTIONS AT THIS TIME
--- NOTE | 2021-08-13 19:30 | NUR ---
RECEIVED PT AWAKE, ALERT AND ORIENTEDX4. PT IN NO ACUTE DISTRESS. IV INTACT. SAFETY AND COMFORT PROVIDED. WILL CONTINUE TO MONITOR.
[2021-08-13] MEDS ORDERED: DULA0.75 SQ (20:13)
[2021-08-13 20:25] VITALS: BP 122/56
[2021-08-13] MEDS: TAMSULOSIN HCL 0.4 MG CAP.SR.24H PO SCH (20:25)
[2021-08-13] MEDS: ATORVASTATIN 10 MG TABLET PO SCH (20:25)
[2021-08-13] MEDS: BLOOD SUGAR DIAGNOSTIC 1 EACH STRIP VI SCH (20:26)
[2021-08-13] MEDS: INSULIN REGULAR, HUMAN 300 UNITS/3 ML VIAL SQ PRN (20:29)
[2021-08-13] MEDS ORDERED: PRIMIDONE 50 MG TABLET PO SCH (21:15)
[2021-08-14 00:05] VITALS: BP 126/60
[2021-08-14] MEDS: MORPHINE SULFATE 2 MG/1 ML DISP.SYRIN IV PRN (01:25)
--- NOTE | 2021-08-14 01:57 | NUR ---
PT GIVEN MORPHINE 2MG AT 0125H FOR GENERALIZED PAIN. PT TOLERATED IT WELL. WILL CONTINUE TO MONITOR.
[2021-08-14 04:20] VITALS: BP 111/64
[2021-08-14] MEDS: PANTOPRAZOLE SODIUM 40 MG TABLET.DR PO SCH (06:01)
--- NOTE | 2021-08-14 06:30 | NUR ---
PT SLEPT INTERMITTENTLY. PT IN NO ACUTE DISTRESS. IV INTACT. PT ON 4L NASAL CANNULA. PT IN NO ACUTE DISTRESS. PT STABLE.PT ON SINUS RHYTHM. PT BLOOD SUGAR WAS 82. SAFETY AND COMFORT PROVIDED. ALL NEEDS ARE MET. WILL ENDORSE TO INCOMING NURSE FOR CONTINUITY OF CARE.
[2021-08-14] MEDS: BLOOD SUGAR DIAGNOSTIC 1 EACH STRIP VI SCH ×4 (06:33→20:46)
--- NOTE | 2021-08-14 07:30 | NUR ---
RECEIVED PATIENT IN BED AWAKE ALERT AND ORIENTED DENIES PAIN OR DISCOMFORTS REMAIN ON O2 AT 4L/M BY NASAL CANULA WITH NO SHORTNESS OF BREATH AT THIS TIME VOIDING FAIRLY WELL CALL LIGHTS AND PERSONAL BELONGINGS ARE WITHIN EASY REACH MADE COMFORTABLE AND WILL CONTINUE TO OBSERVE.
[2021-08-14 08:08] LABS: CARBON DIOXIDE 19 mmol/L (21-32); CHLORIDE 99 mmol/L (98-107); CREATININE 3.4 mg/dL (0.6-1.3); GLUCOSE 105 mg/dL (74-106); PHOSPHOROUS 7.3 mg/dL (2.5-4.9)
[2021-08-14 08:10] LABS: UREA NITROGEN, BLOOD 108 mg/dL (7-18)
[2021-08-14] MEDS ORDERED: ERGOCALCIFEROL 50,000 UNIT CAPSULE PO SCH (09:00)
[2021-08-14] MEDS: NIFEdipine XL 60 MG TABSR PO SCH ×2 (09:17→16:35)
[2021-08-14] MEDS: ASPIRIN EC 81 MG TABLET.DR PO SCH (09:17)
[2021-08-14] MEDS: CLOPIDOGREL 75 MG TABLET PO SCH (09:17)
[2021-08-14] MEDS: FINASTERIDE 5 MG TABLET PO SCH (09:17)
[2021-08-14] MEDS: predniSONE 5 MG TABLET PO SCH (09:17)
[2021-08-14] MEDS: CITALOPRAM 20 MG TABLET PO SCH (09:17)
[2021-08-14] MEDS: DOCUSATE SODIUM 100 MG CAPSULE PO SCH ×2 (09:17→20:35)
[2021-08-14] MEDS: MYCOPHENOLATE MOFETIL 250 MG CAPSULE PO SCH ×2 (09:18→20:35)
[2021-08-14] MEDS: CYCLOSPORINE 100 MG PO SCH ×2 (09:18→16:35)
[2021-08-14] MEDS: [UNRECOGNIZED DRUG - OTHER] PO SCH ×2 (09:18→16:35)
[2021-08-14] MEDS: FUROSEMIDE 40 MG/4 ML VIAL IV SCH ×2 (09:18→20:35)
[2021-08-14] MEDS: CALCITRIOL 0.25 MCG CAPSULE PO SCH (09:19)
--- NOTE | 2021-08-14 09:54 | NUR ---
PATIENT STATED THAT HIS NOSTRILS IS DRY HAS BEEN ON O2 BY NASAL CANULA SO HUMIDIFIER APPLIED AND PATIENT STATED FEELING BETTER.
[2021-08-14] MEDS: INSULIN REGULAR, HUMAN 300 UNIT/3 ML VIAL SQ PRN ×2 (11:19→16:39)
[2021-08-14 11:44] VITALS: BP 120/63
--- NOTE | 2021-08-14 12:47 | NUR ---
NOTED PATIENT IS HAVING EXPIRATORY WHEEZES AND C/O SOB WITH EXERSION BUT HIS SAT IS AT 94-95 PERCENT WITH O2 AT 4L/M PATIENT HAS NO NEBULIZING MEDICATIONS CALLED AND NOTIFIED DR GROVE WITH NO NEW ORDERS AT THIS TIME
--- NOTE | 2021-08-14 13:09 | NUR ---
DR GROVE RETURNED CALL WITH NEW ORDERS AND NOTED RESP THERAPIST NOTIFIED.
--- NOTE | 2021-08-14 13:18 | NUR ---
MULTIPLE IV ATTEMPTS PATIENT IS ON IV LASIX AWARE WITH NEW ORDER TO INSERT A MIDLINE SENIOR SCIENTIST NOTIFIED WILL SEND THE MIDLINE RN.
[2021-08-14] MEDS: ALBUTEROL SULFATE 2.5 MG/ 0.5 ML NEBU NEB PRN ×3 (13:31→23:46)
--- NOTE | 2021-08-14 13:46 | NUR ---
MID LINE INSERTED TO HIS LEFT UPPER ARM GAUGE 18 AND PATIENT TOLERATED WELL
[2021-08-14 16:00] VITALS: BP 124/65
[2021-08-14] MEDS: BISACODYL 5 MG TABLET.DR PO PRN (16:35)
--- NOTE | 2021-08-14 18:00 | NUR ---
PATIENT STATED FEELING BETTER AFTER THE HAND HELD NEBULIZER TREATMENT O2 IN PROGRESS ORDERED WAS MEDICATED WITH DULCOLAX TAB FOR C/O CONSTIPATION WITH CHECK EFFECTIVENESS.RESTING AND NO C/O AT THIS TIME WILL CONTINUE TO OBSERVE.
--- NOTE | 2021-08-14 18:50 | NUR ---
PATIENT IS NOW STATING THAT HE HAS BEEN UNABLE TO MOVE HIS BOWEL DESPITE THE DULCOLAX PRUNE JUICE GIVEN AT THIS TIME AND THE PLAN IS TO TAKE HIM TO THE BATHROOM WITH A LONG O2 CORD AND HE WILL SEAT ON THE TOILET AND HOPEFULLY WITH GRAVITY HE WILL BE ABLE TO MOVE HIS BOWEL WILL ENDORSE AND IF NEEDED WILL NOTIFY DR GROVE FOR MORE INTERVENTION.
--- NOTE | 2021-08-14 19:30 | NUR ---
Patient AO x 4, resting in bed with breathing tx, NC on 4L with humidifier saturating at 99%, SR on tele monitor, informed pt. about medications and the importance of his bowel movement, Midline ALANA intact and patent. Call lights within reach, safety measures initiated, belongs placed by bedside.
[2021-08-14 20:10] VITALS: BP 113/64
[2021-08-14] MEDS: TAMSULOSIN HCL 0.4 MG CAP.SR.24H PO SCH (20:34)
[2021-08-14] MEDS: ATORVASTATIN 10 MG TABLET PO SCH (20:35)
[2021-08-14] MEDS: INSULIN GLARGINE,HUM 300 UNITS/3 ML CARTRIDGE SQ SCH (20:48)
[2021-08-14] MEDS: INSULIN REGULAR, HUMAN 300 UNITS/3 ML VIAL SQ PRN (20:50)
[2021-08-15 00:17] VITALS: BP 129/68
[2021-08-15 04:35] VITALS: BP 144/71
--- NOTE | 2021-08-15 05:53 | NUR ---
Patient slept poorly, AO x 4, on 4L NC with humidifier saturating at 95%, SR on NC with 93 HR, anxious throughout the night, semi-coyne position, educated pt importance of BM, gave prune juice, no bowel movement, uneventful night. Call lights within reach, safety measures maintained. Will endorse to am shift.
[2021-08-15] MEDS: BISACODYL 5 MG TABLET.DR PO PRN (06:14)
[2021-08-15] MEDS: PANTOPRAZOLE SODIUM 40 MG TABLET.DR PO SCH (06:14)
[2021-08-15] MEDS: BLOOD SUGAR DIAGNOSTIC 1 EACH STRIP VI SCH ×4 (06:16→21:00)
[2021-08-15 06:57] LABS: CARBON DIOXIDE 20 mmol/L (21-32); CHLORIDE 97 mmol/L (98-107); CREATININE 3.7 mg/dL (0.6-1.3); GLUCOSE 135 mg/dL (74-106); POTASSIUM 4.3 mmol/L (3.5-5.1)
[2021-08-15] MEDS: ALBUTEROL SULFATE 2.5 MG/ 0.5 ML NEBU NEB PRN ×3 (07:15→20:37)
--- NOTE | 2021-08-15 07:30 | NUR ---
RECEIVED PATIENT IN BED AWAKE ALERT WITH HAND HELD NEBULIZER IN PROGRESS AT THIS TIME STATED STILL DID NOT MOVE HIS BOWEL FEELS LIKE ITS COMING ABDOMEN IS BIG BUT NOT DISTENDED CALL LIGHTS AND PERSONAL BELONGINGS ARE WITHIN EASY REACH WILL CONTINUE TO OBSERVE.
[2021-08-15 07:49] LABS: UREA NITROGEN, BLOOD 115 mg/dL (7-18)
[2021-08-15] MEDS: INSULIN REGULAR, HUMAN 300 UNIT/3 ML VIAL SQ PRN ×2 (08:08→16:28)
[2021-08-15] MEDS: CITALOPRAM 20 MG TABLET PO SCH (08:09)
[2021-08-15] MEDS: predniSONE 5 MG TABLET PO SCH (08:09)
[2021-08-15] MEDS: NORMAL SALINE NASAL 45 ML BOTTLE NS PRN ×3 (08:09→22:06)
[2021-08-15] MEDS: FINASTERIDE 5 MG TABLET PO SCH (08:09)
[2021-08-15] MEDS: DOCUSATE SODIUM 100 MG CAPSULE PO SCH ×2 (08:10→22:11)
[2021-08-15] MEDS: FUROSEMIDE 40 MG/4 ML VIAL IV SCH ×2 (08:10→23:24)
[2021-08-15] MEDS: CLOPIDOGREL 75 MG TABLET PO SCH (08:10)
[2021-08-15] MEDS: ASPIRIN EC 81 MG TABLET.DR PO SCH (08:10)
[2021-08-15] MEDS: [UNRECOGNIZED DRUG - OTHER] PO SCH ×2 (08:12→16:18)
[2021-08-15] MEDS: MYCOPHENOLATE MOFETIL 250 MG CAPSULE PO SCH ×2 (08:12→22:03)
[2021-08-15] MEDS: CYCLOSPORINE 100 MG PO SCH ×2 (08:12→16:18)
[2021-08-15] MEDS: CALCITRIOL 0.25 MCG CAPSULE PO SCH (08:12)
[2021-08-15] MEDS: NIFEdipine XL 60 MG TABSR PO SCH ×2 (08:13→16:19)
[2021-08-15] MEDS: IPRATROPIUM BROMIDE NASAL 15 ML BOTTLE 42 MCG/SPRAY NS SCH ×3 (08:26→22:06)
[2021-08-15] MEDS: ACETAMINOPHEN 325 MG TABLET PO PRN (10:12)
--- NOTE | 2021-08-15 10:13 | NUR ---
SITTING UP ON THE CHAIR STATED THAT HE HAD A BOWEL MOVEMENT DID NOT HAVE HIS O2 ON REAPPLIED AND STATED HAVING PAINS IN THE BACK MEDICATED WITH TYLENOL NOTIFIED OF NEED FOR URINE STATED WILL LET ME KNOW SOON HE IS ABLE TO GET A SPECIMEN.
[2021-08-15 11:23] VITALS: BP 146/63
[2021-08-15] MEDS: METOLAZONE 2.5 MG TABLET PO SCH (13:17)
[2021-08-15 13:25] LABS: *BILIRUBIN,URIN NEGATIVE (NEGATIVE); *BLOOD, URINE NEGATIVE (NEGATIVE); *CLARITY,URINE CLEAR (CLEAR); *COLOR,URINE YELLOW (YELLOW); *KETONES,URINE NEGATIVE (NEGATIVE); *UROBILINOGEN,URINE 0.2 E.U./dl (NORMAL); LEUKOCYTE ESTERASE ,URINE NEGATIVE (NEGATIVE); NITRITE, URINE NEGATIVE (NEGATIVE); UGLUCOSE NEGATIVE (NEGATIVE)
--- NOTE | 2021-08-15 13:29 | NUR ---
NEW ORDERS FROM DR GROVE RECEIVED AND CARRIED OUT URINE SPECIMEN OBTAINED AND SENT TO THE LAB ORDERED.
[2021-08-15 15:38] VITALS: BP 122/60
--- NOTE | 2021-08-15 17:05 | NUR ---
RESULT OF THE CXR THAT WAS ORDERED BY DR VAZQUEZ CALLED INTO DR GROVE WITH NO NEW ORDERS AT THIS TIME
--- NOTE | 2021-08-15 17:36 | NUR ---
RESTING STATED FEELS BETTER VOIDING O2 AT 4L/M BY NASAL CANULA WITH DIMINISHED BREATH SOUNDS WHEEZING GETS BETTER WITH HAND HELD NEBULIZERS ORDERED WILL CONTINUE TO OBSERVE.
[2021-08-15 20:15] VITALS: BP 135/62
[2021-08-15] MEDS: TAMSULOSIN HCL 0.4 MG CAP.SR.24H PO SCH (22:07)
[2021-08-15] MEDS: INSULIN GLARGINE,HUM 300 UNITS/3 ML CARTRIDGE SQ SCH (22:07)
[2021-08-15] MEDS: ATORVASTATIN 10 MG TABLET PO SCH (22:07)
[2021-08-15] MEDS: INSULIN REGULAR, HUMAN 300 UNITS/3 ML VIAL SQ PRN (22:10)
[2021-08-16] MEDS: ACETAMINOPHEN 325 MG TABLET PO PRN
--- NOTE | 2021-08-16 | NUR ---
patient stated to nurse that he has insomnia and takes ambien at home, 10 mg every other day. the calibration checker provider was able to give a 1x order for 10 mg ambien. the medication was effective. plan of care entered and will monitor closely
[2021-08-16 00:09] VITALS: BP 116/58
[2021-08-16] MEDS ORDERED: ZOLPIDEM 5 MG TABLET PO ONE (00:30)
[2021-08-16 04:11] VITALS: BP 139/78
[2021-08-16] MEDS: NORMAL SALINE NASAL 45 ML BOTTLE NS PRN ×2 (04:34→15:43)
--- NOTE | 2021-08-16 04:36 | NUR ---
hypoglycemic event- patient asking for cookies and candy to eat. BOAT AND PLANT UTILITY SUPERVISOR gave him grapes to snack on. then the circus rider reported to the nurse what had occurred and added that the patient appeared sweaty and felt clammy.capillary BG was checked at bedside and was 43. patient was able to sit up and swallow. he was able to drink 360cc of orange juice. an ordere for a stat random glucose was placed. a plan of care was put in place and will be monitored closely Addendum: 08/16/21 at 0534 by [facility] RN6 RN random glucose is 68, consulted with charge and D50 will be given per order Addendum: 08/16/21 at 0704 by [facility] RN6 RN blood glucose at 0650 is 218
[2021-08-16 05:06] LABS: MEAN CORPUSCULAR HEMOGLOBIN 28.4 uug (23.8-33.4); MEAN CORPUSCULAR VOLUME 86.8 fL (73.0-96.2); PLATELET COUNT (AUTO) 272 K/uL (152-348)
[2021-08-16 05:34] LABS: CARBON DIOXIDE 20 mmol/L (21-32); CHLORIDE 100 mmol/L (98-107); CREATININE 3.7 mg/dL (0.6-1.3); GLUCOSE 68 mg/dL (74-106); POTASSIUM 3.6 mmol/L (3.5-5.1)
[2021-08-16] MEDS: DEXTROSE 50% 50 ML DISP.SYRIN IV PRN ×2 (05:57→06:56)
[2021-08-16 05:59] LABS: UREA NITROGEN, BLOOD 117 mg/dL (7-18)
[2021-08-16] MEDS: IPRATROPIUM BROMIDE NASAL 15 ML BOTTLE 42 MCG/SPRAY NS SCH ×4 (06:07→21:25)
[2021-08-16] MEDS: PANTOPRAZOLE SODIUM 40 MG TABLET.DR PO SCH (06:57)
[2021-08-16] MEDS: BLOOD SUGAR DIAGNOSTIC 1 EACH STRIP VI SCH ×4 (06:57→20:20)
[2021-08-16 08:00] VITALS: BP 131/75
--- NOTE | 2021-08-16 08:00 | NUR ---
awake alert and oriented x3 with continuous o2 4l via nc saturating 95%. denies pain. sr on monitor. independent with bed mobility
[2021-08-16] MEDS: FUROSEMIDE 40 MG/4 ML VIAL IV SCH ×2 (08:57→20:22)
[2021-08-16] MEDS: CITALOPRAM 20 MG TABLET PO SCH (08:58)
[2021-08-16] MEDS: METOLAZONE 2.5 MG TABLET PO SCH (08:58)
[2021-08-16] MEDS: DOCUSATE SODIUM 100 MG CAPSULE PO SCH ×2 (08:58→20:21)
[2021-08-16] MEDS: ASPIRIN EC 81 MG TABLET.DR PO SCH (08:58)
[2021-08-16] MEDS: predniSONE 5 MG TABLET PO SCH (08:58)
[2021-08-16] MEDS: FINASTERIDE 5 MG TABLET PO SCH (08:58)
[2021-08-16] MEDS: CLOPIDOGREL 75 MG TABLET PO SCH (08:58)
[2021-08-16] MEDS: CALCITRIOL 0.25 MCG CAPSULE PO SCH (08:59)
[2021-08-16] MEDS: NIFEdipine XL 60 MG TABSR PO SCH ×2 (08:59→16:00)
[2021-08-16] MEDS: CYCLOSPORINE 100 MG PO SCH ×2 (09:03→16:01)
[2021-08-16] MEDS: [UNRECOGNIZED DRUG - OTHER] PO SCH ×2 (09:03→16:01)
[2021-08-16] MEDS: MYCOPHENOLATE MOFETIL 250 MG CAPSULE PO SCH ×2 (09:04→20:23)
[2021-08-16] MEDS: ALBUTEROL SULFATE 2.5 MG/ 0.5 ML NEBU NEB PRN ×2 (09:28→19:43)
[2021-08-16] MEDS: INSULIN REGULAR, HUMAN 300 UNIT/3 ML VIAL SQ PRN ×2 (11:58→16:16)
--- NOTE | 2021-08-16 12:00 | NUR ---
no acute change from morning assessment. continue plan of care
[2021-08-16 12:31] VITALS: BP 150/74
[2021-08-16 16:19] VITALS: BP 153/70
--- NOTE | 2021-08-16 17:20 | NUR ---
no hypo or hyperglycemia, patient still easily gets tired with sob, 4l nc under humidifier saturating 95%. sr on monitor
[2021-08-16 20:16] VITALS: BP 119/68
[2021-08-16] MEDS: TAMSULOSIN HCL 0.4 MG CAP.SR.24H PO SCH (20:21)
[2021-08-16] MEDS: ATORVASTATIN 10 MG TABLET PO SCH (20:21)
[2021-08-16] MEDS: INSULIN GLARGINE,HUM 300 UNITS/3 ML CARTRIDGE SQ SCH (21:00)
--- NOTE | 2021-08-16 21:15 | NUR ---
Patient sitting up on the chair, alert x4.O2 at 4LPM via NC saturation at 97%.Denies pain at this time.BS checked 44.OJ and snacks given.Assisted patient back to bed.Midline on left upper arm in place. Due meds given as ordered. Bs rechecked went up to 95.Urine collected and sent to lab.Patient was able to void well. Call light with in reach. Will continue to monitor.
[2021-08-17 00:05] VITALS: BP 129/67
[2021-08-17 01:05] LABS: *BILIRUBIN,URIN NEGATIVE (NEGATIVE); *BLOOD, URINE NEGATIVE (NEGATIVE); *CLARITY,URINE CLEAR (CLEAR); *COLOR,URINE YELLOW (YELLOW); *KETONES,URINE NEGATIVE (NEGATIVE); *UROBILINOGEN,URINE 0.2 E.U./dl (NORMAL); LEUKOCYTE ESTERASE ,URINE NEGATIVE (NEGATIVE); NITRITE, URINE NEGATIVE (NEGATIVE); UGLUCOSE NEGATIVE (NEGATIVE)
[2021-08-17 01:10] LABS: *CREATININE,URINE 61.2 mg/dL (30-125); *URINE TOTAL PROTEIN RANDOM 30.6 mg/dL (<150/24HR)
[2021-08-17] MEDS: ACETAMINOPHEN 325 MG TABLET PO PRN ×2 (02:20→17:22)
[2021-08-17 04:10] VITALS: BP 120/59
[2021-08-17] MEDS: IPRATROPIUM BROMIDE NASAL 15 ML BOTTLE 42 MCG/SPRAY NS SCH ×3 (06:08→21:14)
[2021-08-17] MEDS: PANTOPRAZOLE SODIUM 40 MG TABLET.DR PO SCH (06:13)
[2021-08-17] MEDS: BLOOD SUGAR DIAGNOSTIC 1 EACH STRIP VI SCH ×4 (06:33→21:04)
[2021-08-17 07:32] LABS: HEMATOCRIT 22.3 % (36.7-47.1); MEAN CORPUSCULAR HEMOGLOBIN 28.6 uug (23.8-33.4); MEAN CORPUSCULAR VOLUME 86.3 fL (73.0-96.2); PLATELET COUNT (AUTO) 248 K/uL (152-348)
[2021-08-17 07:52] LABS: CARBON DIOXIDE 23 mmol/L (21-32); CHLORIDE 98 mmol/L (98-107); CREATININE 3.5 mg/dL (0.6-1.3); GLUCOSE 233 mg/dL (74-106)
[2021-08-17 08:04] LABS: UREA NITROGEN, BLOOD 118 mg/dL (7-18)
[2021-08-17] MEDS: CLOPIDOGREL 75 MG TABLET PO SCH (08:18)
[2021-08-17] MEDS: METOLAZONE 2.5 MG TABLET PO SCH (08:18)
[2021-08-17] MEDS: DOCUSATE SODIUM 100 MG CAPSULE PO SCH ×2 (08:18→21:06)
[2021-08-17] MEDS: CITALOPRAM 20 MG TABLET PO SCH (08:19)
[2021-08-17] MEDS: INSULIN REGULAR, HUMAN 300 UNIT/3 ML VIAL SQ PRN ×2 (08:20→17:11)
[2021-08-17] MEDS: FUROSEMIDE 40 MG/4 ML VIAL IV SCH ×2 (08:22→21:06)
[2021-08-17] MEDS: predniSONE 5 MG TABLET PO SCH (08:25)
[2021-08-17] MEDS: CYCLOSPORINE 100 MG PO SCH ×2 (08:25→17:13)
[2021-08-17] MEDS: [UNRECOGNIZED DRUG - OTHER] PO SCH ×2 (08:25→17:13)
[2021-08-17] MEDS: FINASTERIDE 5 MG TABLET PO SCH (08:25)
[2021-08-17] MEDS: MYCOPHENOLATE MOFETIL 250 MG CAPSULE PO SCH ×2 (08:26→21:08)
[2021-08-17] MEDS: NIFEdipine XL 60 MG TABSR PO SCH ×3 (08:26→17:15)
[2021-08-17] MEDS: CALCITRIOL 0.25 MCG CAPSULE PO SCH (08:27)
[2021-08-17] MEDS: ASPIRIN EC 81 MG TABLET.DR PO SCH (08:29)
--- NOTE | 2021-08-17 09:48 | NUR ---
received sitting on the chair and watching tv. no resp distress. on 4 lpm nc o2 sat 95%. iv line intact and patent. denies pain. safety precautions in place. cont to monitor.
[2021-08-17 10:59] VITALS: BP 89/49
[2021-08-17] MEDS: NORMAL SALINE NASAL 45 ML BOTTLE NS PRN (11:06)
[2021-08-17] MEDS: ALBUTEROL SULFATE 2.5 MG/ 0.5 ML NEBU NEB PRN ×2 (11:29→19:14)
[2021-08-17] MEDS ORDERED: LATA2.5D15 OP (12:39)
[2021-08-17] MEDS ORDERED: DORZ10DR11 OP (12:39)
--- NOTE | 2021-08-17 12:40 | NUR ---
pt stated he has eye drops for glaucoma. verified with pharmacist alejandro at his outside pharmacy [facility] and informed on latanoprost both eyes qd and dorzolamide-timolol both eyes bid also. input on the system and md made aware. pt aware.
--- NOTE | 2021-08-17 15:12 | NUR ---
draw press operator bennie with order for 1 unit prbc noted and carried.
--- NOTE | 2021-08-17 15:29 | NUR ---
pt refused consent for blood transfusion at this time. at bedside aware. will f/up later
[2021-08-17 16:58] VITALS: BP 168/80
[2021-08-17] MEDS: PSEUDOEPHEDRINE HCL 30 MG TABLET PO PRN (17:22)
--- NOTE | 2021-08-17 18:40 | NUR ---
sitting on chair watching tv. still gets sob with exertion. remains on 4 lpm nc o2 sat 99%. no s/sx of hypo/hyperglycemia. sr on monitor. needs attended to. kept comfortable. safety precautions in place.
[2021-08-17 20:18] VITALS: BP 132/69
[2021-08-17] MEDS: TAMSULOSIN HCL 0.4 MG CAP.SR.24H PO SCH (21:06)
[2021-08-17] MEDS: ATORVASTATIN 10 MG TABLET PO SCH (21:06)
[2021-08-17] MEDS: LATANOPROST OPHT DROP 2.5 ML BOTTLE OP SCH (21:07)
[2021-08-17] MEDS: INSULIN REGULAR, HUMAN 300 UNITS/3 ML VIAL SQ PRN (21:30)
[2021-08-17] MEDS: INSULIN GLARGINE,HUM 300 UNITS/3 ML CARTRIDGE SQ SCH (21:30)
--- NOTE | 2021-08-17 22:11 | NUR ---
Patient in bed awake alert x 4.NSr on tele.Denies pain or discomfort at this time .On 4LPM via NC.No s/s of distress noted.Midline patent and intact on left upper arm .Lasix IVP given as ordered. Patient compliant with medications. Patient still refused blood transfusion .Stated he'll wait for tomorrow lab result.N.P Lobito and Silvino notified.Patient requesting for sleeping pill .N.p Silvino order Laila received noted and carried out.Call light with in reach. Will continue to monitor.
[2021-08-17] MEDS: ZOLPIDEM 5 MG TABLET PO PRN (22:22)
[2021-08-18 00:03] VITALS: BP 138/63
--- NOTE | 2021-08-18 03:09 | NUR ---
Patient awake appeared sweaty.No ALOC changed. Denies pain or discomfort.No acute distress noted. BS checked noted 37.Patient able to sit up .Offered OJ and snacks.Patient stated he feels better .Informed patient BS will be rechecked .Will closely monitor patient.
[2021-08-18 04:24] VITALS: BP 129/66
[2021-08-18] MEDS: IPRATROPIUM BROMIDE NASAL 15 ML BOTTLE 42 MCG/SPRAY NS SCH ×3 (05:34→22:00)
[2021-08-18] MEDS: PANTOPRAZOLE SODIUM 40 MG TABLET.DR PO SCH (06:17)
--- NOTE | 2021-08-18 06:25 | NUR ---
Patient resting in bed comfortably awake and able to make needs known. Bs rechecked went up to 198. Will endorse to morning shift.
[2021-08-18] MEDS: BLOOD SUGAR DIAGNOSTIC 1 EACH STRIP VI SCH ×4 (06:33→21:49)
[2021-08-18 07:28] LABS: HEMATOCRIT 24.2 % (36.7-47.1)
[2021-08-18] MEDS: ALBUTEROL SULFATE 2.5 MG/ 0.5 ML NEBU NEB PRN (07:51)
--- NOTE | 2021-08-18 07:57 | NUR ---
received awake watching tv. remains on 4 lpm nc o2 sat 95%. denies pain or sob. sr on monitor. safety precautions in place. comfortable. cont to monitor.
[2021-08-18] MEDS: INSULIN REGULAR, HUMAN 300 UNIT/3 ML VIAL SQ PRN ×4 (08:29→22:09)
[2021-08-18] MEDS: CLOPIDOGREL 75 MG TABLET PO SCH (08:32)
[2021-08-18] MEDS: ASPIRIN EC 81 MG TABLET.DR PO SCH (08:32)
[2021-08-18] MEDS: CITALOPRAM 20 MG TABLET PO SCH (08:32)
[2021-08-18] MEDS: NIFEdipine XL 60 MG TABSR PO SCH ×2 (08:32→16:30)
[2021-08-18] MEDS: FINASTERIDE 5 MG TABLET PO SCH (08:32)
[2021-08-18] MEDS: METOLAZONE 2.5 MG TABLET PO SCH (08:32)
[2021-08-18] MEDS: [UNRECOGNIZED DRUG - OTHER] PO SCH ×2 (08:32→16:31)
[2021-08-18] MEDS: DOCUSATE SODIUM 100 MG CAPSULE PO SCH ×2 (08:32→21:59)
[2021-08-18] MEDS: CYCLOSPORINE 100 MG PO SCH ×2 (08:32→16:31)
[2021-08-18] MEDS: predniSONE 5 MG TABLET PO SCH (08:32)
[2021-08-18] MEDS: CALCITRIOL 0.25 MCG CAPSULE PO SCH (08:33)
[2021-08-18] MEDS: FUROSEMIDE 40 MG/4 ML VIAL IV SCH ×2 (08:33→21:58)
[2021-08-18] MEDS: MYCOPHENOLATE MOFETIL 250 MG CAPSULE PO SCH ×2 (08:33→21:59)
--- NOTE | 2021-08-18 09:50 | NUR ---
titrated O2 to 3 Lpm nasal cannula pt tolerated denies sob. o2 sat 97%.
[2021-08-18 11:33] VITALS: BP 147/75
[2021-08-18] MEDS: PSEUDOEPHEDRINE HCL 30 MG TABLET PO PRN (11:56)
--- NOTE | 2021-08-18 12:40 | NUR ---
Dr. See is made aware of hgb 7.9 today, inc from 7.4 yesterday. patient still refusing blood transfusion despite explanation of risks and benefits and stated understanding. Per Dr. See he will talk to the patient tomorrow and if hgb <8 reiterate the importance of bt. pt made aware..
[2021-08-18 15:59] VITALS: BP 133/71
--- NOTE | 2021-08-18 17:34 | NUR ---
pt stated he's on 2 lpm o2 at home and would like to be titrated. no sob throughout the shift at 3 lpm. sr on monitor. titrated o2 down to 2 lpm o2 sat noted 96%. denies sob or pain. cont to monitor.
[2021-08-18 20:25] VITALS: BP 119/62
[2021-08-18] MEDS: ATORVASTATIN 10 MG TABLET PO SCH (21:59)
[2021-08-18] MEDS: TAMSULOSIN HCL 0.4 MG CAP.SR.24H PO SCH (21:59)
[2021-08-18] MEDS: LATANOPROST OPHT DROP 2.5 ML BOTTLE OP SCH (22:00)
[2021-08-18] MEDS: NORMAL SALINE NASAL 45 ML BOTTLE NS PRN (22:00)
[2021-08-18] MEDS: INSULIN GLARGINE,HUM 300 UNITS/3 ML CARTRIDGE SQ SCH (22:09)
[2021-08-18] MEDS: ZOLPIDEM 5 MG TABLET PO PRN (22:12)
--- NOTE | 2021-08-18 22:44 | NUR ---
patients blood glucose was 165. he asked for apple juice as a HS snack and stated that apple juice would be enoughto get him through the night. plan of care followed and monitored closely
[2021-08-19] VITALS: BP 139/76
[2021-08-19] MEDS: DEXTROSE 50% 50 ML DISP.SYRIN IV PRN ×2 (02:11→02:37)
--- NOTE | 2021-08-19 02:43 | NUR ---
patient called for cookies and candy. blood glucose was checked and was 43, gave d50. recheck showed blod glucose level pf 170. oatient given a tuna sandwich and apple juice
[2021-08-19 04:14] VITALS: BP 116/54
[2021-08-19] MEDS: IPRATROPIUM BROMIDE NASAL 15 ML BOTTLE 42 MCG/SPRAY NS SCH ×2 (06:25→14:07)
[2021-08-19] MEDS: BLOOD SUGAR DIAGNOSTIC 1 EACH STRIP VI SCH ×3 (06:25→16:12)
[2021-08-19] MEDS: PANTOPRAZOLE SODIUM 40 MG TABLET.DR PO SCH (06:25)
[2021-08-19] MEDS: NORMAL SALINE NASAL 45 ML BOTTLE NS PRN (06:25)
[2021-08-19 07:36] LABS: HEMATOCRIT 25.8 % (36.7-47.1); MEAN CORPUSCULAR HEMOGLOBIN 28.1 uug (23.8-33.4); MEAN CORPUSCULAR VOLUME 85.4 fL (73.0-96.2); PLATELET COUNT (AUTO) 312 K/uL (152-348)
--- NOTE | 2021-08-19 07:36 | NUR ---
received awake and watching tv. at 2 lpm o2 sat 98%. denies sob or pain. stated he slept well. iv intact. comfortable in bed. safety precautions in place.
--- NOTE | 2021-08-19 07:43 | NUR ---
patient reports sleeping well. blood sugar was 82 at 645
[2021-08-19 07:52] LABS: IRON, SERUM 40 ug/dL (50-175)
[2021-08-19 08:03] LABS: CARBON DIOXIDE 25 mmol/L (21-32); CHLORIDE 97 mmol/L (98-107); CREATININE 3.2 mg/dL (0.6-1.3); FERRITIN 123 ng/mL (26-388); GLUCOSE 118 mg/dL (74-106); POTASSIUM 3.6 mmol/L (3.5-5.1)
[2021-08-19 08:05] LABS: UREA NITROGEN, BLOOD 107 mg/dL (7-18)
[2021-08-19] MEDS: FUROSEMIDE 40 MG/4 ML VIAL IV SCH (08:18)
[2021-08-19] MEDS: CLOPIDOGREL 75 MG TABLET PO SCH (08:18)
[2021-08-19] MEDS: DOCUSATE SODIUM 100 MG CAPSULE PO SCH ×2 (08:19→20:32)
[2021-08-19] MEDS: ASPIRIN EC 81 MG TABLET.DR PO SCH (08:19)
[2021-08-19] MEDS: FINASTERIDE 5 MG TABLET PO SCH (08:19)
[2021-08-19] MEDS: CITALOPRAM 20 MG TABLET PO SCH (08:19)
[2021-08-19] MEDS: predniSONE 5 MG TABLET PO SCH (08:19)
[2021-08-19] MEDS: METOLAZONE 2.5 MG TABLET PO SCH (08:19)
[2021-08-19] MEDS: NIFEdipine XL 60 MG TABSR PO SCH ×2 (08:20→17:00)
[2021-08-19] MEDS: CYCLOSPORINE 100 MG PO SCH ×2 (08:20→17:09)
[2021-08-19] MEDS: MYCOPHENOLATE MOFETIL 250 MG CAPSULE PO SCH (08:20)
[2021-08-19] MEDS: [UNRECOGNIZED DRUG - OTHER] PO SCH ×2 (08:20→17:09)
[2021-08-19] MEDS: CALCITRIOL 0.25 MCG CAPSULE PO SCH (08:21)
[2021-08-19] MEDS: INSULIN REGULAR, HUMAN 300 UNIT/3 ML VIAL SQ PRN ×2 (11:36→16:10)
[2021-08-19 12:00] VITALS: BP 147/76
[2021-08-19 16:00] VITALS: BP 111/60
--- NOTE | 2021-08-19 16:09 | NUR ---
Dr. See in the room to examine the patient.
[2021-08-19] MEDS ORDERED: METO2.5T2 PO (16:20)
[2021-08-19] MEDS ORDERED: FURO-152 PO (16:23)
[2021-08-19 17:00] VITALS: BP 111/60
--- NOTE | 2021-08-19 18:56 | NUR ---
pt for discharge home and agreeable. lives 1 [place] away he stated. home meds obtained from pharmacy and given to patient. is aware and will pick up and delivery driver.
[2021-08-19] MEDS: TAMSULOSIN HCL 0.4 MG CAP.SR.24H PO SCH (20:00)
[2021-08-19] MEDS: ATORVASTATIN 10 MG TABLET PO SCH (20:00)
--- NOTE | 2021-08-19 20:29 | NUR ---
pt is discharged in improved condition; iv midline removed; pt is accompanied by SYSTEMS ENGINEER to car picked up by .
== END 2021-08-19 20:10 | disposition home or self-care (01) | DRG 291 ==
LOC: ER 14:24 → TELE3 22:33
PROVIDERS: ADMIT Internal Medicine Nephrology; ATTEND Internal Medicine Nephrology
PROC: 05HC33Z Insertion of Infusion Device into Left Basilic Vein, Percutaneous Approach (ICD-10-PCS; principal; 2021-08-14)
DX: I13.0 Hypertensive heart and chronic kidney disease with heart failure and stage 1 through stage 4 chronic kidney disease, or unspecified chronic kidney disease (principal); I50.33 Acute on chronic diastolic (congestive) heart failure; T86.19 Other complication of kidney transplant; N17.9 Acute kidney failure, unspecified; N18.4 Chronic kidney disease, stage 4 (severe); R71.0 Precipitous drop in hematocrit; E11.22 Type 2 diabetes mellitus with diabetic chronic kidney disease; Z79.899 Other long term (current) drug therapy; Z20.822 Contact with and (suspected) exposure to COVID-19; E21.3 Hyperparathyroidism, unspecified; E78.5 Hyperlipidemia, unspecified; Z87.891 Personal history of nicotine dependence; I44.0 Atrioventricular block, first degree; N28.1 Cyst of kidney, acquired; N40.1 Benign prostatic hyperplasia with lower urinary tract symptoms; R33.8 Other retention of urine; Y83.0 Surgical operation with transplant of whole organ as the cause of abnormal reaction of the patient, or of later complication, without mention of misadventure at the time of the procedure; Z79.02 Long term (current) use of antithrombotics/antiplatelets; Z79.1 Long term (current) use of non-steroidal anti-inflammatories (NSAID); Z79.4 Long term (current) use of insulin; Z86.73 Personal history of transient ischemic attack (TIA), and cerebral infarction without residual deficits; K21.9 Gastro-esophageal reflux disease without esophagitis; R09.02 Hypoxemia; Z88.2 Allergy status to sulfonamides; Z88.8 Allergy status to other drugs, medicaments and biological substances
CPT/HCPCS: 36415; 51798; 70030-TC; 71045; 76604; 83550; 83735; 83970; 84100; 84156; 84300; 84443; 85018; 85025; 86850; 86900; 86901; 86920; 93005; 93307; 94640; A4663; G0378; J1815; J1940; J2270; J3490; J7040; J7512; J7517